=== PATIENT | male | born 1945 | race Caucasian/White ===

== ENCOUNTER 2019-08-08 10:16 | Outpatient (RCR) | payer MEDICARE, SELFPAY ==
[2019-05-10 15:16] LABS: INR 2.1; Prothrombin Time 23.3 Seconds (11.1-14.7)
[2019-06-08 10:53] LABS: INR 2.1; Prothrombin Time 23.3 Seconds (11.1-14.7)
[2019-07-05 15:57] LABS: INR 1.6
[2019-07-24 10:04] LABS: INR 1.9; Prothrombin Time 21.2 Seconds (11.1-14.7)
== END 2019-08-08 23:59 | disposition home or self-care (01) ==
LOC: ANHLAB 10:16
PROVIDERS: PCP Internal Medicine; Visit Provider Internal Medicine Cardiovascular Disease
DX: Z51.81 Encounter for therapeutic drug level monitoring (principal); Z79.01 Long term (current) use of anticoagulants; I48.91 Unspecified atrial fibrillation
CPT/HCPCS: 36415; 85610

== ENCOUNTER 2019-09-13 09:37 | Outpatient (RCR) | payer MEDICARE, SELFPAY ==
[2019-08-15 09:39] LABS: INR 2.6; Prothrombin Time 27.6 Seconds (11.1-14.7)
[2019-09-13 10:37] LABS: INR 2.1; Prothrombin Time 23.2 Seconds (11.1-14.7)
== END 2019-11-13 23:59 | disposition home or self-care (01) ==
LOC: ANHLAB 09:37
PROVIDERS: PCP Internal Medicine; Visit Provider Internal Medicine Cardiovascular Disease
DX: Z51.81 Encounter for therapeutic drug level monitoring (principal); I48.91 Unspecified atrial fibrillation; Z79.01 Long term (current) use of anticoagulants
CPT/HCPCS: 36415; 85610

== ENCOUNTER 2020-02-08 09:33 | Outpatient (RCR) | payer MEDICARE, SELFPAY ==
[2019-11-27 11:52] LABS: INR 2.5; Prothrombin Time 26.1 Seconds (11.1-14.7)
[2019-12-26 14:25] LABS: INR 2.8
[2020-02-08 10:13] LABS: INR 3.6; Prothrombin Time 35.1 Seconds (11.1-14.7)
== END 2020-02-25 23:59 | disposition home or self-care (01) ==
LOC: ANHLAB 09:33
PROVIDERS: PCP Internal Medicine; Visit Provider Internal Medicine Cardiovascular Disease
DX: I48.91 Unspecified atrial fibrillation (principal); Z79.01 Long term (current) use of anticoagulants
CPT/HCPCS: 36415; 85610

== ENCOUNTER 2020-05-14 09:23 | Outpatient (RCR) | payer MEDICARE, SELFPAY ==
[2020-03-03 09:13] LABS: INR 3.2; Prothrombin Time 32.2 Seconds (11.1-14.7)
[2020-04-15 12:20] LABS: Prothrombin Time 30.9 Seconds (11.1-14.7)
[2020-05-14 10:57] LABS: INR 2.9; Prothrombin Time 31.2 Seconds (11.1-14.7)
== END 2020-06-01 23:59 | disposition home or self-care (01) ==
LOC: ANHLAB 09:23
PROVIDERS: PCP Internal Medicine; Visit Provider Internal Medicine Cardiovascular Disease
DX: Z51.81 Encounter for therapeutic drug level monitoring (principal); I48.91 Unspecified atrial fibrillation; Z79.01 Long term (current) use of anticoagulants
CPT/HCPCS: 36415; 85610

== ENCOUNTER 2020-08-21 13:37 | Outpatient (RCR) | payer MEDICARE, SELFPAY ==
[2020-06-05 15:33] LABS: INR 2.8; Prothrombin Time 29.8 Seconds (11.1-14.7)
[2020-07-10 10:52] LABS: INR 2.9; Prothrombin Time 31.1 Seconds (11.1-14.7)
[2020-08-21 14:49] LABS: INR 2.3; Prothrombin Time 25.7 Seconds (11.1-14.7)
== END 2020-09-03 23:59 | disposition home or self-care (01) ==
LOC: ANHLAB 13:37
PROVIDERS: PCP Internal Medicine; Visit Provider Internal Medicine Cardiovascular Disease
DX: Z51.81 Encounter for therapeutic drug level monitoring (principal); I48.91 Unspecified atrial fibrillation; Z79.01 Long term (current) use of anticoagulants
CPT/HCPCS: 36415; 85610

== ENCOUNTER 2020-11-18 10:51 | Outpatient (RCR) | payer MEDICARE, SELFPAY ==
[2020-09-17 12:00] LABS: INR 3.1; Prothrombin Time 32.6 Seconds (11.1-14.7)
[2020-10-16 10:20] LABS: INR 2.7
[2020-11-18 11:24] LABS: INR 2.8; Prothrombin Time 30.3 Seconds (11.1-14.7)
== END 2020-12-16 23:59 | disposition home or self-care (01) ==
LOC: ANHLAB 10:51
PROVIDERS: PCP Internal Medicine; Visit Provider Internal Medicine Cardiovascular Disease
DX: Z51.81 Encounter for therapeutic drug level monitoring (principal); I48.0 Paroxysmal atrial fibrillation; Z79.01 Long term (current) use of anticoagulants
CPT/HCPCS: 36415; 85610

== ENCOUNTER 2021-02-26 09:13 | Outpatient (RCR) | payer MEDICARE, SELFPAY ==
[2020-12-24 12:14] LABS: INR 3.1; Prothrombin Time 32.3 Seconds (11.1-14.7)
[2021-01-23 10:31] LABS: INR 3.1
[2021-02-26 09:54] LABS: Prothrombin Time 22.5 Seconds (11.1-14.7)
== END 2021-03-24 23:59 | disposition home or self-care (01) ==
LOC: ANHLAB 09:13
PROVIDERS: Visit Provider Internal Medicine Cardiovascular Disease
DX: Z51.81 Encounter for therapeutic drug level monitoring (principal); I48.0 Paroxysmal atrial fibrillation; Z79.01 Long term (current) use of anticoagulants
CPT/HCPCS: 36415; 85610

== ENCOUNTER 2021-05-05 12:27 | Outpatient (RCR) | payer MEDICARE, SELFPAY ==
[2021-04-02 10:52] LABS: Prothrombin Time 21.8 Seconds (11.1-14.7)
[2021-05-05 13:05] LABS: INR 2.9; Prothrombin Time 29.2 Seconds (11.1-14.7)
== END 2021-07-01 23:59 | disposition home or self-care (01) ==
LOC: ANHLAB 12:27
PROVIDERS: Visit Provider Internal Medicine Cardiovascular Disease
DX: Z51.81 Encounter for therapeutic drug level monitoring (principal); I48.0 Paroxysmal atrial fibrillation; Z79.01 Long term (current) use of anticoagulants
CPT/HCPCS: 36415; 85610

== ENCOUNTER 2021-09-10 10:56 | Outpatient (RCR) | payer MEDICARE, SELFPAY ==
[2021-07-07 10:27] LABS: INR 2.8; Prothrombin Time 28.6 Seconds (11.1-14.7)
[2021-09-10 11:20] LABS: INR 2.6; Prothrombin Time 26.7 Seconds (11.1-14.7)
== END 2021-10-05 23:59 | disposition home or self-care (01) ==
LOC: ANHLAB 10:56
PROVIDERS: Visit Provider Internal Medicine Cardiovascular Disease
DX: Z51.81 Encounter for therapeutic drug level monitoring (principal); I48.0 Paroxysmal atrial fibrillation; Z79.01 Long term (current) use of anticoagulants
CPT/HCPCS: 36415; 85610

== ENCOUNTER 2021-12-02 10:34 | Outpatient (RCR) | payer MEDICARE, SELFPAY ==
[2021-10-07 14:13] LABS: INR 2.5; Prothrombin Time 26.1 Seconds (11.1-14.7)
[2021-12-02 10:57] LABS: INR 2.3; Prothrombin Time 24.6 Seconds (11.1-14.7)
== END 2022-01-05 23:59 | disposition home or self-care (01) ==
LOC: ANHLAB 10:34
PROVIDERS: Visit Provider Internal Medicine Cardiovascular Disease
DX: Z51.81 Encounter for therapeutic drug level monitoring (principal); I48.91 Unspecified atrial fibrillation; Z79.01 Long term (current) use of anticoagulants
CPT/HCPCS: 36415; 85610

== ENCOUNTER 2022-05-24 10:51 | Outpatient (RCR) | payer MEDICARE, SELFPAY ==
[2022-03-03 11:55] LABS: INR 2.1; Prothrombin Time 22.9 Seconds (11.1-14.7)
[2022-03-31 11:54] LABS: INR 3.1; Prothrombin Time 30.8 Seconds (11.1-14.7)
[2022-05-06 12:34] LABS: INR 3.8; Prothrombin Time 36.2 Seconds (11.1-14.7)
[2022-05-24 12:04] LABS: INR 2.7
== END 2022-06-01 23:59 | disposition home or self-care (01) ==
LOC: ANHLAB 10:51
PROVIDERS: Visit Provider Internal Medicine Cardiovascular Disease
DX: Z51.81 Encounter for therapeutic drug level monitoring (principal); I48.91 Unspecified atrial fibrillation; Z79.01 Long term (current) use of anticoagulants
CPT/HCPCS: 36415; 85610

== ENCOUNTER 2022-09-29 10:40 | Outpatient (RCR) | payer MEDICARE, SELFPAY ==
[2022-07-08 11:50] LABS: INR 2.6; Prothrombin Time 27.2 Seconds (11.1-14.7)
[2022-08-06 12:19] LABS: Prothrombin Time 21.8 Seconds (11.1-14.7)
[2022-09-07 11:52] LABS: INR 2.7; Prothrombin Time 27.9 Seconds (11.1-14.7)
[2022-09-29 11:11] LABS: INR 3.1; Prothrombin Time 31.1 Seconds (11.1-14.7)
== END 2022-10-06 23:59 | disposition home or self-care (01) ==
LOC: ANHLAB 10:40
PROVIDERS: Visit Provider Internal Medicine Cardiovascular Disease
DX: Z51.81 Encounter for therapeutic drug level monitoring (principal); I48.91 Unspecified atrial fibrillation; Z79.01 Long term (current) use of anticoagulants
CPT/HCPCS: 36415; 85610

== ENCOUNTER 2022-10-26 10:33 | Outpatient (RCR) | payer MEDICARE, SELFPAY ==
[2022-10-26 11:06] LABS: INR 2.9; Prothrombin Time 29.1 Seconds (11.1-14.7)
== END 2023-01-19 08:54 | disposition home or self-care (01) ==
LOC: ANHLAB 10:33
PROVIDERS: PCP Hospitalist; Visit Provider Internal Medicine Cardiovascular Disease
DX: Z51.81 Encounter for therapeutic drug level monitoring (principal); I48.91 Unspecified atrial fibrillation; Z79.01 Long term (current) use of anticoagulants
CPT/HCPCS: 36415; 85610

== ENCOUNTER 2023-02-18 08:56 | Outpatient (RCR) | payer MEDICARE, SELFPAY ==
[2022-11-24 11:07] LABS: INR 2.5; Prothrombin Time 28.9 Seconds (11.1-14.7)
[2022-12-22 12:24] LABS: INR 1.9; Prothrombin Time 22.8 Seconds (11.1-14.7)
[2023-01-19 09:23] LABS: INR 1.9; Prothrombin Time 22.9 Seconds (11.1-14.7)
[2023-02-18 12:07] LABS: INR 2.6; Prothrombin Time 29.9 Seconds (11.1-14.7)
== END 2023-02-22 23:59 | disposition home or self-care (01) ==
LOC: ANHLAB 08:56
PROVIDERS: PCP Hospitalist; Referring Provider Hospitalist; Visit Provider Internal Medicine Cardiovascular Disease
DX: Z51.81 Encounter for therapeutic drug level monitoring (principal); I48.0 Paroxysmal atrial fibrillation; Z79.01 Long term (current) use of anticoagulants
CPT/HCPCS: 36415; 85610

== ENCOUNTER 2023-05-23 10:25 | Outpatient (RCR) | payer MEDICARE, SELFPAY ==
[2023-03-18 10:24] LABS: INR 2.1; Prothrombin Time 25.1 Seconds (11.1-14.7)
[2023-04-15 10:56] LABS: INR 2.1; Prothrombin Time 24.5 Seconds (11.1-14.7)
[2023-05-23 11:13] LABS: INR 2.6; Prothrombin Time 29.8 Seconds (11.1-14.7)
== END 2023-06-16 23:59 | disposition home or self-care (01) ==
LOC: ANHLAB 10:25
PROVIDERS: PCP Hospitalist; Visit Provider Internal Medicine Cardiovascular Disease
DX: Z51.81 Encounter for therapeutic drug level monitoring (principal); I48.0 Paroxysmal atrial fibrillation; Z79.01 Long term (current) use of anticoagulants
CPT/HCPCS: 36415; 85610

== ENCOUNTER 2023-08-09 14:39 | Outpatient (CLI) | payer MEDICARE, SELFPAY ==
[2023-08-09 15:12] LABS: Magnesium 1.2 mg/dL (1.6-2.3)
== END 2023-08-09 14:40 | disposition home or self-care (01) ==
LOC: ANHLAB 14:42
PROVIDERS: PCP Hospitalist; Visit Provider Internal Medicine Cardiovascular Disease
DX: I25.118 Atherosclerotic heart disease of native coronary artery with other forms of angina pectoris (principal); E11.59 Type 2 diabetes mellitus with other circulatory complications; I42.8 Other cardiomyopathies; I15.2 Hypertension secondary to endocrine disorders
CPT/HCPCS: 36415; 83735; 85610

== ENCOUNTER 2023-09-09 10:48 | Outpatient (RCR) | payer MEDICARE, SELFPAY ==
[2023-06-21 10:45] LABS: INR 2.9; Prothrombin Time 32.2 Seconds (11.1-14.7)
[2023-08-09 15:20] LABS: INR 2.1; Prothrombin Time 25.5 Seconds (11.1-14.7)
[2023-09-09 11:23] LABS: INR 2.8; Prothrombin Time 31.5 Seconds (11.1-14.7)
== END 2023-09-19 23:59 | disposition home or self-care (01) ==
LOC: ANHLAB 10:48
PROVIDERS: PCP Hospitalist; Visit Provider Internal Medicine Cardiovascular Disease
DX: Z51.81 Encounter for therapeutic drug level monitoring (principal); I48.0 Paroxysmal atrial fibrillation; Z79.01 Long term (current) use of anticoagulants
CPT/HCPCS: 36415; 85610

== ENCOUNTER 2023-11-10 10:05 | Outpatient (RCR) | payer MEDICARE, SELFPAY ==
[2023-10-12 12:14] LABS: INR 2.5; Prothrombin Time 28.8 Seconds (11.1-14.7)
[2023-11-10 11:26] LABS: INR 2.4; Prothrombin Time 27.8 Seconds (11.1-14.7)
== END 2024-01-10 23:59 | disposition home or self-care (01) ==
LOC: ANHLAB 10:05
PROVIDERS: PCP Hospitalist; Visit Provider Internal Medicine Cardiovascular Disease
DX: Z51.81 Encounter for therapeutic drug level monitoring (principal); I48.0 Paroxysmal atrial fibrillation; Z79.01 Long term (current) use of anticoagulants
CPT/HCPCS: 36415; 85610

== ENCOUNTER 2024-02-22 10:27 | Outpatient (RCR) | payer MEDICARE, SELFPAY ==
[2023-12-13 11:11] LABS: INR 2.3; Prothrombin Time 25.7 Seconds (11.1-14.7)
[2024-01-09 10:03] LABS: INR 2.3; Prothrombin Time 25.2 Seconds (11.1-14.7)
[2024-02-14 15:15] LABS: INR 1.6; Prothrombin Time 20.1 Seconds (11.1-14.7)
[2024-02-22 11:07] LABS: INR 2.1; Prothrombin Time 23.9 Seconds (11.1-14.7)
== END 2024-03-12 23:59 | disposition home or self-care (01) ==
LOC: ANHLAB 10:27
PROVIDERS: PCP Hospitalist; Visit Provider Internal Medicine Cardiovascular Disease
DX: Z51.81 Encounter for therapeutic drug level monitoring (principal); I48.0 Paroxysmal atrial fibrillation; Z79.01 Long term (current) use of anticoagulants
CPT/HCPCS: 36415; 85610

== ENCOUNTER 2024-06-05 11:37 | Outpatient (RCR) | payer MEDICARE, SELFPAY ==
[2024-03-29 11:31] LABS: Prothrombin Time 32.1 Seconds (11.1-14.7)
[2024-05-01 10:36] LABS: INR 2.2
[2024-06-05 12:07] LABS: INR 2.1; Prothrombin Time 23.9 Seconds (11.1-14.7)
== END 2024-06-27 23:59 | disposition home or self-care (01) ==
LOC: ANHLAB 11:37
PROVIDERS: PCP Hospitalist; Visit Provider Internal Medicine Cardiovascular Disease
DX: Z79.01 Long term (current) use of anticoagulants (principal); I48.0 Paroxysmal atrial fibrillation
CPT/HCPCS: 36415; 85610

== ENCOUNTER 2024-09-28 10:21 | Outpatient (RCR) | payer MEDICARE, SELFPAY ==
[2024-07-05 13:00] LABS: INR 2.4; Prothrombin Time 26.8 Seconds (11.1-14.7)
[2024-08-03 11:32] LABS: INR 2.2; Prothrombin Time 24.8 Seconds (11.1-14.7)
[2024-08-31 10:00] LABS: INR 2.7; Prothrombin Time 29.3 Seconds (11.1-14.7)
== END 2024-10-03 23:59 | disposition home or self-care (01) ==
LOC: ANHLAB 10:21
PROVIDERS: PCP Hospitalist; Visit Provider Internal Medicine Cardiovascular Disease
DX: I48.0 Paroxysmal atrial fibrillation (principal); Z79.01 Long term (current) use of anticoagulants
CPT/HCPCS: 36415; 85610

== ENCOUNTER 2025-01-23 11:20 | Outpatient (RCR) | payer MEDICARE, SELFPAY ==
[2024-10-31 14:16] LABS: INR 3.0; Prothrombin Time 31.8 Seconds (11.1-14.7)
[2024-11-29 12:12] LABS: INR 2.9; Prothrombin Time 30.4 Seconds (11.1-14.7)
[2024-12-22 10:40] LABS: INR 3.8; Prothrombin Time 36.1 Seconds (11.1-14.7)
[2024-12-31 12:46] LABS: INR 3.6; Prothrombin Time 34.8 Seconds (11.1-14.7)
[2025-01-14 12:39] LABS: INR 4.3; Prothrombin Time 39.7 Seconds (11.1-14.7)
[2025-01-23 12:14] LABS: INR 3.0; Prothrombin Time 30.0 Seconds (11.1-14.7)
== END 2025-01-29 23:59 | disposition home or self-care (01) ==
LOC: ANHLAB 11:20
PROVIDERS: PCP Hospitalist; Visit Provider Internal Medicine Cardiovascular Disease
DX: Z51.81 Encounter for therapeutic drug level monitoring (principal); I48.0 Paroxysmal atrial fibrillation; Z79.01 Long term (current) use of anticoagulants
CPT/HCPCS: 36415; 85610

== ENCOUNTER 2025-03-08 13:24 | Emergency (ER) | payer MEDICARE, SELFPAY ==
[2025-03-08] VITALS (7 sets, daily range): BP systolic 95–162; BP diastolic 57–91; PULSE 83–102; RESP 18–22; TEMP 37.7; O2SAT 94–100
--- NOTE | ~2025-03-08 | CT_ITS ---
EXAMINATION: CT abdomen pelvis w con DATE: 03/08/2025 18:08 INDICATION: Transaminitis TECHNIQUE: Computed tomography (CT) of the abdomen and pelvis was performed with 100 cc Omnipaque 350 intravenous contrast. The dose-length product was 653.21 mGy-cm. Automated exposure control and iterative reconstruction technique were employed. COMPARISON: CT dated 09/14/2015 FINDINGS: There is bilateral lower lobe atelectasis. Heart size normal. Status post cholecystectomy with expected prominence of the bile ducts. The spleen contains a small subcentimeter cysts. There is a small 1 cm left renal cyst. There is atrophy of the pancreas with fatty replacement. No hydronephrosis. There is atherosclerosis of the aorta without evidence for aneurysm. No lymphadenopathy. Nonobstructive bowel pattern. No evidence for diverticulitis or appendicitis.No free air or free fluid. Enlarged prostate gland. Severe lumbar spondylosis. There is grade 2 spondylolisthesis at L5-S1 secondary to spondylolysis. IMPRESSION: 1. No acute abdominal abnormality. Reviewed, dictated and finalized at location O.
--- NOTE | ~2025-03-08 | XR_ITS ---
XR chest 2V 03/08/2025 14:58 Indication: Weakness. Procedure: 2 view chest Comparison: 09/14/2015 Findings: Status post median sternotomy for CABG. Chronic left basilar infiltrates, most consistent with atelectasis or scarring. No significant effusion no acute focal pneumonia, edema or pneumothorax. Impression: 1: No acute cardiopulmonary disease. 2: Chronic left basilar infiltrates, consistent with atelectasis or scarring. Reviewed, dictated and finalized at location O. Impression: 1: No acute cardiopulmonary disease. 2: Chronic left basilar infiltrates, consistent with atelectasis or scarring.
--- OUTSIDE RECORDS SUMMARY | 2025-03-08 13:38 | XMS_ITS | Encounter Summary ---
Author Organization [facility] Address [address] [place] [address] Care Team Providers Care Drum Barker Operator Name Role Phone Lino Sarah MD Primary Care Provider Un available Encounter Details Date Type Department Care Team (Late st Contact Info) Description 11/20/2007 Outpatient Historical [facility] Internal Medicine [place] Julián [address] [place] [phone] Lino Carrillo ms, MD Social History Tobacco Use Types Packs/Day Years Used Date Smoking Tobacco: Never Assessed Sex and Gender Information Value Date Recorded Sex Assigned at Not on file 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
--- OUTSIDE RECORDS SUMMARY | 2025-03-08 13:39 | XMS_ITS | Encounter Summary ---
Author Organization [facility] Address [address] [place] [address] Care Team Providers Care Property And Supply Officer Name Role Phone Lino Sarah MD Primary Care Provider Un available Encounter Details Date Type Department Care Team (Late st Contact Info) Description 10/27/2004 Outpatient Historical 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 Gender Identity Not on file Sexual Orientation Not on file documented as of this encounter Last Filed Vital Signs Vital Sign Reading Time Taken Comments Blood Pressure 132/86 10/27/2004 10:15 AM CDT Pulse 72 10/27/2004 10:15 AM CDT Temperature 36.2 C (97.2 F) 10/27/2004 10:15 AM CDT Respiratory Rate 16 10/27/2004 10:15 AM CDT Oxygen Saturation - - Inhaled Oxygen Concentration - - Weight 111.1 kg (245 lb) 10/27/2004 10:15 AM CDT Height 182.9 cm (6') 10/27/2004 10:15 AM CDT Body Mass Index 33.23 10/27/2004 10:15 AM CDT documented in this encounter Plan of Treatment Not on file documented as of this encounter Visit Diagnoses Not on filedocumented in this encounter Care Teams Property And Supply Officer Relationship Specialty Start Date End Date Lino Sarah MD NO ADDRESS ON FILE PCP - General 11/29/07 documented as of this encounter
--- OUTSIDE RECORDS SUMMARY | 2025-03-08 13:39 | XMS_ITS | Encounter Summary ---
Author Organization [employer] Address [address] Attn: Epic Prelude ADT [place] [address] Care Team Providers Care Fisheries Technician Name Role Phone Lino Sarah MD Primary Care Provider Un available Encounter Details Date Type Department Care Team (Late st Contact Info) Description 10/21/1998 Outpatient Historical Elvira Treviño MD [address] [place] [address] Social History Tobacco Use Types Packs/Day Years Used Date Smoking Tobacco: Never Assessed Sex and Gender Information Value Date Recorded Sex Assigned at Not on file 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
--- OUTSIDE RECORDS SUMMARY | 2025-03-08 13:39 | XMS_ITS | Encounter Summary ---
Author Organization [employer] Address 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 Gender Identity Not on file Sexual Orientation Not on file documented as of this encounter Plan of Treatment Not on file documented as of this encounter Procedures Procedure Name Priority Date/Time Associated Diagnosis Comments PT AND APTT Routine 03/01/2007 12:25 PM CDT CBC WITH DIFFERENTIAL Routine 03/01/2007 12:25 PM CDT CBC WITH DIFFERENTIAL Routine 03/01/2007 12:25 PM CDT BASIC METABOLIC PANEL Routine 03/01/2007 12:25 PM CDT documented in this encounter Results * CBC WITH DIFFERENTIAL (03/01/2007 12:25 PM CDT) NEUTROPHILS 61 45 - 70 % INTERFAC E SYSTEM LYMPHOCYTES 30 16 - 45 % INTERFAC E SYSTEM MONOCYTES 6 3 - 13 % INTERFACE SYSTEM EOSINOPHILS 2 0 - 7 % INTERFAC E SYSTEM BASOPHILS 1 0 - 2 % INTERFACE SYSTEM NEUTROPHIL ABSOLUTE 4.59 1.90 - 7.00 K/uL INTERFACE SYSTEM LYMPHOCYTE ABSOLUTE 2.28 0.70 - 4.50 K/uL INTERFACE SYSTEM MONOCYTE ABSOLUTE 0.46 0.10 - 1.30 K/uL INTERFACE SYSTEM EOSINOPHIL ABSOLUTE 0.17 0.00 - 0.70 K/uL INTERFACE SYSTEM BASOPHILS ABSOLUTE 0.05 0.00 - 0.20 K/uL INTERFACE SYSTEM 03/01/2007 12:[address] [facility] Nataliia Burnham MD HEMATOLOGY ORDERABLES E dited Performing Organization Address City/[facility] de Phone Number INTERFACE SYSTEM Refer to clinic/hospital department * (ABNORMAL) CBC WITH DIFFERENTIAL (03/01/2007 12:25 PM CDT) WBC 7.6 4.0 - 9.8 K/uL INTERFACE SYSTEM RBC 4.69 4.50 - 5.40 M/uL INTERFACE SYSTEM HEMOGLOBIN 15.0 13.6 - 16.5 g/dL INTERFACE SYSTEM HEMATOCRIT 41.2 40.0 - 48.0 % INTERFACE SYSTEM MCV 87.8 82.0 - 99.0 fL INTERFACE SYSTEM MCH 32.0 27.2 - 32.6 pg INTERFACE SYSTEM MCHC 36.4(H) 31.5 - 35.5 % INTERFACE SYSTEM RDW 12.2 11.5 - 14.5 % INTERFACE SYSTEM RDW-STDEV 39.3 37.1 - 48.7 fL INTERFACE SYSTEM PLATELETS 171 140 - 350 K/uL INTERFACE SYSTEM MPV 10.9 9.3 - 12.4 fL INTERFACE SYSTEM 03/01/2007 12:2 5 PM CDT Nataliia Burnham MD HEMATOLOGY ORDERABLES E dited Performing Organization Address [facility] de Phone Number INTERFACE SYSTEM Refer to clinic/hospital department * (ABNORMAL) BASIC METABOLIC PANEL (03/01/2007 12:25 PM CDT) GLUCOSE 280(H) 65 - 99 mg/dL INTERFACE SYSTEM CREATININE 1.09 0.67 - 1.17 mg/dL INTERFACE SYSTEM CALCIUM 10.7(H) 8.4 - 10.2 mg/dL INTERFACE SYSTEM BUN 27(H) 6 - 20 mg/dL INTERFACE SYSTEM SODIUM 133(L) 135 - 145 mmol/L INTERFACE SYSTEM POTASSIUM 4.9 3.5 - 4.9 mmol/L INTERFACE SYSTEM CHLORIDE 101 96 - 108 mmol/L INTERFACE SYSTEM CO2 26 22 - 30 mmol/L INTERFACE SYSTEM GFR, >60 >=60 mL/min/1. 7 sq meter INTERFACE SYSTEM GFR >60 >=60 mL/min/1. 7 sq meter INTERFACE SYSTEM Comment: Estimated GFR rate interpretative information for both Americans and non- Americans is available on the [facility] Intranet at: [email or web address] Select: Lab Policies and Procedures Select: Reference Ranges - GFR 03/01/2007 12:2 5 PM CDT Nataliia Burnham MD CHEMISTRY ORDERABLES Ed ited INTERFACE SYSTEM Refer to clinic/hospital department * PT AND APTT (03/01/2007 12:25 PM CDT) PTT 28.6 24.4 - 36.4 Seconds INTERFACE SYSTEM Comment: PTT Therapeutic Range: Heparin Level PTT (seconds) <0.10 units/mL <53 0.10 - 0.30 units/mL 53 - 67 0.30 - 0.70 units/mL* 67 - 95* 0.70 - 1.00 units/mL 95 - 116 *corresponds to therapeutic range for unfractionated heparin PROTIME 13.5 12.7 - 15.1 Seconds INTERFACE SYSTEM INR 1.0 0.9 - 1.1 INTERFACE SYSTEM Comment: INR Therapeutic Range: Adult: 2.0 - 3.0 for pulmonary embolism or prophylaxis against venous thrombosis or systemic embolization. 2.0 - 3.0 for patients with tissue heart valves. 2.5 - 3.5 for patients with mechanical heart valves or post MT. Pediatric (12 years and under): 1.5 - 3.0 Although the target range in children is not well established , INR values of 1.5 - 3.0 are recommended for most patients. Higher values have been used in children with prosthetic cardiac valves and hereditary clotting disorders. (<3 days) therapeutic ranges have not been established. 03/01/2007 12:2 5 PM CDT us Nataliia Burnham MD HEMATOLOGY ORDERABLES E dited INTERFACE SYSTEM Refer to clinic/hospital department documented in this encounter Visit Diagnoses Diagnosis Nonspecific abnormal unspecified cardiovascular function study- Primary documented in this encounter Care Teams Director Social Relationship Specialty Start Date End Date Lino Sarah MD NO ADDRESS ON FILE PCP - General 11/29/07 documented as of this encounter
--- OUTSIDE RECORDS SUMMARY | 2025-03-08 13:39 | XMS_ITS | Encounter Summary ---
Author Organization [facility] Address [address] [place] [address] Care Team Providers Care New Car Inspector Name Role Phone Lino Sarah MD Primary Care Provider Un available Encounter Details Date Type Department Care Team (Late st Contact Info) Description 2006 Outpatient Historical [facility] Internal Medicine [place] Julián [address] [address] [place] [address] Bobby Choe MD [address] [place] [address] Social History Tobacco Use Types Packs/Day Years Used Date Smoking Tobacco: Never Assessed Sex and Gender Information Value Date Recorded Sex Assigned at Not on file 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 Gender Identity Not on file Sexual Orientation Not on file documented as of this encounter Last Filed Vital Signs Vital Sign Reading Time Taken Comments Blood Pressure 116/76 2006 1:15 PM CDT Pulse 60 2006 1:15 PM CDT Temperature 36.2 C (97.2 F) 2006 1:15 PM CDT Respiratory Rate 20 2006 1:15 PM CDT Oxygen Saturation - - Inhaled Oxygen Concentration - - Weight 108 kg (238 lb) 2006 1:15 PM CDT Height 176.5 cm (5' 9.5) 2006 1:15 PM CDT Body Mass Index 34.64 2006 1:15 PM CDT documented in this encounter Plan of Treatment Not on file documented as of this encounter Visit Diagnoses Not on filedocumented in this encounter Care Teams New Car Inspector Relationship Specialty Start Date End Date Lino Sarah MD NO ADDRESS ON FILE PCP - General 11/29/07 documented as of this encounter
--- OUTSIDE RECORDS SUMMARY | 2025-03-08 13:39 | XMS_ITS | Encounter Summary ---
Author Organization [facility] Address [address] 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 PCP: ebony. WHO CALLED: Pharmacy called. PHARMACY NUMBER: [phone] SECTION 1: REQUESTED ACTION marnie 02/01/06 at 01:46 pm: MEDICATION REQUEST: Patient requests a refill. MEDICATIONS: PLAVIX ORAL TABLET 75 MG, 1 Every Day, 30 Dispensed, 3 Fills, 30 Duration/Days Supply, status: CONTINUED, 09/01/2005. GLIPIZIDE XL ORAL TABLET 24 HR 10 MG, 1 Every Day, 30 Dispensed, 3 Fills, 30 Duration/Days Supply, status: CONTINUED, 09/01/2005. NORVASC ORAL TABLET 10 MG, 1 Every Day, 30 Dispensed, 3 Fills, 30 Duration/Days Supply, status: CONTINUED, 09/01/2005. ISOSORBIDE MONONITRATE ORAL TABLET 24 HR 30 MG, 1 Every Day, 30 Dispensed, 3 Fills, 30 Duration/Days Supply, status: CONTINUED, 09/01/2005. VYTORIN ORAL TABLET 10-40 MG, 1 Every Day, 30 Dispensed, 3 Fills, 30 Duration/Days Supply, status: CONTINUED, 09/01/2005. LISINOPRIL ORAL TABLET 20 MG, 1 Every Day, 30 Dispensed, 3 Fills, 30 Duration/Days Supply, status: CONTINUED, 09/01/2005. TOPROL XL ORAL TABLET 24 HR 50 MG, 1 Every Day, 30 Dispensed, 3 Fills, 30 Duration/Days Supply, status: CONTINUED, 09/01/2005. last fills 12-30-05 FINAL ACTION: william 02/01/06 at 03:11 pm Called pharmacy at 02/01/06 at 03:11 pm. refilled x's 2 Electronically Signed by: Princess Long on Wednesday, February 01, 2006 documented in this encounter Plan of Treatment Not on file documented as of this encounter Visit Diagnoses Not on filedocumented in this encounter Care Teams Electron Gun Assembler Relationship Specialty Start Date End Date Lino Sarah MD NO ADDRESS ON FILE PCP - General 11/29/07 documented as of this encounter
--- OUTSIDE RECORDS SUMMARY | 2025-03-08 13:39 | XMS_ITS | Encounter Summary ---
Author Organization [facility] Address [address] [place] [address] Care Team Providers Care Milk Wagon Driver Name Role Phone Lino Sarah MD Primary Care Provider Un available Encounter Details Date Type Department Care Team (Late st Contact Info) Description 12/31/1999 Outpatient Historical [facility] Internal Medicine Dara Gallego [address] [address] [place] [phone] [place] [address] [place] [address] Social History Tobacco Use Types Packs/Day Years Used Date Smoking Tobacco: Never Assessed Sex and Gender Information Value Date Recorded Sex Assigned at Not on file 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
--- OUTSIDE RECORDS SUMMARY | 2025-03-08 13:39 | XMS_ITS | Encounter Summary ---
Author Organization [employer] Address 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 Gender Identity Not on file Sexual Orientation Not on file documented as of this encounter Plan of Treatment Not on file documented as of this encounter Procedures Procedure Name Priority Date/Time Associated Diagnosis Comments CBC WITH DIFFERENTIAL Routine 10/27/2004 11:00 AM CDT CBC WITH DIFFERENTIAL Routine 10/27/2004 11:00 AM CDT PSA Routine 10/27/2004 11:00 AM CDT LIPASE Routine 10/27/2004 11:00 AM CDT HEMOGLOBIN A1C Routine 10/27/2004 11:00 AM CDT AMYLASE Routine 10/27/2004 11:00 AM CDT COMPREHENSIVE METABOLIC PANEL Routine 10/27/2004 11:00 AM CDT documented in this encounter Results * CBC WITH DIFFERENTIAL (10/27/2004 11:00 AM CDT) NEUTROPHILS 57 45 - 70 % INTERFAC E SYSTEM LYMPHOCYTES 32 16 - 45 % INTERFAC E SYSTEM MONOCYTES 7 3 - 13 % INTERFACE SYSTEM EOSINOPHILS 3 0 - 7 % INTERFAC E SYSTEM BASOPHILS 1 0 - 2 % INTERFACE SYSTEM NEUTROPHIL ABSOLUTE 3.10 1.90 - 7.00 K/uL INTERFACE SYSTEM LYMPHOCYTE ABSOLUTE 1.76 0.70 - 4.50 K/uL INTERFACE SYSTEM MONOCYTE ABSOLUTE 0.38 0.10 - 1.30 K/uL INTERFACE SYSTEM EOSINOPHIL ABSOLUTE 0.17 0.00 - 0.70 K/uL INTERFACE SYSTEM BASOPHILS ABSOLUTE 0.04 0.00 - 0.20 K/uL INTERFACE SYSTEM 10/27/2004 11:0 0 AM CDT us Kaz Darnell MD HEMATOLOGY ORDERABLES Final Res ult Performing Organization Address [facility] de Phone Number INTERFACE SYSTEM Refer to clinic/hospital department * (ABNORMAL) CBC WITH DIFFERENTIAL (10/27/2004 11:00 AM CDT) WBC 5.5 4.0 - 9.8 K/uL INTERFACE SYSTEM RBC 5.10 4.50 - 5.40 M/uL INTERFACE SYSTEM HEMOGLOBIN 16.2 13.6 - 16.5 g/dL INTERFACE SYSTEM HEMATOCRIT 48.1(H) 40.0 - 48.0 % INTERFACE SYSTEM MCV 94.3 82.0 - 99.0 fL INTERFACE SYSTEM MCH 31.8 27.2 - 32.6 pg INTERFACE SYSTEM MCHC 33.7 31.5 - 35.5 % INTERFACE SYSTEM RDW 12.9 11.5 - 14.5 % INTERFACE SYSTEM RDW-STDEV 44.6 37.1 - 48.7 fL INTERFACE SYSTEM PLATELETS 206 140 - 350 K/uL INTERFACE SYSTEM MPV 10.8 9.3 - 12.4 fL INTERFACE SYSTEM 10/27/2004 11:0 0 AM CDT us Kaz Darnell MD HEMATOLOGY ORDERABLES Final Res ult Performing Organization Address [facility] de Phone Number INTERFACE SYSTEM Refer to clinic/hospital department * PSA (10/27/2004 11:00 AM CDT) PSA 0.5 0.0 - 4.0 ng/mL INTERFACE SYSTEM Comment:Performed on [employer] E170 System 10/27/2004 11:0 0 AM CDT us Kaz Darnell MD CHEMISTRY ORDERABLES Final Resu lt Performing Organization Address [facility] Phone Number INTERFACE SYSTEM Refer to clinic/hospital department * LIPASE (10/27/2004 11:00 AM CDT) LIPASE 23 13 - 60 U/L INTERFAC E SYSTEM 10/27/2004 11:0 0 AM CDT us Kaz Darnell MD CHEMISTRY ORDERABLES Final Resu lt Performing Organization Address [facility] Phone Number INTERFACE SYSTEM Refer to clinic/hospital department * (ABNORMAL) HEMOGLOBIN A1C (10/27/2004 11:00 AM CDT) HEMOGLOBIN A1C 7.9(H) 3.9 - 6.1 % of Hgb INTERFACE SYSTEM Comment: Note: Analyzer upgraded from [employer] Variant to Variant II. No change in methodology. GLUCOSE, MEAN BLOOD 177 mg/dL INTERFACE SYSTEM 10/27/2004 11:0 0 AM CDT us Kaz Darnell MD CHEMISTRY ORDERABLES Final Resu lt Performing Organization Address [facility] Phone Number INTERFACE SYSTEM Refer to clinic/hospital department * AMYLASE (10/27/2004 11:00 AM CDT) AMYLASE 51 28 - 100 U/L INTERFACE SYSTEM 10/27/2004 11:0 0 AM CDT Result Alexis Darnell MD CHEMISTRY ORDERABLES Final Resu lt Performing Organization Address City/[facility] Phone Number INTERFACE SYSTEM Refer to clinic/hospital department * (ABNORMAL) COMPREHENSIVE METABOLIC PANEL (10/27/2004 11:00 AM CDT) GLUCOSE 296(H) 65 - 109 mg/dL INTERFACE SYSTEM CREATININE 0.9 0.5 - 1.3 mg/dL INTERFACE SYSTEM CALCIUM 10.8(H) 8.6 - 10.2 mg/dL INTERFACE SYSTEM AST 48(H) 12 - 38 U/L INTERFACE SYSTEM ALKALINE PHOSPHATASE 171(H) 40 - 129 U/L INTERFACE SYSTEM BUN 20 6 - 20 mg/dL INTERFACE SYSTEM BILIRUBIN TOTAL 1.2(H) 0.2 - 1.0 mg/dL INTERFACE SYSTEM ALBUMIN 4.6 3.4 - 4.8 g/dL INTERFACE SYSTEM TOTAL PROTEIN 7.7 6.3 - 8.6 g/dL INTERFACE SYSTEM ALT 176(H) 0 - 41 U/L INTERFACE SYSTEM SODIUM 137 135 - 145 mmol/L INTERFACE SYSTEM POTASSIUM 4.9 3.5 - 4.9 mmol/L INTERFACE SYSTEM CHLORIDE 103 96 - 108 mmol/L INTERFACE SYSTEM CO2 22 22 - 30 mmol/L INTERFACE SYSTEM 10/27/2004 11:0 0 AM CDT us Kaz Darnell MD CHEMISTRY ORDERABLES Final Resu lt INTERFACE SYSTEM Refer to clinic/hospital department documented in this encounter Visit Diagnoses Diagnosis Abdominal pain, epigastric- Primary documented in this encounter Care Teams Dermatologist And Dermatopathologist Relationship Specialty Start Date End Date Lino Sarah MD NO ADDRESS ON FILE PCP - General 11/29/07 documented as of this encounter
--- OUTSIDE RECORDS SUMMARY | 2025-03-08 13:39 | XMS_ITS | Encounter Summary ---
Author Organization [employer] Address 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
--- OUTSIDE RECORDS SUMMARY | 2025-03-08 13:39 | XMS_ITS | Encounter Summary ---
Author Organization [employer] Address 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
--- OUTSIDE RECORDS SUMMARY | 2025-03-08 13:39 | XMS_ITS | Encounter Summary ---
Author Organization [employer] Address [address] 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 MEDICATIONS: Medication list current. CHIEF COMPLAINT establish physician. Pt's fbs is 323 HISTORY: HISTORY: 250.02-DM TYPE II UNCONTROLLED The diabetes remains stable. The patient has gained weight. Patient not compliant with diet instructions. The patient is not exercising. The patient has had a change invision, has polyuria, denies polydipsia, has polyphagia. The patient is not checking blood sugars out of office, does not have a glucometer. The patient is tolerating the medication. No recent laboratory work done. He has not follow up in about a year 272.4-HYPERLIPIDEMIA The patient has gained weight. The patient is not compliant with the low saturated fat diet. The patient does not exercise. Currently the patient is off all medication. 401.1-HYPERTENSION ESSENTIAL BENIGN The patient has gained weight. The patient is not compliant with diet. 414.00-CORONARY ARTERY DISEASE The patient's chest pain pattern has been stable. The patient deniesdyspnea on exertion, denies orthopnea, denies palpitations, denies pedal edema. No complications noted from the medication presently being used. No recent laboratory work done. 600.00-BPH W/O OBSTRUCTION No urinary symptoms HISTORY OF PRESENT ILLNESS: CURRENT PROBLEM LIST: 250.02 DM TYPE II UNCONTROLLED 272.4 HYPERLIPIDEMIA 401.1 HYPERTENSION ESSENTIAL BENIGN 414.00 CORONARY ARTERY DISEASE 600.00 BPH W/O OBSTRUCTION 715.91 OSTEOARTHRITIS/DJD SHOULDER 780.79 FATIGUE 789.06 ABD PAIN EPIGASTRIC CURRENT MEDICATION LIST: NITROGLYCERIN SUBLINGUAL TABLET SUBLINGUAL 0.4 MG, PRN LISINOPRIL ORAL TABLET 20 MG, 1 Every Day NORVASC ORAL TABLET 10 MG, 1 Every Day AVANDIA ORAL TABLET 2 MG, 1/2 Every Day GLIPIZIDE XL ORAL TABLET 24 HR 10 MG, 1 Every Day VYTORIN ORAL TABLET 10-40 MG, 1 Every Day TOPROL XL ORAL TABLET 24 HR 50 MG, 1 Every Day ISOSORBIDE MONONITRATE ORAL TABLET 24 HR 30 MG, 1 Every Day PLAVIX ORAL TABLET 75 MG, 1 Every Day ROS: GENERAL: Normal activity and energy level, no change in appetite. No major weight gain or loss. No malaise, chills, fever, diaphoresis. ALLERGIC/IMMUNOLOGIC: No hay fever or history of environmental allergies. No chronic problems with immunity. EYES: HAS BLURRED VISION. ENT: No hearing loss, epistaxis, hoarseness or dysphagia. No sinus congestion. ENDOCRINE: No heat or cold intolerance, no excessive thirst. CARDIAC: No chest pain, palpitations, orthopnea, dyspnea on exertion, or paroxysmal nocturnal dyspnea. RESPIRATORY: No dyspnea, cough, hemoptysis or wheezing. : No dysuria or hematuria. GI: No abdominal pain, nausea, vomiting, diarrhea, constipation, melena, or hematochezia. NEUROLOGIC: No weakness, dizziness, loss of consciousness, transient ischemic symptoms, or seizures. PSYCHIATRIC: No increased nervousness, mood changes or depression. Coping well. SOCIAL HISTORY: MARITAL HISTORY: , living with spouse. TOBACCO USE: Has no significant smoking history. ALCOHOL: Does not give any significant history of alcohol usage. PHYSICAL EXAMINATION: CONSTITUTIONAL: GENERAL APPEARANCE: Healthy appearing patient in no distress. EYES: PUPILS: Pupils equal and normally reactive to light and accommodation. EARS, NOSE, MOUTH AND THROAT: EARS: Tympanic membranes shiny without retraction. Canals unremarkable. Hearing grossly normal. ORAL: Inspection of gums, lips, palate, and teeth normal. No scars, lesions, or masses. Oral mucosaunremarkable with non-inflamed posterior pharynx. NECK/THYROID: Trachea midline. No thyroid enlargement, tenderness, or mass. No supraclavicular or cervical adenopathy. RESPIRATORY: Clear to auscultation and percussion. Normal respiratory effort. CARDIOVASCULAR: CARDIAC: Regular rhythm. No murmurs, rubs, or gallops. EDEMA/VARICOSITIES OF EXTREMITIES: No edema or varicosities. GASTROINTESTINAL: ABDOMEN: Soft, non-tender, without masses. Bowel sounds active. MUSCULOSKELETAL EXAM: EXTREMITIES: DIABETIC II FOOT EXAM: The patient`s monofilament exam was WNL, foot exam revealed no significant callousing, post tibial and dorsalis pedis pulses are within normal limits. NEUROLOGIC: CRANIAL NERVES: veterans' coordinator II-XII grossly intact. PSYCHIATRIC: Judgment appropriate. Oriented. Normal memory. Mood and affect appropriate. ASSESSMENT/PLAN: 250.02-DM TYPE II UNCONTROLLED ASSESSMENT: The diabetes is poorly controlled. Will not change medication, continue to monitor for complications. Will check laboratory. Will await lab to make adjustments in medications. There are many issues going on. Mark is non- compliant with his diet. He does not admit it but his does. He has not been checking his blood sugars. He has just kind of let his diabetes care go. I have spoken with him about the importance of good diabetic control especially with his other medical conditions. He understands. I have given him a glucometer and he will check his BS at least 2 times a day. We will await blood work to see what changes need to be made. LAB ORDERS: Order number: [id number] Test Ordered: COMPREHENSIVE METABOLIC PANEL 60179 Order number: [id number] Test Ordered: HEMOGLOBIN A1c 496 Order number: [id number] Test Ordered: LIPID PANEL 7600 Order number: [id number] Test Ordered: MICROALBUMIN/CREATININE RATIO, RANDOM URINE 6517 Order number: [id number] Test Ordered: PSA 5363 Order number: [id number] Test Ordered: TSH 899 272.4-HYPERLIPIDEMIA ASSESSMENT: Will not change medication, continue to monitor for complications. A low cholesterol diet was encouraged, not attempting to follow a low cholesterol diet. Weight loss was encouraged. Regular exercise was encouraged. Will check laboratory. 401.1-HYPERTENSION ESSENTIAL BENIGN ASSESSMENT: The blood pressure remains satisfactory. Will not change medication, continue to monitor for complications. Weight loss was discussed and encouraged. Regular exercise was encouraged. 414.00-CORONARY ARTERY DISEASE ASSESSMENT: The patient's chest pain pattern remains stable. Will not change medication, continue to monitor for complications. 600.00-BPH W/O OBSTRUCTION ASSESSMENT: no symptoms. Will check PSA SPECIALTY REFERRAL: DERMATOLOGY Dr. Bethel Joy ph: [phone] fax: [phone]. RETURN VISIT : Patient instructed to return in a few months. Electronically Signed by: Lino Henderson MD on Thursday, September 01, 2005 Electronically Signed by: Bobby Choe MD on Tuesday, September 13, 2005 * [employer] Transcriptions - 04/11/2008 4:48 PM CDT TIME:01:52 pm PATIENT`S HOME PHONE: PATIENT`S WORK PHONE: PATIENT`S INSURANCE: [facility] WHO TOOK THE CALL: Ciera Kim J GENERAL INFORMATION PATIENT STATUS: Established Patient. PCP: ebony. ALTERNATIVE PHONE NUMBER: [phone] WHO CALLED: Patient`s spouse called. SECTION 1: REQUESTED ACTION marnie 09/01/05 at 01:53 pm: SPECIALTY REFERRAL: DERMATOLOGY Dr. Bethel Joy ph: [phone] fax: [phone]. [address] Appoint on September 08 Medicare complete dx: Skin screening FINAL ACTION: elen 09/01/05 at 02:09 pm ADDITIONAL COMMENTS: referral done and faxed to dr joy's office Electronically Signed by: Lynsey Barber on Thursday, September 01, 2005 documented in this encounter Plan of Treatment Not on file documented as of this encounter Visit Diagnoses Not on filedocumented in this encounter Care Teams Ancillary Services Manager Therapy Relationship Specialty Start Date End Date Lino Sarah MD NO ADDRESS ON FILE PCP - General 11/29/07 documented as of this encounter
--- OUTSIDE RECORDS SUMMARY | 2025-03-08 13:39 | XMS_ITS | Encounter Summary ---
Author Organization [facility] Address [address] [place] [address] Care Team Providers Care Bandage Winding Machine Operator Name Role Phone Lino Sarah MD Primary Care Provider Un available Encounter Details Date Type Department Care Team (Late st Contact Info) Description 02/06/2007 Outpatient Historical [facility] Internal Medicine [place] [address] 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
--- OUTSIDE RECORDS SUMMARY | 2025-03-08 13:39 | XMS_ITS | Encounter Summary ---
Author Organization [facility] Address [address] [place] [address] Care Team Providers Care Paper Rewinder Name Role Phone Lino Sarah MD Primary Care Provider Un available Encounter Details Date Type Department Care Team (Late st Contact Info) Description 07/02/2004 Outpatient Historical [facility] Internal Medicine [facility] [address] [place] [phone] [place] [address] [address] Social History Tobacco Use Types Packs/Day Years Used Date Smoking Tobacco: Never Assessed Sex and Gender Information Value Date Recorded Sex Assigned at Not on file 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
--- OUTSIDE RECORDS SUMMARY | 2025-03-08 13:39 | XMS_ITS | Encounter Summary ---
Author Organization [employer] Address [address] [place] [address] Care Team Providers Care Fiberglass Dowel Drawing Operator Name Role Phone Lino Sarah MD Primary Care Provider Un available Encounter Details Date Type Department Care Team (Late st Contact Info) Description 02/01/2007 Orders Only [facility] 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
--- OUTSIDE RECORDS SUMMARY | 2025-03-08 13:39 | XMS_ITS | Encounter Summary ---
Author Organization [facility] Address 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
--- OUTSIDE RECORDS SUMMARY | 2025-03-08 13:39 | XMS_ITS | Encounter Summary ---
Author Organization [facility] Address 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
--- OUTSIDE RECORDS SUMMARY | 2025-03-08 13:39 | XMS_ITS | Encounter Summary ---
Author Organization [facility] Address [address] [place] [address] Care Team Providers Care Pool Coordinator Name Role Phone Lino Sarah MD Primary Care Provider Un available Encounter Details Date Type Department Care Team (Latest Contact Info) Description 03/30/1999 Outpatient Historical [facility] Elvira Betancur MD [address] [place] [address] Dr WATSON [address] [place] [phone] Pure hypercholesterolemia (Primary Dx) Social History Tobacco Use Types Packs/Day Years Used Date Smoking Tobacco: Never Assessed Sex and Gender Information Value Date Recorded Sex Assigned at Not on file 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
--- OUTSIDE RECORDS SUMMARY | 2025-03-08 13:39 | XMS_ITS | Encounter Summary ---
Author Organization [employer] Address 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
--- OUTSIDE RECORDS SUMMARY | 2025-03-08 13:39 | XMS_ITS | Encounter Summary ---
Author Organization [facility] Address [address] [place] [address] Care Team Providers Care Clinical Staff Educator Name Role Phone Lino Sarah MD Primary Care Provider Un available Encounter Details Date Type Department Care Team (Late st Contact Info) Description 05/09/2007 Outpatient Historical [facility] Internal Medicine [place] [address] [facility] [address] [place] [phone] Lino Carrillo ms, MD Social History Tobacco Use Types Packs/Day Years Used Date Smoking Tobacco: Never Assessed Sex and Gender Information Value Date Recorded Sex Assigned at Not on file 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
--- OUTSIDE RECORDS SUMMARY | 2025-03-08 13:39 | XMS_ITS | Encounter Summary ---
Author Organization [facility] Address [address] [place] [address] Care Team Providers Care Service Transformer Repair Supervisor Name Role Phone Lino Sarah MD Primary Care Provider Un available Encounter Details Date Type Department Care Team (Late st Contact Info) Description 10/08/2005 Outpatient Historical [facility] Internal Medicine [place] [address] 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 Gender Identity Not on file Sexual Orientation Not on file documented as of this encounter Last Filed Vital Signs Vital Sign Reading Time Taken Comments Blood Pressure 136/82 10/08/2005 3:45 PM CDT Pulse 72 10/08/2005 3:45 PM CDT Temperature 36.4 C (97.6 F) 10/08/2005 3:45 PM CDT Respiratory Rate 18 10/08/2005 3:45 PM CDT Oxygen Saturation - - Inhaled Oxygen Concentration - - Weight 110.2 kg (243 lb) 10/08/2005 3:45 PM CDT Height 175.9 cm (5' 9.25) 10/08/2005 3:45 PM CD T Body Mass Index 35.63 10/08/2005 3:45 PM CDT documented in this encounter Plan of Treatment Not on file documented as of this encounter Visit Diagnoses Not on filedocumented in this encounter Care Teams Service Transformer Repair Supervisor Relationship Specialty Start Date End Date Lino Sarah MD NO ADDRESS ON FILE PCP - General 11/29/07 documented as of this encounter
--- OUTSIDE RECORDS SUMMARY | 2025-03-08 13:39 | XMS_ITS | Encounter Summary ---
Author Organization [facility] Address [address] [place] [address] Care Team Providers Care Manager Company Name Role Phone Lino Sarah MD Primary Care Provider Un available Encounter Details Date Type Department Care Team (Late st Contact Info) Description 11/25/2003 Outpatient Historical [facility] Internal Medicine [place] [address] [facility] [address] [place] [phone] Bobby Choe MD [address] [place] [address] Social History Tobacco Use Types Packs/Day Years Used Date Smoking Tobacco: Never Assessed Sex and Gender Information Value Date Recorded Sex Assigned at Not on file 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
--- OUTSIDE RECORDS SUMMARY | 2025-03-08 13:39 | XMS_ITS | Encounter Summary ---
Author Organization [employer] Address [address] [place] [address] Care Team Providers Care Visual Design Lead Name Role Phone Lino Sarah MD Primary Care Provider Un available Encounter Details Date Type Department Care Team (Late st Contact Info) Description 05/09/2007 Orders Only [facility] Di[facility] 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
--- OUTSIDE RECORDS SUMMARY | 2025-03-08 13:39 | XMS_ITS | Encounter Summary ---
Author Organization [employer] Address 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 Gender Identity Not on file Sexual Orientation Not on file documented as of this encounter Plan of Treatment Not on file documented as of this encounter Procedures Procedure Name Priority Date/Time Associated Diagnosis Comments POC GLUCOSE Routine 08/11/2006 7:33 AM DRAFTER COMMERCIAL documented in this encounter Results * (ABNORMAL) POC GLUCOSE (08/11/2006 7:33 AM DRAFTER COMMERCIAL) GLUCOSE POC 137(H) 65 - 99 mg/dL INTERFACE SYSTEM 08/11/2006 7:33 AM DRAFTER COMMERCIAL us Major Sarah MD POINT OF CARE TESTING Edited INTERFACE SYSTEM Refer to clinic/hospital department documented in this encounter Visit Diagnoses Diagnosis Diverticulosis of colon (without mention of hemorrhage)- Primary documented in this encounter Care Teams Reimbursement Analyst Relationship Specialty Start Date End Date Lino Sarah MD NO ADDRESS ON FILE PCP - General 5/28/08 documented as of this encounter
--- OUTSIDE RECORDS SUMMARY | 2025-03-08 13:39 | XMS_ITS | Encounter Summary ---
Author Organization [facility] Address [address] [place] [address] Care Team Providers Care Art Class Model Name Role Phone Lino Sarah MD Primary Care Provider Un available Encounter Details Date Type Department Care Team (Latest Contact Info) Description 11/20/2007 Outpatient Historical [facility] Internal Medicine [place] [address] 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 Gender Identity Not on file Sexual Orientation Not on file documented as of this encounter Plan of Treatment Not on file documented as of this encounter Procedures Procedure Name Priority Date/Time Associated Diagnosis Comments PSA MEDICARE SCREEN Routine 11/20/2007 1 0:37 AM CDT TSH Routine 11/20/2007 10:37 AM CDT HEMOGLOBIN A1C Routine 11/20/2007 10:37 AM CDT LIPID PANEL Routine 11/20/2007 10:37 AM CDT COMPREHENSIVE METABOLIC PANEL Routine 11/20/2007 10:37 AM CDT documented in this encounter Results * (ABNORMAL) LIPID PANEL (11/20/2007 10:37 AM CDT) HDL 53 40 - 59 mg/dL [facility] CHOLESTEROL 149 100 - 199 mg/dL [facility] CHOL/HDL RATIO 2.8 2.0 - 5.0 [facility] TRIGLYCERIDE 188(H) 10 - 149 mg/dL [facility] LDL CALCULATED 58 <=99 mg/dL [facility] LIPID PANEL COMMENT See Below [facility] Comment: The adult ATP and pediatric NCEP classifications for lipids are available on the [facility] Intranet at: [email or web address] school for boysKromatid/unity/sjmmclab.nsf Select: Lab Policies and Procedures,Current Select: Lipid Panel Interpretation Blood specimen (specimen) 11/20/2007 10:37 AM CDT 11/20/2007 12:28 PM CDT [place] [email or web address] CHEMISTRY ORDERABLES Edited Performing Organization Address City/[facility]/ZIP Co de Phone Number [facility] CLIA# [id number] [address] [place] [place] [address] * (ABNORMAL) HEMOGLOBIN A1C (11/20/2007 10:37 AM CDT) HEMOGLOBIN A1C 7.6(H) 4.1 - 6.1 % of Hgb [facility] GLUCOSE, MEAN BLOOD 193 mg/dL [facility] Blood specimen (specimen) 11/20/2007 10:37 AM CDT 11/20/2007 12:28 PM CDT [place] Saengsamran CHEMISTRY ORDERABLES Final Result [facility] CLIA# [id number] [address] [place] [address] * TSH (11/20/2007 10:37 AM CDT) TSH 2.07 0.27 - 4.20 uU/mL [facility] Blood specimen (specimen) 11/20/2007 10:37 AM CDT 11/20/2007 12:28 PM CDT [employer] Softwarefernanda AloompachiragTrenDemonrakesh CHEMISTRY ORDERABLES Edited [facility] CLIA# [id number] [address] [place] [address] * PSA MEDICARE SCREEN (11/20/2007 10:37 AM CDT) PSA, SCREEN 0.5 0.0 - 4.0 ng/mL [facility] Comment:Performed on [employer] System Blood specimen (specimen) 11/20/2007 10:37 AM CDT 11/20/2007 12:28 PM CDT [employer] Softwarefernanda DavisTrenDemonrakesh CHEMISTRY ORDERABLES COM Ed ited Performing Organization Address City/[facility]/ZIP Co de Phone Number [facility] CLIA# [id number] [address] [place] [address] * (ABNORMAL) COMPREHENSIVE METABOLIC PANEL (11/20/2007 10:37 AM CDT) CO2 22 22 - 30 mmol/L [facility] TOTAL PROTEIN 6.9 6.3 - 8.6 g/dL [facility] POTASSIUM 4.9 3.5 - 4.9 mmol/L [facility] GLUCOSE 150(H) 65 - 99 mg/dL [facility] AST 21 12 - 38 U/L [facility] BUN 17 6 - 20 mg/dL [facility] CALCIUM 10.6(H) 8.4 - 10.2 mg/dL [facility] CHLORIDE 106 96 - 108 mmol/L [facility] ALBUMIN 4.5 3.4 - 4.8 g/dL [facility] CREATININE 0.86 0.67 - 1.17 mg/dL [facility] SODIUM 139 135 - 145 mmol/L [facility] ALT 18 0 - 41 U/L [facility] ALKALINE PHOSPHATASE 69 40 - 129 U/L [facility] BILIRUBIN TOTAL 0.8 0.2 - 1.0 mg/dL [facility] GFR, >60 >=60 mL/min/1. 7 sq meter [facility] GFR >60 >=60 mL/min/1. 7 sq meter [facility] Comment: Modification of Diet in Renal Disease (MDRD) study formula. Estimated GFR rate interpretative information for both Americans and non- Americans is available on the [facility] Intranet at: [email or web address] school for boysKromatid/hoozin/sjmmclab.nsf Select: Lab Policies and Procedures Select: Reference Ranges - GFR Blood specimen (specimen) 11/20/2007 10:37 AM CDT 11/20/2007 12:28 PM CDT Lino Diaz CHEMISTRY ORDERABLES Edited [facility] CLIA# [id number] [address] [place] [address] documented in this encounter Visit Diagnoses Diagnosis Type II or unspecified type diabetes mellitus without mention of complication, uncontrolled documented in this encounter Care Teams Art Class Model Relationship Specialty Start Date End Date Lino Sarah MD NO ADDRESS ON FILE PCP - General 11/29/07 documented as of this encounter
--- OUTSIDE RECORDS SUMMARY | 2025-03-08 13:39 | XMS_ITS | Encounter Summary ---
Author Organization [facility] Address [address] [place] [address] Care Team Providers Care Locker Plant Attendant Name Role Phone Lino Sarah MD Primary Care Provider Un available Encounter Details Date Type Department Care Team (Late st Contact Info) Description 04/08/1998 Outpatient Historical [facility] Internal Medicine [place] [address] [facility] [address] [place] [phone] [place] [address] [place] [address] Social History Tobacco Use Types Packs/Day Years Used Date Smoking Tobacco: Never Assessed Sex and Gender Information Value Date Recorded Sex Assigned at Not on file 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
--- OUTSIDE RECORDS SUMMARY | 2025-03-08 13:39 | XMS_ITS | Encounter Summary ---
Author Organization [facility] Address [address] [place] [address] Care Team Providers Care Manager Legal Name Role Phone Lino Sarah MD Primary Care Provider Un available Encounter Details Date Type Department Care Team (Late st Contact Info) Description 07/26/2005 Orders Only [facility] 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
--- OUTSIDE RECORDS SUMMARY | 2025-03-08 13:39 | XMS_ITS | Encounter Summary ---
Author Organization [facility] Address [address] [place] [address] Care Team Providers Care Stained Glass Glazier Helper Name Role Phone Lino Sarah MD Primary Care Provider Un available Encounter Details Date Type Department Care Team (Late st Contact Info) Description 07/28/2001 Outpatient Historical [facility] Major Sarah MD [address] [place] [address] [place] [address] BENIGN NEOPLASM LG BOWEL (Primary Dx) Social History Tobacco Use Types Packs/Day Years Used Date Smoking Tobacco: Never Assessed Sex and Gender Information Value Date Recorded Sex Assigned at Not on file Legal Sex Male 3:27 AM CASE LINER Gender Identity Not on file Sexual Orientation Not on file documented as of this encounter Plan of Treatment Not on file documented as of this encounter Visit Diagnoses Diagnosis Benign neoplasm of colon- Primary documented in this encounter Care Teams Stained Glass Glazier Helper Relationship Specialty Start Date End Date Lino Sarah MD NO ADDRESS ON FILE PCP - General 11/29/07 documented as of this encounter
--- OUTSIDE RECORDS SUMMARY | 2025-03-08 13:39 | XMS_ITS | Encounter Summary ---
Author Organization [facility] Address [address] 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 The patient has gained weight. Patient is somewhat compliant with diet. The patient`s exercise is the same. The patient is not checking blood sugars out of office. The patient denies polyuria, polyphagia, polydipsia, change in vision, foot ulcerations, or hypoglycemic episodes. The patient is tolerating the medication. He did stop the Avandia on his own. 272.4-HYPERLIPIDEMIA The patient has gained weight. The patient is somewhat compliant with the low saturated fat diet. The patient`s exercise is the same. The patient is tolerating the medications. Labs will be obtained for this patient. 401.1-HYPERTENSION ESSENTIAL BENIGN The patient has gained weight. The patient is compliant with diet. The patient`s exercise has increased. The patient denies chest pain, shortness of breath, dyspnea on exertion, pedal edema, or headache. The patient is tolerating the medication. 414.00-CORONARY ARTERY DISEASE Patient states not having any chest pain. The patient denies dyspneaon exertion, orthopnea, pedal edema, palpitations, and paroxysmal nocturnal dyspnea. Currently the patient is off all medication. The patient is being seen by a ethics officer. 786.2-COUGH The patient's chronic cough has not changed. The patient denies chest pain, denies chills, denies fever, denies other pulmonary symptoms, denies significant sputum production. He says this has actually gone on for years and he just hasn't mentioned it to anyone. sometimes there will besome drainage but most of the time, the cough is dry. He denies shortness of breath. HISTORY OF PRESENT ILLNESS: LESION: Date of onset is uncertain. It is located on the left scalp. The lesion is papular, raised.No other symptoms noted. He says that he cut his hair real short and that is when his first noticed it. CURRENT MEDICATION LIST: NITROGLYCERIN SUBLINGUAL TABLET SUBLINGUAL 0.4 MG, PRN NIACIN ORAL TABLET 100 MG, 1 b.i.d. w/ meals CLOPIDOGREL BISULFATE ORAL TABLET 75 MG, 1 Every Day PLAVIX ORAL TABLET 75 MG, 1 Every Day VYTORIN ORAL TABLET 10-40 MG, 1 Every Day ISOSORBIDE MONONITRATE ORAL TABLET 24 HR 30 MG, 1 Every Day LISINOPRIL ORAL TABLET 20 MG, 1 Every Day NORVASC ORAL TABLET 10 MG, 1 Every Day TOPROL XL ORAL TABLET 24 HR 50 MG, 1 Every Day GLIPIZIDE XL ORAL TABLET 24 HR 10 MG, 1 Every Day CURRENT ALLERGY LIST: NKDA ROS: GENERAL: Normal activity and energy level, no change in appetite. No major weight gain or loss. No malaise, chills, fever, diaphoresis. ALLERGIC/IMMUNOLOGIC: HAS ALLERGIC RHINITIS. EYES: No vision changes or diplopia. ENT: See HISTORY OF PRESENT ILLNESS. ENDOCRINE: No heat or cold intolerance, no excessive thirst. CARDIAC: No chest pain, palpitations, orthopnea, dyspnea on exertion, or paroxysmal nocturnal dyspnea. RESPIRATORY: HAS A COUGH. SKIN/BREAST/CHEST: See HISTORY OF PRESENT ILLNESS. HEMATOLOGIC/LYMPHATIC: No anemia, easy bruising, bleeding or swollen nodes. : No dysuria or hematuria. GI: No abdominal pain, nausea, vomiting, diarrhea, constipation, melena, or hematochezia. NEUROLOGIC: No weakness, dizziness, loss of consciousness, transient ischemic symptoms, or seizures. MUSCULOSKELETAL: No muscle or joint pain, weakness, swelling or inflammation. No restriction of motion, no atrophy or backache. PSYCHIATRIC: No increased nervousness, mood changes or depression. Coping well. PAST MEDICAL HISTORY: MEDICAL: diabetes mellitus, hypertension, hyperlipidemia, Coronary artery disease, BPH, DJD shoulder, Fatigue SURGICAL: Coronary artery bypass graft. FAMILY HISTORY: FATHER: The father is . Illnesses: Heart disease. MOTHER: The mother is . No major illnesses are known. SOCIAL HISTORY: MARITAL HISTORY: , living with spouse. TOBACCO USE: Has no significant smoking history. ALCOHOL: Does not give any significant history of alcohol usage. PHYSICAL EXAMINATION: CONSTITUTIONAL: GENERAL APPEARANCE: Healthy appearing patient in no distress. EARS, NOSE, MOUTH AND THROAT: EXTERNAL/EARS AND NOSE: Overall appearance normal with no scars, lesions or masses. EARS: Tympanic membranes shiny without retraction. Canals unremarkable. Hearing grossly normal. NOSE (AND SINUS): No abnormality of the nose or sinuses is noted. ORAL: Inspection of gums, lips, palate, and [...] without masses. Bowel sounds active. MUSCULOSKELETAL EXAM: GAIT/STATION: Normal gait. EXTREMITIES: DIABETIC II FOOT EXAM: The patient`s diabetic foot exam is within normal limits. Negative for callous, ulcers, tinea pedis, onychomycosis, arterial insufficiency or neuropathy. ASSESSMENT/PLAN: 250.00-DM II CONTROLLED ASSESSMENT: Will not change medication, continue to monitor for complications. Will check laboratory to assess disease effect, for possible medication adjustment, to assess medication effect. LAB ORDERS: Order number: [id number] Test Ordered: COMPREHENSIVE METABOLIC PANEL & GFR 1112 Order number: [id number] Test Ordered: HEMOGLOBIN A1C 1814 Order number: [id number] Test Ordered: LIPID PANEL 1078 Order number: [id number] Test Ordered: TSH 1720 272.4-HYPERLIPIDEMIA ASSESSMENT: Will not change medication, continue to monitor for complications. A low cholesterol diet was encouraged. Weight loss was encouraged. Regular exercise was encouraged. The patient's thyroid status is being followed. 401.1-HYPERTENSION ESSENTIAL BENIGN ASSESSMENT: The blood pressure remains satisfactory. Will not change medication, continue to monitor for complications. The patient was encouraged to follow a low salt diet. Regular exercise was encouraged. 414.00-CORONARY ARTERY DISEASE ASSESSMENT: The patient's chest pain pattern remains stable. Will not change medication, continue to monitor for complications. 786.2-COUGH ASSESSMENT: The patient's chronic cough has not changed. Will change medication. I think this couldbe related to lisinopril. I will have him discontinue this and I have given him samples of benicar 20 mg daily to try. He will check his blood pressures at home and call with elevated or low readings. I will get a CXR also to further evaluate for any pulmonary disease. MEDICATIONS: LISINOPRIL ORAL TABLET 20 MG, 1 Every Day, 30 Dispensed, 3 Fills, 30 Duration/Days Supply, status: DISCONTINUED HISTORY, 02/06/2007. BENICAR ORAL TABLET 20 MG, 1 Every Day, 30 Dispensed, status: NEW PRESCRIPTION, 02/06/2007. LAB ORDERS: Order number: [id number] Test Ordered: XRAY CHEST (2 VIEWS) 709.9-SKIN LESION UNSPECIFIED ASSESSMENT: This appears to be a benign mole. He has seen Dr. Bishop in the past, he will schedule afollow up appointment with Dr. Bishop for further evaluation. HEALTH MAINTENANCE: DIABETIC FOOT EXAM: 02/2007 RETURN VISIT : Patient instructed to return in 3 months. Electronically Signed by: Lino Sarah MD on Tuesday, February 06, 2007 documented in this encounter Plan of Treatment Not on file documented as of this encounter Visit Diagnoses Not on filedocumented in this encounter Care Teams System Manager Relationship Specialty Start Date End Date Lino Sarah MD NO ADDRESS ON FILE PCP - General 11/29/07 documented as of this encounter
--- OUTSIDE RECORDS SUMMARY | 2025-03-08 13:39 | XMS_ITS | Encounter Summary ---
Author Organization [facility] Address [address] [place] [address] Care Team Providers Care Interior Wall Assembler Name Role Phone Lino Sarah MD Primary Care Provider Un available Encounter Details Date Type Department Care Team (Late st Contact Info) Description 08/17/2001 Outpatient Historical [facility] Internal Medicine [place] [address] [facility] [address] [place] [address] [place] [address] [address] Social History Tobacco Use Types Packs/Day Years Used Date Smoking Tobacco: Never Assessed Sex and Gender Information Value Date Recorded Sex Assigned at Not on file 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
--- OUTSIDE RECORDS SUMMARY | 2025-03-08 13:39 | XMS_ITS | Encounter Summary ---
Author Organization [facility] Address [address] [place] [address] Care Team Providers Care Insurance Case Manager Name Role Phone Lino Sarah MD Primary Care Provider Un available Encounter Details Date Type Department Care Team (Late st Contact Info) Description 07/20/2001 Outpatient Historical [facility] Internal Medicine [place] [address] [facility] [address] [place] [address] [place] [address] [place] [address] Social History Tobacco Use Types Packs/Day Years Used Date Smoking Tobacco: Never Assessed Sex and Gender Information Value Date Recorded Sex Assigned at Not on file 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
--- OUTSIDE RECORDS SUMMARY | 2025-03-08 13:39 | XMS_ITS | Encounter Summary ---
Author Organization [facility] Address [address] [facility] [address] [facility] Attn: Epic Prelude ADT [place] [address] Care Team Providers Care Academic Adviser Name Role Phone Lino Sarah MD Primary Care Provider Un available Encounter Details Date Type Department Care Team (Late st Contact Info) Description 11/04/1998 Outpatient Historical Elvira Treviño MD [address] [place] [address] Social History Tobacco Use Types Packs/Day Years Used Date Smoking Tobacco: Never Assessed Sex and Gender Information Value Date Recorded Sex Assigned at Not on file 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
--- OUTSIDE RECORDS SUMMARY | 2025-03-08 13:39 | XMS_ITS | Encounter Summary ---
Author Organization [employer] Address [address] [place] [address] Care Team Providers Care Post Anesthesia Room Nurse Name Role Phone Lino Sarah MD Primary Care Provider Un available Encounter Details Date Type Department Care Team (Late st Contact Info) Description 12/14/2006 Orders Only [facility] Di[facility] 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
--- OUTSIDE RECORDS SUMMARY | 2025-03-08 13:39 | XMS_ITS | Encounter Summary ---
Author Organization [facility] Address 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
--- OUTSIDE RECORDS SUMMARY | 2025-03-08 13:39 | XMS_ITS | Clinical Summary ---
Author Organization [employer] Address [address] [place] [address] Care Team Providers Care Meter Reader Chief Name Role Phone Lino Sarah MD Primary Care Provider Un available Medications TOPROL XL 50 MG 24 HR TAB 1 Every Day 30.00 3 7 Active PLAVIX 75 MG TAB 1 Every Day 30.00 3 7 Active aspirin, buffered (BUFFERIN) 325 mg Oral Tab 1 Every Day 100.00 0 7 Active BENICAR 20 mg Oral Tab 1 Every Day 30.00 3 7 Active VYTORIN 10/80 10-80 mg Oral Tab 1 Every Day 30.00 3 7 Active metformin (GLUCOPHAGE) 1,000 mg Oral Tab 1 Two Times A Day 60.00 4 8 Active amlodipine (NORVASC) 10 mg Oral Tab Take 1 Tab by mouth daily. 30.00 6 8 Active glipiZIDE SR 24 hour (GLUCOTROL XL) 10 mg Oral TO24 Take 1 Tab by mouth daily. 30.00 6 8 Active isosorbide mononitrate (IMDUR) 30 mg Oral Tb24 Take 1 Tab by mouth daily wireless architect. 30 6 8 Active blood sugar diagnostic (PRECISION XTRA TEST) Strp 1 Strip by See Admin Instructions route 2 times daily. 100 12 8 Active niacin (NIACOR) 100 mg Oral Tab Take 2 Tabs by mouth 2 times daily with meals. 120 Tab 3 8 Active Active Problems Problem Noted Date Diagnosed Date Special screening for malignant neoplasm of pros tyson 11/20/2007 Other and unspecified angina pectoris 10/10/2007 Allergic rhinitis due to other allergen 06/15/20 07 Need for prophylactic vaccin ation against Streptococcus pneumoniae (pneumococcus) 05/12/2007 Cough 02/06/2007 Unspecified disorder of skin and subcutaneous ti ssue 02/06/2007 Type II or unspecified type diabetes mellitus without mention of complication, not stated as uncontrolled 2006 Impacted cerumen 12/08/2005 Abdominal pain, epigastric 10/27/2004 Hypertrophy of prostate with out urinary obstruction and other lower urinary tract symptoms (LUTS) 07/30/2004 Coronary atherosclerosis of unspecified type of vessel, k[place] or graft 07/30/2004 Other and unspecified hyperlipidemia 07/30/2004 Essential hypertension, benign 07/30/2004 Osteoarthrosis, unspecified whether generalized or localized, shoulder region 07/30/2004 Other malaise and fatigue 07/02/2004 Type II or unspecified type diabetes mellitus without mention of complication, uncontrolled 07/02/2004 Immunizations Immunization Administration Dates Next Due Influenza Vaccine Split 3+ Yrs IM 07/20/2001 Social History Tobacco Use Types Packs/Day Years Used Date Smoking Tobacco: Never Assessed Sex and Gender Information Value Date Recorded Sex Assigned at Not on file Legal Sex Male 3:27 AM DIRECTOR PART Gender Identity Not on file Sexual Orientation Not on file Last Filed Vital Signs Vital Sign Reading Time Taken Comments Blood Pressure 120/84 06/15/2007 9:45 AM DIRECTOR PART Pulse 72 06/15/2007 9:45 AM DIRECTOR PART Temperature 36.4 C (97.5 F) 06/15/2007 9:45 AM DIRECTOR PART Respiratory Rate 18 06/15/2007 9:45 AM DIRECTOR PART Oxygen Saturation - - Inhaled Oxygen Concentration - - Weight 112.9 kg (249 lb) 06/15/2007 9:45 AM DIRECTOR PART Height 177.8 cm (5' 10) 06/15/2007 9:45 AM DIRECTOR PART Body Mass Index 35.73 06/15/2007 9:45 AM DIRECTOR PART Plan of Treatment Health Maintenance Due Date Last Done Comments DTAP/TDAP/TD VACCINES (1 - Tdap) 1962 PNEUMOCOCCAL VACCINE 50+ YEARS (1 of 1 - PCV) 04/18/19 93 ZOSTER VACCINE (1 of 2) 1993 RSV VACCINE (60+ or ) (1 - 1-dose 75+ series) 2018 INFLUENZA VACCINE (#1) 2025 07/20/2001 Care Teams Meter Reader Chief Relationship Specialty Start Date End Date Lino Sarah MD NO ADDRESS ON FILE PCP - General 11/29/07
--- OUTSIDE RECORDS SUMMARY | 2025-03-08 13:39 | XMS_ITS | Encounter Summary ---
Author Organization [facility] Address [address] [place] [address] Care Team Providers Care Gear Hobber Set Up Operator Name Role Phone Lino Sarah MD Primary Care Provider Un available Encounter Details Date Type Department Care Team (Late st Contact Info) Description 06/15/2007 Outpatient Historical [facility] Internal Medicine [place] [address] [address] [facility] [address] [place] [phone] Lino Carrillo ms, MD Social History Tobacco Use Types Packs/Day Years Used Date Smoking Tobacco: Never Assessed Sex and Gender Information Value Date Recorded Sex Assigned at Not on file Legal Sex Male 3:27 AM EDUCATION TRAINER Gender Identity Not on file Sexual Orientation Not on file documented as of this encounter Plan of Treatment Not on file documented as of this encounter Visit Diagnoses Not on filedocumented in this encounter Care Teams Gear Hobber Set Up Operator Relationship Specialty Start Date End Date Lino Sarah MD NO ADDRESS ON FILE PCP - General 11/29/07 documented as of this encounter
--- OUTSIDE RECORDS SUMMARY | 2025-03-08 13:39 | XMS_ITS | Encounter Summary ---
Author Organization [employer] Address [address] [place] [address] Care Team Providers Care Photo Manager Name Role Phone Lino Sarah MD Primary Care Provider Un available Encounter Details Date Type Department Care Team (Latest Contact Info) Description 07/10/2004 Outpatient Historical [facility] [address] Kaz Darnell MD [address] [place] [phone] HYPERCALCEMIA (Primary Dx) Social History Tobacco Use Types Packs/Day Years Used Date Smoking Tobacco: Never Assessed Sex and Gender Information Value Date Recorded Sex Assigned at Not on file Legal Sex Male 3:27 AM SINTERING PRESS OPERATOR Gender Identity Not on file Sexual Orientation Not on file documented as of this encounter Plan of Treatment Not on file documented as of this encounter Procedures Procedure Name Priority Date/Time Associated Diagnosis Comments PHOSPHORUS Routine 07/10/2004 12:13 PM SINTERING PRESS OPERATOR PTH INTACT Routine 07/10/2004 12:13 PM SINTERING PRESS OPERATOR CALCIUM IONIZED Routine 07/10/2004 12:13 PM SINTERING PRESS OPERATOR documented in this encounter Results * (ABNORMAL) CALCIUM IONIZED (07/10/2004 12:13 PM SINTERING PRESS OPERATOR) CALCIUM IONIZED 5.44(H) 4.76 - 5.16 mg/dL INTERFACE SYSTEM 07/10/2004 12:1 3 PM SINTERING PRESS OPERATOR us Kaz Darnell MD CHEMISTRY ORDERABLES Final Resu lt INTERFACE SYSTEM Refer to clinic/hospital department * (ABNORMAL) PTH INTACT (07/10/2004 12:13 PM SINTERING PRESS OPERATOR) CALCIUM 10.6(H) 8.6 - 10.2 mg/dL INTERFACE SYSTEM PTH INTACT 114(H) 15 - 65 pg/mL INTERFACE SYSTEM 07/10/2004 12:1 3 PM SINTERING PRESS OPERATOR Kaz Darnell MD CHEMISTRY ORDERABLES Final Resu Performing Organization Address [facility] Phone Number INTERFACE SYSTEM Refer to clinic/hospital department * PHOSPHORUS (07/10/2004 12:13 PM SINTERING PRESS OPERATOR) PHOSPHORUS 2.5 2.5 - 4.5 mg/dL INTERFACE SYSTEM 07/10/2004 12:1 3 PM SINTERING PRESS OPERATOR us Kaz Darnell MD CHEMISTRY ORDERABLES Final Resu Performing Organization Address [facility] Phone Number INTERFACE SYSTEM Refer to clinic/hospital department documented in this encounter Visit Diagnoses Diagnosis Hypercalcemia- Primary documented in this encounter Care Teams Photo Manager Relationship Specialty Start Date End Date Lino Sarah MD NO ADDRESS ON FILE PCP - General 11/29/07 documented as of this encounter
--- OUTSIDE RECORDS SUMMARY | 2025-03-08 13:39 | XMS_ITS | Encounter Summary ---
Author Organization [employer] Address [address] [place] [address] Care Team Providers Care Financial Agent Name Role Phone Lino Sarah MD Primary Care Provider Un available Encounter Details Date Type Department Care Team (Late st Contact Info) Description 09/01/2005 Outpatient Historical [facility] Lino Salgado DIABETES MELLITUS TYPE II UNCONTR UNCOMPL (Primary Dx) Social History Tobacco Use Types Packs/Day Years Used Date Smoking Tobacco: Never Assessed Sex and Gender Information Value Date Recorded Sex Assigned at Not on file Legal Sex Male 3:27 AM MANUFACTURING STOREPERSON Gender Identity Not on file Sexual Orientation Not on file documented as of this encounter Plan of Treatment Not on file documented as of this encounter Procedures Procedure Name Priority Date/Time Associated Diagnosis Comments PSA MEDICARE SCREEN Routine 09/01/2005 1 0:11 AM MANUFACTURING STOREPERSON TSH Routine 09/01/2005 10:11 AM MANUFACTURING STOREPERSON HEMOGLOBIN A1C Routine 09/01/2005 10:11 AM MANUFACTURING STOREPERSON LIPID PANEL Routine 09/01/2005 10:11 AM MANUFACTURING STOREPERSON COMPREHENSIVE METABOLIC PANEL Routine 09/01/2005 10:11 AM MANUFACTURING STOREPERSON documented in this encounter Results * TSH (09/01/2005 10:11 AM MANUFACTURING STOREPERSON) TSH 2.10 0.27 - 4.20 uU/mL INTERFACE SYSTEM 09/01/2005 10:1 1 AM MANUFACTURING STOREPERSON us Lino Sarah MD CHEMISTRY ORDERABLES Kimberly l Result INTERFACE SYSTEM Refer to clinic/hospital department * (ABNORMAL) LIPID PANEL (09/01/2005 10:11 AM MANUFACTURING STOREPERSON) LIPID PANEL COMMENT See below INTERFACE SYSTEM Comment: Adult ATP III Classifications: Cholesterol (mg/dL) Triglyceride (mg/dL) Desirable <200 Normal <150 Borderline 200 - 239 Borderline High 150 - 199 High >=240 High 200 - 499 Very High >=500 HDL Cholesterol (mg/dL) LDL (mg/dL) Low (increased risk) <40 Optimal <100 High (reduced risk) >=60 Near or above optimal 100 - 129 Borderline 130 - 159 High 160 - 189 Very High >=190 LDL calculation is not accurate if Triglycerides are greater than 400 mg /dL Pediatric NCEP Classifications: Cholesterol(<20 years),(mg/dL) Triglyceride Desirable <170 Pediatric classification Borderline 170 - 199 not defined. High >=200 HDL (<5 years) LDL (mg/dL) No Reference Range Established Desirable <110 Borderline 110 - 129 High >=130 CHOLESTEROL 216(H) 100 - 199 mg/dL INTERFACE SYSTEM TRIGLYCERIDE 274(H) 10 - 149 mg/dL INTERFACE SYSTEM HDL 51 40 - 59 mg/dL INTERFACE SYSTEM LDL CALCULATED 110(H) <=99 mg/dL INTERFACE SYSTEM CHOL/HDL RATIO 4.2 2.0 - 5.0 INTER FACE SYSTEM Comment:See interpretive tammy a section for risk classifications. 09/01/2005 10:1 1 AM MANUFACTURING STOREPERSON us Lino Sarah MD CHEMISTRY ORDERABLES Kimberly l Result INTERFACE SYSTEM Refer to clinic/hospital department * PSA MEDICARE SCREEN (09/01/2005 10:11 AM MANUFACTURING STOREPERSON) PSA, SCREEN 0.4 0.0 - 4.0 ng/mL INTERFACE SYSTEM Comment:Performed on [employer] System 09/01/2005 10:1 1 AM MANUFACTURING STOREPERSON us Lino Sarah MD CHEMISTRY ORDERABLES COM Final Result Performing Organization Address [facility] Phone Number INTERFACE SYSTEM Refer to clinic/hospital department * (ABNORMAL) HEMOGLOBIN A1C (09/01/2005 10:11 AM MANUFACTURING STOREPERSON) HEMOGLOBIN A1C 10.1(H) 3.9 - 6.1 % of Hgb INTERFACE SYSTEM GLUCOSE, MEAN BLOOD 250 mg/dL INTERFACE SYSTEM 09/01/2005 10:1 1 AM MANUFACTURING STOREPERSON us Lino Sarah MD CHEMISTRY ORDERABLES Kimberly l Result Performing Organization Address [facility] Phone Number INTERFACE SYSTEM Refer to clinic/hospital department * (ABNORMAL) COMPREHENSIVE METABOLIC PANEL (09/01/2005 10:11 AM MANUFACTURING STOREPERSON) GLUCOSE 256(H) 65 - 109 mg/dL INTERFACE SYSTEM CREATININE 1.0 0.5 - 1.3 mg/dL INTERFACE SYSTEM AST 29 12 - 38 U/L INTERFACE SYSTEM ALKALINE PHOSPHATASE 77 40 - 129 U/L INTERFACE SYSTEM BILIRUBIN TOTAL 0.6 0.2 - 1.0 mg/dL INTERFACE SYSTEM ALBUMIN 4.4 3.4 - 4.8 g/dL INTERFACE SYSTEM TOTAL PROTEIN 7.1 6.3 - 8.6 g/dL INTERFACE SYSTEM ALT 26 0 - 41 U/L INTERFACE SYSTEM BUN 23(H) 6 - 20 mg/dL INTERFACE SYSTEM SODIUM 136 135 - 145 mmol/L INTERFACE SYSTEM POTASSIUM 4.9 3.5 - 4.9 mmol/L INTERFACE SYSTEM CHLORIDE 103 96 - 108 mmol/L INTERFACE SYSTEM CO2 24 22 - 30 mmol/L INTERFACE SYSTEM CALCIUM 10.6(H) 8.6 - 10.2 mg/dL INTERFACE SYSTEM Comment:Verified by repeat a nalysis. 09/01/2005 10:1 1 AM MANUFACTURING STOREPERSON us Lino Sarah MD CHEMISTRY ORDERABLES Kimberly l Result Performing Organization Address [facility] Phone Number INTERFACE SYSTEM Refer to clinic/hospital department documented in this encounter Visit Diagnoses Diagnosis Type II or unspecified type diabetes mellitus without mention of complication, uncontrolled- Primary documented in this encounter Care Teams Financial Agent Relationship Specialty Start Date End Date Lino Sarah MD NO ADDRESS ON FILE PCP - General 11/29/07 documented as of this encounter
--- OUTSIDE RECORDS SUMMARY | 2025-03-08 13:39 | XMS_ITS | Encounter Summary ---
Author Organization [facility] Address [address] [place] [address] Care Team Providers Care Nurse Examiner Name Role Phone Lino Sarah MD Primary Care Provider Un available Encounter Details Date Type Department Care Team (Late st Contact Info) Description 07/18/2003 Outpatient Historical [facility] Internal Medicine [place]o [address] [address] [place] [phone] [place] [address] [place] [address] Social History Tobacco Use Types Packs/Day Years Used Date Smoking Tobacco: Never Assessed Sex and Gender Information Value Date Recorded Sex Assigned at Not on file Legal Sex Male 3:27 AM MANAGER LAW Gender Identity Not on file Sexual Orientation Not on file documented as of this encounter Plan of Treatment Not on file documented as of this encounter Visit Diagnoses Not on filedocumented in this encounter Care Teams Nurse Examiner Relationship Specialty Start Date End Date Lino Sarah MD NO ADDRESS ON FILE PCP - General 11/29/07 documented as of this encounter
--- OUTSIDE RECORDS SUMMARY | 2025-03-08 13:39 | XMS_ITS | Encounter Summary ---
Author Organization [facility] Address [address] [place] [address] Care Team Providers Care Insurance Claims Processor Name Role Phone Lino Sarah MD Primary Care Provider Un available Encounter Details Date Type Department Care Team (Late st Contact Info) Description 08/27/1998 Outpatient Historical [facility] Internal Medicine [place] [address] [address] [address] [place] [phone] [place] [address] [place] [address] Social History Tobacco Use Types Packs/Day Years Used Date Smoking Tobacco: Never Assessed Sex and Gender Information Value Date Recorded Sex Assigned at Not on file Legal Sex Male 3:27 AM WINK CUTTER OPERATOR Gender Identity Not on file Sexual Orientation Not on file documented as of this encounter Plan of Treatment Not on file documented as of this encounter Visit Diagnoses Not on filedocumented in this encounter Care Teams Insurance Claims Processor Relationship Specialty Start Date End Date Lino Sarah MD NO ADDRESS ON FILE PCP - General 11/29/07 documented as of this encounter
--- OUTSIDE RECORDS SUMMARY | 2025-03-08 13:39 | XMS_ITS | Encounter Summary ---
Author Organization [facility] Address [address] [place] [address] Care Team Providers Care Primary Care Sales Representative Name Role Phone Lino Sarah MD Primary Care Provider Un available Encounter Details Date Type Department Care Team (Late st Contact Info) Description 10/28/1998 Outpatient Historical [facility] Internal Medicine [place] [address] [address] [place] [phone] [place] [address] [place] [address] Social History Tobacco Use Types Packs/Day Years Used Date Smoking Tobacco: Never Assessed Sex and Gender Information Value Date Recorded Sex Assigned at Not on file Legal Sex Male 3:27 AM ROCK WOOL INSULATOR Gender Identity Not on file Sexual Orientation Not on file documented as of this encounter Plan of Treatment Not on file documented as of this encounter Visit Diagnoses Not on filedocumented in this encounter Care Teams Primary Care Sales Representative Relationship Specialty Start Date End Date Lino Sarah MD NO ADDRESS ON FILE PCP - General 11/29/07 documented as of this encounter
--- OUTSIDE RECORDS SUMMARY | 2025-03-08 13:39 | XMS_ITS | Encounter Summary ---
Author Organization [facility] Address [address] [facility] [place] [address] Care Team Providers Care Upset Welding Machine Operator Name Role Phone Lino Sarah MD Primary Care Provider Un available Encounter Details Date Type Department Care Team (Late st Contact Info) Description 02/06/2007 Outpatient Historical [facility] Internal Medicine [place] [address] [address] [place] [phone] MargothsaLino aviles Cough (Primary Dx) Social History Tobacco Use Types Packs/Day Years Used Date Smoking Tobacco: Never Assessed Sex and Gender Information Value Date Recorded Sex Assigned at Not on file Legal Sex Male 3:27 AM SAP BASIS ADMINISTRATOR Gender Identity Not on file Sexual Orientation Not on file documented as of this encounter Last Filed Vital Signs Vital Sign Reading Time Taken Comments Blood Pressure - - Pulse - - Temperature 35.6 C (96 F) 02/06/2007 9:30 AM CDT Respiratory Rate - - Oxygen Saturation - - Inhaled Oxygen Concentration - - Weight - - Height - - Body Mass Index - - documented in this encounter Plan of Treatment Not on file documented as of this encounter Procedures Procedure Name Priority Date/Time Associated Diagnosis Comments TSH Routine 02/06/2007 9:55 AM CDT HEMOGLOBIN A1C Routine 02/06/2007 9:55 AM CDT LIPID PANEL Routine 02/06/2007 9:55 AM CDT COMPREHENSIVE METABOLIC PANEL Routine 02/06/2007 9:55 AM CDT documented in this encounter Results * (ABNORMAL) HEMOGLOBIN A1C (02/06/2007 9:55 AM CDT) HEMOGLOBIN A1C 8.5(H) 4.1 - 6.1 % of Hgb INTERFACE SYSTEM GLUCOSE, MEAN BLOOD 225 mg/dL INTERFACE SYSTEM 02/06/2007 9:55 AM CDT [employer] Systemsfernanda DavisRT Brokerage Servicesrakesh CHEMISTRY ORDERABLES Edited Performing Organization Address City/State/[facility] Co de Phone Number INTERFACE SYSTEM Refer to clinic/hospital department * TSH (02/06/2007 9:55 AM CDT) TSH 2.22 0.27 - 4.20 uU/mL INTERFACE SYSTEM 02/06/2007 9:55 AM CDT [facility] Lirangsarakesh CHEMISTRY ORDERABLES Edited Performing Organization Address [facility] Co de Phone Number INTERFACE SYSTEM Refer to clinic/hospital department * (ABNORMAL) COMPREHENSIVE METABOLIC PANEL (02/06/2007 9:55 AM CDT) GLUCOSE 213(H) 65 - 99 mg/dL INTERFACE SYSTEM CREATININE 0.93 0.67 - 1.17 mg/dL INTERFACE SYSTEM ALKALINE PHOSPHATASE 74 40 - 129 U/L INTERFACE SYSTEM AST 24 12 - 38 U/L INTERFACE SYSTEM ALT 18 0 - 41 U/L INTERFACE SYSTEM TOTAL PROTEIN 6.9 6.3 - 8.6 g/dL INTERFACE SYSTEM ALBUMIN 4.4 3.4 - 4.8 g/dL INTERFACE SYSTEM BILIRUBIN TOTAL 0.6 0.2 - 1.0 mg/dL INTERFACE SYSTEM BUN 21(H) 6 - 20 mg/dL INTERFACE SYSTEM SODIUM 137 135 - 145 mmol/L INTERFACE SYSTEM POTASSIUM 4.8 3.5 - 4.9 mmol/L INTERFACE SYSTEM CHLORIDE 104 96 - 108 mmol/L INTERFACE SYSTEM CO2 23 22 - 30 mmol/L INTERFACE SYSTEM GFR, >60 >=60 mL/min/1. 7 sq meter INTERFACE SYSTEM GFR >60 >=60 mL/min/1. 7 sq meter INTERFACE SYSTEM Comment: Estimated GFR rate interpretative information for both Americans and non- Americans is available on the [facility] Intranet at: [email or web address] Select: Lab Policies and Procedures Select: Reference Ranges - GFR CALCIUM 10.6(H) 8.4 - 10.2 mg/dL INTERFACE SYSTEM Comment:Verified by repeat a nalysis. 02/06/2007 9:55 AM CDT Kalliebrindafernanda Diaz CHEMISTRY ORDERABLES Edited Performing Organization Address [facility] Phone Number INTERFACE SYSTEM Refer to clinic/hospital department * (ABNORMAL) LIPID PANEL (02/06/2007 9:55 AM CDT) CHOLESTEROL 223(H) 100 - 199 mg/dL INTERFACE SYSTEM TRIGLYCERIDE 261(H) 10 - 149 mg/dL INTERFACE SYSTEM HDL 46 40 - 59 mg/dL INTERFACE SYSTEM LDL CALCULATED 125(H) <=99 mg/dL INTERFACE SYSTEM CHOL/HDL RATIO 4.8 2.0 - 5.0 INTER FACE SYSTEM LIPID PANEL COMMENT See Below INTERFACE SYSTEM Comment: The adult ATP and pediatric NCEP classifications for lipids are available on the [facility] Intranet at: [email or web address] Select: Lab Policies and Procedures Select: Reference Ranges - Lipids 02/06/2007 9:55 AM CDT us Lino Diaz CHEMISTRY ORDERABLES Edited Performing Organization Address City/[facility] de Phone Number INTERFACE SYSTEM Refer to clinic/hospital department documented in this encounter Visit Diagnoses Diagnosis Cough- Primary documented in this encounter Care Teams Upset Welding Machine Operator Relationship Specialty Start Date End Date Lino Sarah MD NO ADDRESS ON FILE PCP - General 11/29/07 documented as of this encounter
--- OUTSIDE RECORDS SUMMARY | 2025-03-08 13:39 | XMS_ITS | Encounter Summary ---
Author Organization [email or web address] Address [address] [place] [address] Care Team Providers Care Hospice Registered Nurse Name Role Phone Lino Sarah MD Primary Care Provider Un available Encounter Details Date Type Department Care Team (Late st Contact Info) Description 07/02/2004 Outpatient Historical [facility], [address] Kaz Darnell MD [address] [place] [phone] DIABETES MELLITUS TYPE II-UNCOMPL ([facility]) (Primary Dx) Social History Tobacco Use Types Packs/Day Years Used Date Smoking Tobacco: Never Assessed Sex and Gender Information Value Date Recorded Sex Assigned at Not on file Legal Sex Male 3:27 AM ELEVATOR SERVICEMAN Gender Identity Not on file Sexual Orientation Not on file documented as of this encounter Plan of Treatment Not on file documented as of this encounter Visit Diagnoses Diagnosis Type II or unspecified type diabetes mellitus without mention of complication, not stated as uncontrolled- Primary documented in this encounter Care Teams Hospice Registered Nurse Relationship Specialty Start Date End Date Lino Sarah MD NO ADDRESS ON FILE PCP - General 11/29/07 documented as of this encounter
--- OUTSIDE RECORDS SUMMARY | 2025-03-08 13:39 | XMS_ITS | Encounter Summary ---
Author Organization [facility] Address [address] [place] [address] Care Team Providers Care High School Coach Name Role Phone Lino Sarah MD Primary Care Provider Un available Encounter Details Date Type Department Care Team (Late st Contact Info) Description 01/13/2004 Outpatient Historical [facility] Internal Medicine [facility] [address] [address] [facility] [address] [place] [phone] [place] [address] [phone] Social History Tobacco Use Types Packs/Day Years Used Date Smoking Tobacco: Never Assessed Sex and Gender Information Value Date Recorded Sex Assigned at Not on file Legal Sex Male 3:27 AM LAYOUT TECHNICIAN Gender Identity Not on file Sexual Orientation Not on file documented as of this encounter Plan of Treatment Not on file documented as of this encounter Visit Diagnoses Not on filedocumented in this encounter Care Teams High School Coach Relationship Specialty Start Date End Date Lino Sarah MD NO ADDRESS ON FILE PCP - General 11/29/07 documented as of this encounter
--- OUTSIDE RECORDS SUMMARY | 2025-03-08 13:39 | XMS_ITS | Encounter Summary ---
Author Organization [facility] Address [address] [place] [address] Care Team Providers Care Basket Hand Weaver Name Role Phone Lino Sarah MD Primary Care Provider Un available Encounter Details Date Type Department Care Team (Late st Contact Info) Description 07/11/2007 Orders Only [facility] [address] [place] [address] Bobby Choe MD [address] [place] [address] Social History Tobacco Use Types Packs/Day Years Used Date Smoking Tobacco: Never Assessed Sex and Gender Information Value Date Recorded Sex Assigned at Not on file Legal Sex Male 3:27 AM CLINICIAN ONCOLOGY Gender Identity Not on file Sexual Orientation Not on file documented as of this encounter Plan of Treatment Not on file documented as of this encounter Visit Diagnoses Not on filedocumented in this encounter Care Teams Basket Hand Weaver Relationship Specialty Start Date End Date iLno Sarah MD NO ADDRESS ON FILE PCP - General 11/29/07 documented as of this encounter
--- OUTSIDE RECORDS SUMMARY | 2025-03-08 13:39 | XMS_ITS | Encounter Summary ---
Author Organization [email or web address] Address [address] [place] [address] Care Team Providers Care Tile Inspector Name Role Phone Lino Sarah MD Primary Care Provider Un available Encounter Details Date Type Department Care Team (Late st Contact Info) Description 10/13/2006 Orders Only [facility] [address] [place] [address] Bobby Choe MD [address] [place] [address] Social History Tobacco Use Types Packs/Day Years Used Date Smoking Tobacco: Never Assessed Sex and Gender Information Value Date Recorded Sex Assigned at Not on file Legal Sex Male 3:27 AM RUBBER AND PLASTICS WORKER Gender Identity Not on file Sexual Orientation Not on file documented as of this encounter Plan of Treatment Not on file documented as of this encounter Visit Diagnoses Not on filedocumented in this encounter Care Teams Tile Inspector Relationship Specialty Start Date End Date Lino Sarah MD NO ADDRESS ON FILE PCP - General 11/29/07 documented as of this encounter
--- OUTSIDE RECORDS SUMMARY | 2025-03-08 13:39 | XMS_ITS | Encounter Summary ---
Author Organization [employer] Address 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
--- OUTSIDE RECORDS SUMMARY | 2025-03-08 13:39 | XMS_ITS | Encounter Summary ---
Author Organization [facility] Address [address] [place] [address] Care Team Providers Care Teletype Or Varitype Keyboard Operator Name Role Phone Lino Sarah MD Primary Care Provider Un available Encounter Details Date Type Department Care Team (Late st Contact Info) Description 03/24/2007 Orders Only [facility] 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
--- OUTSIDE RECORDS SUMMARY | 2025-03-08 13:39 | XMS_ITS | Encounter Summary ---
Author Organization [employer] Address 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
--- OUTSIDE RECORDS SUMMARY | 2025-03-08 13:39 | XMS_ITS | Encounter Summary ---
Author Organization [facility] Address [address] [place] [address] Care Team Providers Care Physician Asst Name Role Phone Lino Sarah MD Primary Care Provider Un available Encounter Details Date Type Department Care Team (Late st Contact Info) Description 09/01/2005 Outpatient Historical [facility] Internal Medicine Dara Gallego [address] [facility] [address] [place] [phone] Bobby Choe MD [address] [place] [address] Social History Tobacco Use Types Packs/Day Years Used Date Smoking Tobacco: Never Assessed Sex and Gender Information Value Date Recorded Sex Assigned at Not on file Legal Sex Male 3:27 AM PASTRY SUPERVISOR Gender Identity Not on file Sexual Orientation Not on file documented as of this encounter Last Filed Vital Signs Vital Sign Reading Time Taken Comments Blood Pressure 100/80 09/01/2005 9:00 AM PASTRY SUPERVISOR Pulse 76 09/01/2005 9:00 AM PASTRY SUPERVISOR Temperature 35.6 C (96.1 F) 09/01/2005 9:00 AM PASTRY SUPERVISOR Respiratory Rate 18 09/01/2005 9:00 AM PASTRY SUPERVISOR Oxygen Saturation - - Inhaled Oxygen Concentration - - Weight 113.9 kg (251 lb) 09/01/2005 9:00 AM PASTRY SUPERVISOR Height 177.8 cm (5' 10) 09/01/2005 9:00 AM PASTRY SUPERVISOR Body Mass Index 36.01 09/01/2005 9:00 AM PASTRY SUPERVISOR documented in this encounter Plan of Treatment Not on file documented as of this encounter Visit Diagnoses Not on filedocumented in this encounter Care Teams Physician Asst Relationship Specialty Start Date End Date Lino Sarah MD NO ADDRESS ON FILE PCP - General 11/29/07 documented as of this encounter
--- OUTSIDE RECORDS SUMMARY | 2025-03-08 13:39 | XMS_ITS | Encounter Summary ---
Author Organization [facility] Address [address] [place] [address] Care Team Providers Care Corporate Quality Manager Name Role Phone Lino Sarah MD Primary Care Provider Un available Encounter Details Date Type Department Care Team (Late st Contact Info) Description 07/20/2001 Outpatient Historical [facility] Internal Medicine [place] [address] [facility] [address] [place] [phone] [place] [address] [place] [address] Social History Tobacco Use Types Packs/Day Years Used Date Smoking Tobacco: Never Assessed Sex and Gender Information Value Date Recorded Sex Assigned at Not on file 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
--- OUTSIDE RECORDS SUMMARY | 2025-03-08 13:39 | XMS_ITS | Encounter Summary ---
Author Organization [facility] Address [address] [place] [address] Care Team Providers Care Compound Worker Name Role Phone Lino Sarah MD Primary Care Provider Un available Encounter Details Date Type Department Care Team (Late st Contact Info) Description 12/08/2005 Outpatient Historical [facility] Internal Medicine [place] [address] [facility] [address] [place] [phone] Bobby Choe MD [address] [place] [address] Social History Tobacco Use Types Packs/Day Years Used Date Smoking Tobacco: Never Assessed Sex and Gender Information Value Date Recorded Sex Assigned at Not on file 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
--- OUTSIDE RECORDS SUMMARY | 2025-03-08 13:39 | XMS_ITS | Encounter Summary ---
Author Organization [facility] Address [address] [place] [address] Care Team Providers Care Contract Runner Name Role Phone Lino Sarah MD Primary Care Provider Un available Encounter Details Date Type Department Care Team (Latest Contact Info) Description 05/09/2007 Outpatient Historical [facility] Internal Medicine [place] [address] [facility] [address] [place] [address] Lino Diaz DM w/o Complication Type II, Uncontrolled (Primary Dx) Social History Tobacco Use Types Packs/Day Years Used Date Smoking Tobacco: Never Assessed Sex and Gender Information Value Date Recorded Sex Assigned at Not on file Legal Sex Male 3:27 AM WEB CONTENT SPECIALIST Gender Identity Not on file Sexual Orientation Not on file documented as of this encounter Last Filed Vital Signs Vital Sign Reading Time Taken Comments Blood Pressure - - Pulse - - Temperature 35.1 C (95.2 F) 05/09/2007 9:30 AM WEB CONTENT SPECIALIST Respiratory Rate - - Oxygen Saturation - - Inhaled Oxygen Concentration - - Weight - - Height - - Body Mass Index - - documented in this encounter Plan of Treatment Not on file documented as of this encounter Procedures Procedure Name Priority Date/Time Associated Diagnosis Comments MICROALBUMIN/CREATININ E RATIO, RANDOM UR Routine 05/09/2007 10:20 AM WEB CONTENT SPECIALIST TSH Routine 05/09/2007 10:20 AM WEB CONTENT SPECIALIST HEMOGLOBIN A1C Routine 05/09/2007 10:20 AM WEB CONTENT SPECIALIST LIPID PANEL Routine 05/09/2007 10:20 AM WEB CONTENT SPECIALIST COMPREHENSIVE METABOLIC PANEL Routine 05/09/2007 10:20 AM WEB CONTENT SPECIALIST documented in this encounter Results * MICROALBUMIN/CREATININE RATIO, RANDOM UR (05/09/2007 10:20 AM WEB CONTENT SPECIALIST) MICROALBUMIN/C REAT RATIO, UR 11 0 - 29 mg/g creatinine INTERFACE SYSTEM 05/09/2007 10:2 0 AM WEB CONTENT SPECIALIST Reimagefernanda DavisSkyRankrakesh URINE ORDERABLES Edited Performing Organization Address [facility] Phone Number INTERFACE SYSTEM Refer to clinic/hospital department * (ABNORMAL) HEMOGLOBIN A1C (05/09/2007 10:20 AM WEB CONTENT SPECIALIST) HEMOGLOBIN A1C 7.5(H) 4.1 - 6.1 % of Hgb INTERFACE SYSTEM GLUCOSE, MEAN BLOOD 190 mg/dL INTERFACE SYSTEM 05/09/2007 10:2 0 AM WEB CONTENT SPECIALIST Analyte Logicdaniela Diaz CHEMISTRY ORDERABLES Edited Performing Organization Address City/[facility] Phone Number INTERFACE SYSTEM Refer to clinic/hospital department * TSH (05/09/2007 10:20 AM WEB CONTENT SPECIALIST) TSH 2.02 0.27 - 4.20 uU/mL INTERFACE SYSTEM 05/09/2007 10:2 0 AM WEB CONTENT SPECIALIST Analyte Logicdaniela DavisSkyRankrakesh CHEMISTRY ORDERABLES Edited Performing Organization Address [facility] Phone Number INTERFACE SYSTEM Refer to clinic/hospital department * (ABNORMAL) COMPREHENSIVE METABOLIC PANEL (05/09/2007 10:20 AM WEB CONTENT SPECIALIST) GLUCOSE 159(H) 65 - 99 mg/dL INTERFACE SYSTEM CREATININE 0.90 0.67 - 1.17 mg/dL INTERFACE SYSTEM CALCIUM 10.3(H) 8.4 - 10.2 mg/dL INTERFACE SYSTEM ALKALINE PHOSPHATASE 79 40 - 129 U/L INTERFACE SYSTEM AST 21 12 - 38 U/L INTERFACE SYSTEM ALT 18 0 - 41 U/L INTERFACE SYSTEM TOTAL PROTEIN 7.1 6.3 - 8.6 g/dL INTERFACE SYSTEM ALBUMIN 4.5 3.4 - 4.8 g/dL INTERFACE SYSTEM BILIRUBIN TOTAL 0.5 0.2 - 1.0 mg/dL INTERFACE SYSTEM BUN 22(H) 6 - 20 mg/dL INTERFACE SYSTEM SODIUM 135 135 - 145 mmol/L INTERFACE SYSTEM POTASSIUM [...] and non- Americans is available on the [facility] Intranet at: [email or web address] Select: Lab Policies and Procedures Select: Reference Ranges - GFR 05/09/2007 10:2 0 AM WEB CONTENT SPECIALIST [employer] CHEMISTRY ORDERABLES Edited Performing Organization Address [facility] de Phone Number INTERFACE SYSTEM Refer to clinic/hospital department * (ABNORMAL) LIPID PANEL (05/09/2007 10:20 AM WEB CONTENT SPECIALIST) CHOLESTEROL 200(H) 100 - 199 mg/dL INTERFACE SYSTEM TRIGLYCERIDE 299(H) 10 - 149 mg/dL INTERFACE SYSTEM HDL 46 40 - 59 mg/dL INTERFACE SYSTEM CHOL/HDL RATIO 4.3 2.0 - 5.0 INTER FACE SYSTEM LDL CALCULATED 94 <=99 mg/dL INTERFACE SYSTEM LIPID PANEL COMMENT See Below INTERFACE SYSTEM Comment: The adult ATP and pediatric NCEP classifications for lipids are available on the [facility] Intranet at: [email or web address] Select: Lab Policies and Procedures,Current Select: Lipid Panel Interpretation 05/09/2007 10:2 0 AM WEB CONTENT SPECIALIST [place] SaengsaSkyRankan CHEMISTRY ORDERABLES Edited Performing Organization Address City/[facility]/ZIP Co de Phone Number INTERFACE SYSTEM Refer to clinic/hospital department documented in this encounter Visit Diagnoses Diagnosis Type II or unspecified type diabetes mellitus without mention of complication, uncontrolled- Primary documented in this encounter Care Teams Contract Runner Relationship Specialty Start Date End Date Lino Sarah MD NO ADDRESS ON FILE PCP - General 11/29/07 documented as of this encounter
--- OUTSIDE RECORDS SUMMARY | 2025-03-08 13:39 | XMS_ITS | Clinical Summary ---
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 Active azelastine (ASTELIN) 137 mcg (0.1 %) nasal spray Administer 1 spray into each nostril 2 (two) times a day as needed for rhinitis or allergies (congestion and drainage) Use in each nostril as directed 30 mL 06/30/20 21 Active Additional Information Patient not taking.Reported on 02/07/2025 cholecalciferol (Vitamin D3) 2000 unit tablet Active benzonatate (TESSALON) 100 mg capsuleIndicati ons:Cough Take 1 capsule (100 mg total) by mouth 3 (three) times a day as needed for cough 42 capsule 3 04/30/20 24 Active Additional Information Patient not taking.Reported on 02/07/2025 metFORMIN (GLUCOPHAGE) 1,000 mg tabletIndicatio ns:Type 2 diabetes mellitus with stage 3a chronic kidney disease, without long-term current use of insulin (HCC) Take 1 tablet (1,000 mg total) by mouth daily with breakfast 90 tablet 3 04/30/20 24 025 Active multivitamin tabletIndicatio ns:Vitamin Deficiency Prevention Take 1 tablet by mouth Active lisinopriL (PRINIVIL,ZESTR IL) 10 mg tabletIndicatio ns: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 TAKE 1 TABLET(10 MG) BY MOUTH DAILY 90 tablet 1 10/09/19 25 Active vitamin B complex capsule Take 1 capsule by mouth daily 500mg Active isosorbide mononitrate ER (IMDUR) 30 mg 24 hr tablet TAKE 1 TABLET(30 MG) BY MOUTH EVERY NIGHT AT BEDTIME 90 tablet 2 11/07/19 25 Active aspirin 81 mg chewable tabletIndicatio ns: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 CHEW AND SWALLOW 1 TABLET(81 MG) BY MOUTH DAILY 90 tablet 3 11/07/19 25 Active omeprazole (PriLOSEC) 20 mg capsule Take 1 capsule (20 mg total) by mouth daily 100 capsule 01/18/20 25 Active warfarin (COUMADIN) 3 mg tablet TAKE 2.5 TABLETS BY MOUTH ON FRIDAYS, 2 TABLETS DAILY ON SATURDAYS TO THURSDAYS 180 tablet 02/05/20 25 Active carvediloL (COREG) 6.25 mg tabletIndicatio ns:Paroxysmal atrial fibrillation (HCC) Take 0.5 tablets (3.125 mg total) by mouth 2 (two) times a day with meals 180 tablet 2 02/08/20 25 Active atorvastatin (LIPITOR) 80 mg tablet TAKE 1 TABLET(80 MG) BY MOUTH DAILY 90 tablet 3 02/26/20 25 Active atorvastatin (LIPITOR) 80 mg tablet TAKE 1 TABLET(80 MG) BY MOUTH DAILY 90 tablet 3 02/29/20 24 025 Discontinued carvediloL (COREG) 6.25 mg tablet TAKE 1 TABLET(6.25 MG) BY MOUTH TWICE DAILY WITH MEALS 180 tablet 2 01/11/20 25 025 Discontinued Active Problems Problem Noted Date Diagnosed Date Spondylolisthesis at L5-S1 level 01/23/2025 Assessment & Plan (02/07/2025 10:43 AM CDT): Went over results with him He undsertands plans and agrees with it Right lumbar radiculopathy 01/23/2025 Assessment & Plan (02/07/2025 10:44 AM CDT): 2/2 to age/related changes of his spine Does not want to take any medications for this Preventative health care 04/30/2024 Assessment & Plan (04/30/2024 12:33 PM CDT): Reviewed previous labs and diagnostic test results. Chronic medical problems evaluated and management plans discussed with the patient. Prescription medications, supplements, vitamins and immunizations reviewed. Wear seatbelts. Use sunscreen. Discussed healthy diet and disease prevention and controlling portions including alcohol Discussed importance of scheduling recommended screening tests. Discussed importance of regular physical examinations for health maintenance. Discussed importance of a living will, advanced directives and establishing or updating healthcare power of admitted attorneys document and providing our office with a copy. Type 2 diabetes mellitus wit h stage 3a chronic kidney disease, without long-term current use of insulin 08/02/2023 Assessment & Plan (02/07/2025 10:44 AM CDT): Will continue metfromin and diet control Renally dose medications Assessment & Plan (11/01/2024 10:21 AM CDT): Will continue metfromin and diet control Renally dose medications Assessment & Plan (08/02/2024 10:07 AM WALLPAPER HANGER): Will continue metfromin and diet control Renally dose medications Assessment & Plan (04/30/2024 12:33 PM CDT): Will continue diet control Renally dose medications Assessment & Plan (08/02/2023 6:16 AM WALLPAPER HANGER): Will continue diet control Renally dose medications Sensorineural hearing loss (SNHL) of both ears 1 Encounter for Medicare annual wellness exam 01/02 Assessment & Plan (01/27/2023 3:07 PM CDT): Reviewed previous labs and diagnostic test results. Chronic medical problems evaluated and management plans discussed with the patient. Prescription medications, supplements, vitamins and immunizations reviewed. Wear seatbelts. Use sunscreen. Discussed healthy diet and disease prevention and controlling portions including alcohol Discussed importance of scheduling recommended screening tests. Discussed importance of regular physical examinations for health maintenance. Discussed importance of a living will, advanced directives and establishing or updating healthcare power of admitted attorneys document and providing our office with a copy. Overweight with body mass in dex (BMI) of 26 to 26.9 in adult 10/21/2022 Assessment & Plan (01/27/2023 3:07 PM CDT): Monitor weight Stage 3a chronic kidney disease 10/21/2022 Assessment & Plan (08/02/2024 10:06 AM WALLPAPER HANGER): Renally dose medicaitons Stable, monitor Assessment & Plan (04/30/2024 12:33 PM CDT): Renally dose medicaitons Assessment & Plan (08/02/2023 6:16 AM WALLPAPER HANGER): Renally dose medicaitons Assessment & Plan (01/27/2023 3:08 PM CDT): Chronic stable Well controlled Continue current prescribed medications at current dose Assessment & Plan (10/21/2022 2:37 PM CDT): Blood pressure is soft Reports loose stool frequently Change his mag Reduce lisinpril Stop HCTZ Recheck in 3 months Bilateral impacted cerumen 01/19/2022 Assessment & Plan (01/19/2022 2:07 PM CDT): Chronic. Referral to ENT placed. Screening for colon cancer 10/02/2021 Assessment & Plan (10/02/2021 1:54 PM CDT): Patient and his desire to continue with colon cancer screening. Cologuard ordered today. Combined forms of age-related cataract of both e yes 06/03/2021 Vitamin D deficiency 01/19/2021 Assessment & Plan (08/13/2022 8:42 AM WALLPAPER HANGER): Chronic. Labs today. Assessment & Plan (01/19/2022 2:06 PM CDT): Chronic. Labs today. Patient tentatively to continue vitamin-D 2000 international units daily. Assessment & Plan (10/02/2021 1:52 PM CDT): Chronic. Labs today. Initiate supplementation according to results. Assessment & Plan (01/19/2021 5:47 PM CDT): Currently on vitamin-D supplementation. Will recheck levels today. Hyperlipidemia associated with type 2 diabetes christa saha 05/02/2017 Assessment & Plan (08/02/2024 10:06 AM WALLPAPER HANGER): Chronic stable Well controlled Continue current prescribed medications lipitor at current dose Assessment & Plan (08/02/2023 6:16 AM WALLPAPER HANGER): Chronic stable Well controlled Continue current prescribed medications at current dose Assessment & Plan (01/27/2023 3:07 PM CDT): Chronic stable Well controlled Continue current prescribed medications at current dose Assessment & Plan (10/21/2022 2:36 PM CDT): Chronic stable Well controlled Continue current prescribed medications at current dose Assessment & Plan (01/19/2022 2:08 PM CDT): Chronic, stable. Continue statin therapy. Assessment & Plan (01/19/2021 5:47 PM CDT): Chronic, stable. Recheck labs today and continue high-intensity dosed atorvastatin per Cardiology. Chronic anticoagulation 05/02/2017 LBBB (left bundle branch block) 05/02/2017 Hypertension associated with diabetes 05/02/2017 Assessment & Plan (08/02/2024 10:06 AM WALLPAPER HANGER): Chronic stable Well controlled Continue current prescribed medications imdur, coreg, lisinopril at current dose Assessment & Plan (10/31/2023 1:49 PM CDT): Well controlled Assessment & Plan (08/02/2023 6:16 AM WALLPAPER HANGER): Chronic stable Well controlled Continue current prescribed medications at current dose Assessment & Plan (01/19/2022 2:08 PM CDT): Chronic, stable, well controlled. Continue hydrochlorothiazide, isosorbide, lisinopril, carvedilol. Assessment & Plan (10/02/2021 1:55 PM CDT): Chronic, stable, effectively treated. Continue carvedilol, HCTZ, lisinopril, isosorbide mononitrate. Assessment & Plan (01/19/2021 5:47 PM CDT): Chronic, stable, effectively treated. Continue regimen of carvedilol, hydrochlorothiazide, isosorbide mononitrate, lisinopril. 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 Continue to follow with cardiology. Continue goal directed therapy including lisinopril, carvedilol, atorvastatin. Assessment & Plan (01/19/2021 5:47 PM CDT): Chronic, stable, without current anginal symptoms. Continued management per Cardiology. NICM (nonischemic cardiomyopathy) 04/23/2015 Overview (10/07/2016): Nonischemic cardiomyopathy Assessment & Plan (08/02/2024 10:05 AM WALLPAPER HANGER): S/p pacer Follow cardiology stable Assessment & Plan (04/30/2024 12:32 PM CDT): S/p pacer Follow cardiology stable Assessment & Plan (10/31/2023 1:49 PM CDT): S/p pacer Follow cardiology stable Assessment & Plan (08/13/2022 8:43 AM WALLPAPER HANGER): Chronic, stable, euvolemic. Continue carvedilol. Assessment & Plan (10/02/2021 1:57 PM CDT): Chronic, stable. Monitor. Paroxysmal atrial fibrillation 04/10/2014 Overview (10/07/2016): Atrial fibrillation Assessment & Plan (02/07/2025 10:46 AM CDT): With bradycardia today Asymptomatic Will reduce dose of medication first and he will report back his HR tomorrow Assessment & Plan (11/01/2024 10:21 AM CDT): s/p pacer Well controlled Follow cardiology On coumadin Assessment & Plan (08/02/2024 10:05 AM WALLPAPER HANGER): s/p pacer Well controlled Follow cardiology On coumadin Assessment & Plan (04/30/2024 12:32 PM CDT): s/p pacer Well controlled Follow cardiology On coumadin Assessment & Plan (10/31/2023 1:48 PM CDT): /p pacer Well controlled Follow cardiology On coumadin Assessment & Plan (01/27/2023 3:07 PM CDT): Chronic stable Well controlled Continue current prescribed medications at current dose Assessment & Plan (10/21/2022 2:36 PM CDT): Chronic stable Well controlled Continue current prescribed medications at current dose Assessment & Plan (01/19/2022 2:06 PM CDT): Chronic, stable, maintained in sinus rhythm post cardioversion. Continue warfarin for anticoagulation and carvedilol for rate control. Assessment & Plan (10/02/2021 1:51 PM CDT): Chronic, seemingly maintained in sinus rhythm following cardioversion 3 years ago. Continue warfarin, carvedilol for anticoagulation and rate control respectively. Assessment & Plan (01/19/2021 5:46 PM CDT): Chronic, seemingly maintained in sinus rhythm following cardioversion 3 years ago. He continues on anticoagulation and rate control per Cardiology. 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 Continue to monitor. Could consider parathyroidectomy in future for presumed parathyroid adenoma. Assessment & Plan (01/19/2022 2:06 PM CDT): Chronic, with previously elevated parathyroid hormone levels. Likely exacerbated in part by hypovitaminosis D. Labs today for follow-up. Assessment & Plan (10/02/2021 1:49 PM CDT): Chronic, not requiring intervention to date. Labs today for follow up. Assessment & Plan (01/19/2021 5:45 PM CDT): With previously noted hypercalcemia. Will recheck levels today and reassess. If there is concern for parathyroid disease, parathyroid adenoma is the most likely cause. Any possible management steps to be guided by level of hypercalcemia, if present. 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 Referral placed to physical therapy. Monitor. Patient reassured that this is not a serious or dangerous process. Weakness 01/19/2021 04/30/2024 Assessment & Plan (01/19/2022 2:07 PM CDT): Chronic, in part due to decreased physical activity and deconditioning. Discussed with patient that fatigue with exercise is something to take into consideration, as the goal is not for him to over exert or over tire himself. However we discussed by being inactive he is actually putting himself at risk of fall, injury. He is at least today amenable to physical therapy and referral has been placed. Assessment & Plan (01/19/2021 5:47 PM CDT): Due to deconditioning. Referral placed to physical therapy. Hemangioma of eyelid 05/14/2016 022 Diarrhea 07/24/2013 01/19/2022 Abnormal weight loss 07/24/2013 022 Type 2 diabetes mellitus wit hout complication, without long-term current use of insulin 07/02/2004 04/30/2024 Assessment & Plan (10/31/2023 1:10 PM CDT): Significant improvement However he is having loose stools Recommend he stop mag ox Assessment & Plan (08/02/2023 6:15 AM WALLPAPER HANGER): Will continue metformin and diet control Assessment & Plan (01/27/2023 3:07 PM CDT): Chronic stable Well controlled Continue current prescribed medications at current dose Assessment & Plan (10/21/2022 2:36 PM CDT): Well controlled contine current plan Assessment & Plan (08/13/2022 8:43 AM WALLPAPER HANGER): Chronic, uncontrolled. Aguilar discussion with patient and his today regarding diabetes management. Patient's asks about taking additional time for him to work on his diet before adding additional medication. I advised against this, as this has previously been offered and patient has diet has not undergone any meaningful changes. At this point my concern is that his persistently uncontrolled diabetes poses greater and greater risk to his health, including his cardiovascular disease. Labs today. Continue metformin for now. Assessment & Plan (01/19/2022 2:06 PM CDT): Chronic, uncontrolled. Continue metformin. Diabetic diet reviewed today. Assessment & Plan (10/02/2021 1:52 PM CDT): Chronic, near goal with last A1c of 7.3. Labs today. Continue metformin. Assessment & Plan (01/19/2021 5:46 PM CDT): Chronic, previously well controlled on metformin monotherapy. Will recheck labs today. If A1c is greater than 7, consider adding either a GLP-1 or an SGL T2. Encounters Date Type Department Care Team Description 03/06/2025 Anticoagulation Visit [facility] Cardiology [address] [place] [address] [place] [phone] Linda Bingham RN Paroxysmal atrial fibrillation (HCC) (Primary Dx) 02/07/2025 9:15 AM CDT Office Visit [facility] Primary Care [address] [place] [address] [place] [phone] Michele Zacarias Jr., MD Type 2 diabetes mellitus with stage 3a chronic kidney disease, without long-term current use of insulin (HCC) (Primary Dx); Paroxysmal atrial fibrillation (HCC); Spondylolisthesis at L5-S1 level; Right lumbar radiculopathy 01/30/2025 Anticoagulation Visit [facility] Cardiology [address] [place] [address] [place] [phone] Linda Bingham RN Paroxysmal atrial fibrillation (HCC) (Primary Dx) 01/24/2025 Anticoagulation Visit [place] [address] [place] [phone] Linda Bingham RN Paroxysmal atrial fibrillation (HCC) (Primary Dx) 01/23/2025 10:08 AM CDT - 01/23/2025 11:59 PM CDT Hospital Encounter [facility] [place] [address] Degeneration of intervertebral disc of lumbosacral region with discogenic back pain; Right lumbar radiculopathy Discharge Disposition: Discharge to home or self care 01/23/2025 10:00 AM CDT Office Visit [facility] [address] [place] [address] [address], [address] [place] [address] Garrison Simmons PA Spondylolisthesis at L5-S1 level (Primary Dx); Degeneration of intervertebral disc of lumbosacral region with discogenic back pain; Right lumbar radiculopathy 01/23/2025 Orders Only [facility] [place] [facility] [address] [place] [address] Scanning, Provider 01/22/2025 Telephone [facility] [address] [facility] [address] [place] [address] Delaney Cooper RN 01/14/2025 Anticoagulation Visit [address] [place] [address] Linda Bingham RN Paroxysmal atrial fibrillation (HCC) (Primary Dx) 01/11/2025 7:59 AM CDT - 01/11/2025 11:59 PM CDT Hospital Encounter [address] [address] Degeneration of intervertebral disc of lumbosacral region with discogenic back pain Discharge Disposition: Discharge to home or self care 01/11/[address] [place] [address] Philippe Cruz MD 01/01/2025 Anticoagulation Visit [address] [place] [phone] Linda Bingham RN Paroxysmal atrial fibrillation (HCC) (Primary Dx) 12/24/2024 10:00 AM CDT Procedure visit [facility] Dermatology [address] [facility] [address] [place] [address] Hawa Peralta MD Basal cell carcinoma (BCC) of forehead (Primary Dx) 12/24/2024 Anticoagulation Visit [address] [place] [phone] Mariam Obregon RN Paroxysmal atrial fibrillation (HCC) (Primary Dx) 12/22/2024 Orders Only [facility] [place] [facility] [address] [place] [address] Scanning, Provider 12/21/[address] [place] [address] Philippe Cruz MD INR order 12/21/2024 Telephone [facility] Medicine Dermatology [address] [facility] [address] [place] [phone] Corine Campos RMA from Last 3 Months Immunizations Immunization Administration Dates Next Due Influenza, Quadrivalent, Hig h Dose, Preservative Free, Intrr 03/24/2023,03/18/2022,04/09/2021,03/20 Influenza, Trivalent, High D ose, Split, Preservative Free, Intramuscular 04/07/2024,03/27/2019,04/27/2018 Influenza, Trivalent, IM (MDV) 07/20/2001 Influenza, Unspecified 04/23/2021 Pneumococcal Conjugate PCV 13 04/14/2021, 021 Pneumococcal Polysaccharide PPV23 07/27/2022 RSV Vaccine, Pref, Recombina nt, Subunit, Adjuvanted, PF, IM (Arexvy) 06/06/2023 ZOSTER Recombinant 03/18/2022,12/16/2021 Surgical History Surgery Date Site/Laterality Comments CORONARY ARTERY BYPASS GRAFT 1990 CABG CHOLECYSTECTOMY Medical History Medical History Date Comments Diabetes mellitus (HCC) Diabetes Hx Other Medical 1994 Coronary Artery Disease- CABG Hx Other Medical Diabetes Type I I Hypertension Arrhythmia HL (hearing loss) Heart disease GERD (gastroesophageal reflux disease) Arthritis Family History Medical History Relation Name Comments Cancer Brother 1 Dean Other Brother 2 Bronchitis, chr onic; Cause of : Bronchitis, chronic Heart attack Father Dharmesh ND; Cause of De ath: ND Heart disease Father Dharmesh Hypertension Father Dharmesh Other Mother PVD, amputation ; Cause of : PVD, amputation Other Other No family histo ry of Diabetes mellitus; Relation Name Status Comments Brother 1 Dean (Age 60) Brother 2 Father Hdarmesh (Age 61) Mother (Age 90) Other Social History Tobacco Use Types Packs/Day Years Used Date Smoking Tobacco: Never Smokeless Tobacco: Never Tobacco Cessation:Counseling Given: Not Answered Alcohol Use Standard Drinks/Week Comments No 0 (1 standard drink = 0.6 oz pur e alcohol) AUDIT-C Answer Date Recorded Q1: How often do you have a drink containing alcohol? Never 02/07/2025 Q2: How many drinks containi ng alcohol do you have on a typical day when you are drinking? Patient does not drink Q3: How often do you have si x or more drinks on one occasion? Never 02/07/2025 PHQ-2 Answer Date Recorded PHQ-2 Total Score (If total score is 3 or more points, staff should administer the PHQ-9) 0 02/07/2025 Sex and Gender Information Value Date Recorded Sex Assigned at Not on file Legal Sex Male 12:27 AM WALLPAPER HANGER Gender Identity Male 06/30/2021 2:21 PM WALLPAPER HANGER Sexual Orientation Not on file Obstetrics History Last Filed Vital Signs Vital Sign Reading Time Taken Comments Blood Pressure 110/60 02/07/2025 9:09 AM CDT Pulse 43 02/07/2025 9:09 AM CDT Temperature 36.4 C (97.5 F) 02/07/2025 9:09 AM CDT Respiratory Rate 18 02/07/2025 9:09 AM CDT Oxygen Saturation 97% 02/07/2025 9:09 AM CDT Inhaled Oxygen Concentration - - Weight 87.1 kg (192 lb) 02/07/2025 9:09 AM CDT Height 182.9 cm (6') 02/07/2025 9:09 AM CDT Body Mass Index 26.04 02/07/2025 9:09 AM CDT Plan of Treatment Health Maintenance Due Date Last Done Comments Hepatitis B Screening 1963 Foot Exam 01/28/2024 01/27/2023, 01/01, 01/19/2021, Additional history exists Covid-19 Vaccine (2023-2 5 season) 2025 04/07/2024, 03/29/2022, 11/09/2021, Additional history exists Influenza Vaccine (#1) 2025 , 03/24/2023, 03/18/2022, Additional history exists Fall Risk Assessment 04/30/2025 04/30/2024, 01/27/2023, 10/21/2022, Additional history exists Well Visit 65+ 04/30/2025 04/30/2024, 01/27/2023 Hemoglobin A1C 08/10/2025 02/07/2025, 05/0 07/2024, 08/02/2024, Additional history exists Albumin Creatinine Ratio, Urine 11/01/2025 11/01/2024, 10/31/2023, 01/27/2023, Additional history exists Lipid Panel 11/01/2025 11/01/2024, 10/03, 10/21/2022, Additional history exists eGFR 11/01/2025 11/01/2024, 10/03, 10/21/2022, Additional history exists Dilated Eye Exam 11/21/2025 11/21/2024, 02/2024, 11/03/2022, Additional history exists Depression Screening 02/07/2026 02/07/2025, 11/01/2024, 08/02/2024, Additional history exists Zoster Vaccine Completed 03/18/2022, 12/16/2021 Pneumococcal vaccine 65+ Completed 023, 04/14/2021, 01/19/2021 DTaP/Tdap/Td Vaccine Discontinued Procedures Procedure Name Priority Date/Time Associated Diagnosis Comments PROTIME-INR Routine 03/05/2025 POCT GLUCOSE Routine 02/07/2025 9:38 AM CDT Type 2 diabetes mellitus with stage 3a chronic kidney disease, without long-term current use of insulin (HCC) POCT HEMOGLOBIN A1C Routine 02/07/2025 9:19 AM CDT Type 2 diabetes mellitus with stage 3a chronic kidney disease, without long-term current use of insulin (HCC) PROTIME-INR Routine 02/01/2025 9:28 PM CDT XR SCOLIOSIS AP LAT Schedule Routine, Read Routine (OP Routine) 01/23/2025 10:26 AM CDT Degeneration of intervertebral disc of lumbosacral region with discogenic back pain Right lumbar radiculopathy XR LUMBAR SPINE AP LAT FLEX EX Schedule Routine, Read Routine (OP Routine) 01/23/2025 10:26 AM CDT Degeneration of intervertebral disc of lumbosacral region with discogenic back pain Right lumbar radiculopathy SCAN - LABS 01/23/2025 PROTIME-INR Routine 01/23/2025 PROTIME-INR Routine 01/14/2025 MRI LUMBAR SPINE WO CONTRAST Schedule Routine, Read Routine (OP Routine) 01/11/2025 9:03 AM CDT Degeneration of intervertebral disc of lumbosacral region with discogenic back pain PROTIME-INR Routine 01/01/2025 PROTIME-INR Routine 12/24/2024 SCAN - LABS 12/22/2024 ALBUMIN CREATININE RATIO, URINE Routine 11/01/2024 10:59 AM CDT Type 2 diabetes mellitus with stage 3a chronic kidney disease, without long-term current use of insulin (HCC) EGFR Routine 11/01/2024 10:55 AM CDT Type 2 diabetes mellitus with stage 3a chronic kidney disease, without long-term current use of insulin (HCC) LIPID PANEL Routine 11/01/2024 10:55 AM CDT Type 2 diabetes mellitus with stage 3a chronic kidney disease, without long-term current use of insulin (HCC) DIABETES EYE EXAM Routine 11/03/2022 DIABETES FOOT EXAM Routine 01/19/2021 from Last 3 Months or Most Recently Relevant to Health Maintenance Results * (ABNORMAL) Protime-INR (03/05/2025) INR 2.20(A) 0.90 - 1.10 EXTERNAL LAB Blood us Historical Provider LAB BLOOD ORDERABLES Kimberly katz Result EXTERNAL LAB * POCT glucose (02/07/2025 9:38 AM CDT) Glucose Blood, POC 263 Normal Fasting 70 - 100, Random <200 mg/dL Blood 02/07/2025 9:38 AM CDT Michele Zacarias Jr., MD POINT OF CARE TEST OR DERABLES Final Result * (ABNORMAL) POCT hemoglobin A1c (02/07/2025 9:19 AM CDT) Hemoglobin A1C, POC 8.8(A) 4.0 - 5.6 % Capillary blood 02/07/2025 9 :19 AM CDT Michele Zacarias Jr., MD POINT OF CARE TEST OR DERABLES Final Result * (ABNORMAL) Protime-INR (02/01/2025 9:28 PM CDT) Pathologist [facility] INR 3.20(A) 0.90 - 1.10 EXTERNAL LAB Blood Historical Provider LAB BLOOD ORDERABLES Edit ed Result - Final EXTERNAL LAB * XR Spine Lumbar Ap Lat Flex Ext min 4 Views (01/23/2025 10:26 AM CDT) Anatomical Region Laterality Modality L-spine N/A Computed Radiogr aphy 01/26/2025 8:28 AM CDT Narrative 01/26/2025 8:30 AM CDT EXAM DESCRIPTION: 1. XR SCOLIOSIS AP AND LATERAL; 2. XR SPINE LUMBAR AP LAT FLEX EXT MIN 4 VIEWS REASON FOR STUDY: pain Increased pain in low back and both legs, right worse than left for 1 year, no injury FINDINGS: Two views thoracolumbar spine and subsequently 4 dedicated views lumbar spine submitted with comparison 01/11/2025. Mild dextrocurvature of the upper thoracic spine, levocurvature of the inferior thoracic spine and mild rotary dextroscoliosis of the upper lumbar spine. Right inferior pelvic tilt. Left coronal and positive sagittal imbalance. Multilevel thoracic degenerative disc disease is present. Moderate L1-L2, severe L2-L4, mild L4-L5 and severe L5-S1 degenerative disc disease. Grade 2 anterolisthesis of L5 on S1 with bilateral pars defects. Flexion-extension views demonstrate no abnormal translation. Arterial atherosclerosis and right upper quadrant surgical clips are present. IMPRESSION: 1. Mild S-shaped thoracolumbar scoliosis with right inferior pelvic tilt, left coronal and positive sagittal imbalance. 2. Multilevel thoracic degenerative disc disease. 3. Moderate to severe multilevel lumbar degenerative disc disease, greatest at L2-L4 and L5-S1. 4. Grade 2 anterolisthesis of L5 on S1 with bilateral pars defects. THIS IS AN ELECTRONICALLY VERIFIED FINAL REPORT 01/26/2025 8:30 AM - Electronically signed by Michele Rangel M.D. T: Report ID: [id number] Reading Location: [id number] Procedure Note Michele Rangel MD - 01/26/2025 EXAM DESCRIPTION: 1. XR SCOLIOSIS AP AND LATERAL; 2. XR SPINE LUMBAR AP LAT FLEX EXT MIN 4 VIEWS REASON FOR STUDY: pain Increased pain in low back and both legs, right worse than left for 1year, no injury FINDINGS: Two views thoracolumbar spine and subsequently 4 dedicated views lumbar spine submitted with comparison 01/11/2025. Mild dextrocurvature of the upper thoracic spine, levocurvature of the inferior thoracic spine and mild rotary dextroscoliosis of the upperlumbar spine. Right inferior pelvic tilt. Left coronal and positive sagittal imbalance. Multilevel thoracic degenerative disc disease is present. Moderate L1-L2, severe L2-L4, mild L4-L5 and severe L5-S1 degenerativedisc disease. Grade 2 anterolisthesis of L5 on S1 with bilateral pars defects. Flexion-extension views demonstrate no abnormal translation. Arterial atherosclerosis and right upper quadrant surgical clips are present. IMPRESSION: 1. Mild S-shaped thoracolumbar scoliosis with right inferior pelvictilt, left coronal and positive sagittal imbalance. 2. Multilevel thoracic degenerative disc disease. 3. Moderate to severe multilevel lumbar degenerative disc disease,greatest at L2-L4 and L5-S1. 4. Grade 2 anterolisthesis of L5 on S1 with bilateral pars defects. THIS IS AN ELECTRONICALLY VERIFIED FINAL REPORT 01/26/2025 8:30 AM - Electronically signed by Michele Rangel M.D. T: Report ID: [id number] Reading Location: [place] [id number] [facility] IMG XR PROCEDURES Final Re sult * XR Scoliosis Ap Lat (01/23/2025 10:26 AM CDT) Anatomical Region Laterality Modality Spine N/A Computed Radiogr aphy 01/26/2025 8:28 AM CDT Narrative 01/26/2025 8:30 AM CDT EXAM DESCRIPTION: 1. XR SCOLIOSIS AP AND LATERAL; 2. XR SPINE LUMBAR AP LAT FLEX EXT MIN 4 VIEWS REASON FOR STUDY: pain Increased pain in low back and both legs, right worse than left for 1 year, no injury FINDINGS: Two views thoracolumbar spine and subsequently 4 dedicated views lumbar spine submitted with comparison 01/11/2025. Mild dextrocurvature of the upper thoracic spine, levocurvature of the inferior thoracic spine and mild rotary dextroscoliosis of the upper lumbar spine. Right inferior pelvic tilt. Left coronal and positive sagittal imbalance. Multilevel thoracic degenerative disc disease is present. Moderate L1-L2, severe L2-L4, mild L4-L5 and severe L5-S1 degenerative disc disease. Grade 2 anterolisthesis of L5 on S1 with bilateral pars defects. Flexion-extension views demonstrate no abnormal translation. Arterial atherosclerosis and right upper quadrant surgical clips are present. IMPRESSION: 1. Mild S-shaped thoracolumbar scoliosis with right inferior pelvic tilt, left coronal and positive sagittal imbalance. 2. Multilevel thoracic degenerative disc disease. 3. Moderate to severe multilevel lumbar degenerative disc disease, greatest at L2-L4 and L5-S1. 4. Grade 2 anterolisthesis of L5 on S1 with bilateral pars defects. THIS IS AN ELECTRONICALLY VERIFIED FINAL REPORT 01/26/2025 8:30 AM - Electronically signed by Michele Rangel M.D. T: Report ID: [id number] Reading Location: [id number] Procedure Note Michele Rangel MD - 01/26/2025 EXAM DESCRIPTION: 1. XR SCOLIOSIS AP AND LATERAL; 2. XR SPINE LUMBAR AP LAT FLEX EXT MIN 4 VIEWS REASON FOR STUDY: pain Increased pain in low back and both legs, right worse than left for 1year, no injury FINDINGS: Two views thoracolumbar spine and subsequently 4 dedicated views lumbar spine submitted with comparison 01/11/2025. Mild dextrocurvature of the upper thoracic spine, levocurvature of the inferior thoracic spine and mild rotary dextroscoliosis of the upperlumbar spine. Right inferior pelvic tilt. Left coronal and positive sagittal imbalance. Multilevel thoracic degenerative disc disease is present. Moderate L1-L2, severe L2-L4, mild L4-L5 and severe L5-S1 degenerativedisc disease. Grade 2 anterolisthesis of L5 on S1 with bilateral pars defects. Flexion-extension views demonstrate no abnormal translation. Arterial atherosclerosis and right upper quadrant surgical clips are present. IMPRESSION: 1. Mild S-shaped thoracolumbar scoliosis with right inferior pelvictilt, left coronal and positive sagittal imbalance. 2. Multilevel thoracic degenerative disc disease. 3. Moderate to severe multilevel lumbar degenerative disc disease,greatest at L2-L4 and L5-S1. 4. Grade 2 anterolisthesis of L5 on S1 with bilateral pars defects. THIS IS AN ELECTRONICALLY VERIFIED FINAL REPORT 01/26/2025 8:30 AM - Electronically signed by Michele Rangel M.D. T: Report ID: [id number] Reading Location: [id number] [facility] XR PROCEDURES Final Re sult * SCAN - LABS (01/23/2025) Provider Scanning Final Result * (ABNORMAL) Protime-INR (01/23/2025) INR 3.00(A) 0.90 - 1.10 EXTERNAL LAB Blood us Historical Provider MD LAB BLOOD ORDERABLES Kimberly l Result Performing Organization Address City/[facility]/ZIP Co de Phone Number EXTERNAL LAB * (ABNORMAL) Protime-INR (01/14/2025) INR 4.30(A) 0.90 - 1.10 EXTERNAL LAB Blood us Historical Provider MD LAB BLOOD ORDERABLES Edit ed Result - Final Performing Organization Address City/[facility]/ZIP Co de Phone Number EXTERNAL LAB * MRI Lumbar Spine WO Contrast (01/11/2025 9:03 AM CDT) Anatomical Region Laterality Modality Spine N/A Magnetic Resonan ce 01/11/2025 10:3 7 AM CDT Narrative 01/11/2025 10:46 AM CDT EXAM DESCRIPTION: MRI LUMBAR SPINE WO CONTRAST REASON FOR STUDY: Low back pain, symptoms persist with > 6 wks treatment, Low back pain, spondyloarthropathy suspected, xray done TECHNIQUE: Sagittal and Axial imaging includes T1, T2, STIR sequences. COMPARISON: Lumbar spine radiographs dated 11/01/2024. FINDINGS: SEGMENTATION: 5 lbw-mjz-knlgcyy lumbar type vertebral bodies. ALIGNMENT: Dextroconvex upper and levoconvex lower lumbar curvature. Grade 1 retrolisthesis of L1 on L2 through L3 on L4. Chronic bilateral L5 pars defects with 8 mm of anterolisthesis of L5 on S1. VERTEBRAE: Inferior endplate of L1 focal T1 and T2 hypointense signal with STIR hyperintensity is presumed to be a Schmorl's node with edema in a patient without history of trauma. The L1-L2 and L2-L3 opposing endplate STIR signal to the left of midline is nonspecific and presumed to be degenerative in nature signal is located along the scoliotic curvature. Additional endplate degenerative changes and marginal spur formation ranging up to severe. Diffuse facet arthropathy. DISC HEIGHT: Diffuse intervertebral disc height loss ranging up to severe. HARDWARE: None in the spine. CORD/CAUDA: Conus medullaris terminates at T12-L1. LOWER THORACIC: Incompletely imaged. Degenerative changes without high-grade spinal canal stenosis. INDIVIDUAL DISC LEVELS: L1-L2: Retrolisthesis L1 on L2 with unroofing of the disc and marginal spur formation eccentric to the left neural foramen. Thickened ligamentum flavum and facet arthropathy. Trace facet joint effusion. Flattening of the ventral thecal sac and left lateral recess effacement. Zhlg-jv-aeiiiewi left and no significant right neural foraminal narrowing. L2-L3: Retrolisthesis of L2 on L3 with unroofing of the disc and marginal spur formation eccentric to the left neural foramen. Thickened ligamentum flavum and facet arthropathy. Trace facet joint effusion. Flattening of the ventral thecal sac. Ovnwa-sbyowbi-upvf-left lateral recess effacement. Uxfg-lj-dqsspunf left and no significant right neural foraminal narrowing. L3-L4: Retrolisthesis of L3 on L4 with unroofing of the disc and marginal spur formation. Thickened ligamentum flavum facet arthropathy. Trace facet joint effusion. Flattening of the ventral thecal sac. Mild bilateral neural foraminal narrowing. L4-L5: Retrolisthesis of L4 on L5 with unroofing of the disc and marginal spur formation. Bilateral facet arthropathy. Mild diminished transverse dimension of the spinal canal. Severe right and osol-pb-mdcsovcg left neural foraminal narrowing. L5-S1: Anterolisthesis of L5 on S1 with unroofing of the disc and marginal spur formation. Bilateral facet arthropathy. No significant spinal canal stenosis. Right wdyvf-acthqnj-koab-left lateral recess effacement. Severe neural foraminal narrowing. IMPRESSION: 1. The inferior endplate of L1 focal T1 hypointense, STIR signal could be a Schmorl's node with edema. Please correlate with point tenderness is concern for a fracture with edema. 2. Lumbar disc degeneration ranging up to severe with thickened ligamentum flavum and facet arthropathy as described. No high-grade spinal canal stenosis. 3. Neural foraminal narrowing ranging up to severe at L4-L5 and L5-S1. 4. Chronic bilateral L5 pars defects anterolisthesis of L5 on S1 and other findings as above. THIS IS AN ELECTRONICALLY VERIFIED FINAL REPORT 01/11/2025 10:46 AM - Electronically signed by Ravindra Nicole D.O. AP: AP Report ID: [id number] Reading Location: [place] [id number] Procedure Note Ravindra Nicole, DO - 01/11/2025 EXAM DESCRIPTION: MRI LUMBAR SPINE WO CONTRAST REASON FOR STUDY: Low back pain, symptoms persist with > 6 wkstreatment, Low back pain, spondyloarthropathy suspected, xray done TECHNIQUE: Sagittal and Axial imaging includes T1, T2, STIR sequences. COMPARISON: Lumbar spine radiographs dated 11/01/2024. FINDINGS: SEGMENTATION: 5 ezy-vdy-rqbbuum lumbar type vertebral bodies. ALIGNMENT: Dextroconvex upper and levoconvex lower lumbar curvature.Grade 1 retrolisthesis of L1 on L2 through L3 on L4. Chronic bilateral L5 pars defects with 8 mm of anterolisthesis of L5 on S1. VERTEBRAE: Inferior endplate of L1 focal T1 and T2 hypointense signalwith STIR hyperintensity is presumed to be a Schmorl's node with edema in apatient without history of trauma. The L1-L2 and L2-L3 opposing endplate STIRsignal to the left of midline is nonspecific and presumed to be degenerative in nature signal is located along the scoliotic curvature. Additionalendplate degenerative changes and marginal spur formation ranging up to severe. Diffuse facet arthropathy. DISC HEIGHT: Diffuse intervertebral disc height loss ranging up tosevere. HARDWARE: None in the spine. CORD/CAUDA: Conus medullaris terminates at T12-L1. LOWER THORACIC: Incompletely imaged. Degenerative changes without high-grade spinal canal stenosis. INDIVIDUAL DISC LEVELS: L1-L2: Retrolisthesis L1 on L2 with unroofing of the disc and marginalspur formation eccentric to the left neural foramen. Thickened ligamentumflavum and facet arthropathy. Trace facet joint effusion. Flattening of theventral thecal sac and left lateral recess effacement. Dmvp-xx-fabnutsy left andno significant right neural foraminal narrowing. L2-L3: Retrolisthesis of L2 on L3 with unroofing of the disc and marginalspur formation eccentric to the left neural foramen. Thickened ligamentumflavum and facet arthropathy. Trace facet joint effusion. Flattening of theventral thecal sac. Hgjut-qbqicfx-svkf-left lateral recess effacement. Cfqt-zs-jhzyqfyk left and no significant right neural foraminalnarrowing. L3-L4: Retrolisthesis of L3 on L4 with unroofing of the disc and marginalspur formation. Thickened ligamentum flavum facet arthropathy. Trace facetjoint effusion. Flattening of the ventral thecal sac. Mild bilateral neural foraminal narrowing. L4-L5: Retrolisthesis of L4 on L5 with unroofing of the disc and marginalspur formation. Bilateral facet arthropathy. Mild diminished transversedimension of the spinal canal. Severe right and iynm-gy-ifvraqbe left neuralforaminal narrowing. L5-S1: Anterolisthesis of L5 on S1 with unroofing of the disc and marginal spur formation. Bilateral facet arthropathy. No significant spinal canal stenosis. Right zbrbb-mwkqdry-misd-left lateral recess effacement.Severe neural foraminal narrowing. IMPRESSION: 1. The inferior endplate of L1 focal T1 hypointense, STIR signal couldbe a Schmorl's node with edema. Please correlate with point tenderness isconcern for a fracture with edema. 2. Lumbar disc degeneration ranging up to severe with thickenedligamentum flavum and facet arthropathy as described. No high-grade spinal canal stenosis. 3. Neural foraminal narrowing ranging up to severe at L4-L5 and L5-S1. 4. Chronic bilateral L5 pars defects anterolisthesis of L5 on S1 andother findings as above. THIS IS AN ELECTRONICALLY VERIFIED FINAL REPORT 01/11/2025 10:46 AM - Electronically signed by Ravindra Nicole D.O. AP: AP Report ID: [id number] Reading Location: [id number] Michele Zacarias Jr., MD IMG MRI PROCEDURES Fi nal Result * (ABNORMAL) Protime-INR (01/01/2025) INR 3.60(A) 0.90 - 1.10 EXTERNAL LAB Blood Historical Provider LAB BLOOD ORDERABLES Edit ed Result - Final Performing Organization Address [facility]/ZIP Co de Phone Number EXTERNAL LAB * (ABNORMAL) Protime-INR (12/24/2024) Pathologist [facility] INR 3.80(A) 0.90 - 1.10 EXTERNAL LAB Blood Historical Provider LAB BLOOD ORDERABLES Kimberly l Result Performing Organization Address [facility] Co de Phone Number EXTERNAL LAB * SCAN - LABS (12/22/2024) Provider Scanning Final Result * (ABNORMAL) Albumin Creatinine Ratio, Urine (11/01/2024 10:59 AM CDT) [facility] Albumin Ur 95.8 mg/L Comment: Interpretive Data No reference range established. Current interpretive data was last revised 2018. Testing performed by: [address] [address] Creatinine Ur 88.5 mg/dL ALEXIA Comment: Interpretive Data No reference range established. Current interpretive data was last revised 2018. Testing performed by: [facility], [address] [place] [address]., [id number] Albumin Creatinine Ratio, Ur 108(H) 1 - 29 mg/g ALEXIA Comment:Testing performed by : [facility], [address] [place] [address]., [id number] Urine 11/01/2024 10:5 9 AM CDT 11/01/2024 1:10 PM CDT Michele Zacarias Jr., MD LAB URINE ORDERABLES Final Result Performing Organization Address [facility] Co de Phone Number [facility] [address] [facility] Department [place] [address] * (ABNORMAL) eGFR (11/01/2024 10:55 AM CDT) [facility] eGFR 53(L) >=60 mL/min/1. 73 m2 Comment: Interpretive Data Reference Interval Normal >/= 90 mL/min/1.73m2 Mildly decreased* 60 - 89 mL/min/1.73m2 Mildly to moderately decreased 45 - 59 mL/min/1.73m2 Moderately to severely decreased 30 - 44 mL/min/1.73m2 Severely decreased 15 - 29 mL/min/1.73m2 Kidney Failure < 15 mL/min/1.73m2 *Relative to young adult level Estimated glomerular filtration rate is determined by the 2020 CKD-EPI equation recommended by the National Kidney Foundation (A Unifying Approach to GFR Estimation: Recommendations of the NKF-ASK Task Force on Reassessing the Inclusion of Race in Diagnosing Kidney Disease, JASN 2020). The CKD-EPI equation should not be used for patients with unstable renal function and has not been validated in children and those over 70. Current interpretive data was last reviewed 2021. Testing performed by: [facility], [address] [place] [address]., [id number] Blood 11/01/2024 10:5 5 AM CDT 11/01/2024 11:52 AM CDT us Michele Zacarias Jr., MD LAB BLOOD ORDERABLES Final Result [facility] [address] [facility] Department [place] [address] * Lipid panel (11/01/2024 10:55 AM CDT) Cholesterol 111 30 - 199 mg/dL Comment: Interpretive Data Ages < or = 19 years Acceptable: <170 mg/dL Borderline high: 170-199 mg/dL High: >or= 200 mg/dL Ages > or = 20 years Desirable: <200 mg/dL Borderline high: 200-239 mg/dL High: >or= 240 mg/dL Literature References: 1. Expert Panel on Integrated Guidelines for Cardiovascular Health and Risk Reduction in Children and Adolescents. Pediatrics 2011;128:S213 2. NCEP Expert Panel. Circulation 2004;110:227 Current Interpretive Data was last revised on 2018. Testing performed by: [address] [address] Triglycerides 134 <=149 mg/dL ALEXIA CRAFT Comment: Interpretive Data Ages < or = 9 years Acceptable: <75 mg/dL Borderline high: 75-99 mg/dL High: >or= 100 mg/dL Ages 10 to 20 years Acceptable: <90 mg/dL Borderline high: 90-129 mg/dL High: >or= 130 mg/dL Ages > or = 20 years Desirable: <150 mg/dL Borderline high: 150-199 mg/dL High: 200-499 mg/dL Very high: >or= 499 mg/dL Literature References: 1. Expert Panel on Integrated Guidelines for Cardiovascular Health and Risk Reduction in Children and Adolescents. Pediatrics 2011;128:S213 2. NCEP Expert Panel. Circulation 2004;110:227 Current Interpretive Data was last revised on 2018. Testing performed by: [address] [address] HDL 47 >=40 mg/dL ALEXIA Comment: Interpretive Data Ages < or = 19 years Acceptable: >45 mg/dL Borderline low: 40-45 mg/dL Low: <40 mg/dL Ages > or = 20 years Desirable: >or= 60 mg/dL Low: <40 mg/dL Literature References: 1. Expert Panel on Integrated Guidelines for Cardiovascular Health and Risk Reduction in Children and Adolescents. Pediatrics 2011;128:S213 2. NCEP Expert Panel. Circulation 2004;110:227 Current Interpretive Data was last revised on 2018. Testing performed by: [address] [address] LDL, calculated 41 <=129 mg/dL ALEXIA Comment: Interpretive Data Ages < or = 19 years Acceptable: <110 mg/dL Borderline high: 110-129 mg/dL High: >or= 130 mg/dL Ages > or = 20 years Optimal: <100 mg/dL Near optimal: 100-129 mg/dL Borderline high: 130-159 mg/dL High: >160 mg/dL Calculated using the Garry LDL-C estimating equation. This equation was implemented on 2024. Prior to this date LDL-C was estimated using the Friedewald equation. Literature References: 1. Expert Panel on Integrated Guidelines for Cardiovascular Health and Risk Reduction in Children and Adolescents. Pediatrics 2011;128:S213 2. NCEP Expert Panel. Circulation 2004;110:227 3. Garry Joseph et al. PRECIOUS Cardiol. 2020 November 01;5(5):540-548. doi: 10.1001/[email or web address].2020.0013 Current Interpretive Data was last revised on 2024. Testing performed by: [address] [address] Non-HDL Cholesterol 64 mg/dL ALEXIA Comment: Interpretive Data Ages < or = 19 years Acceptable: <120 mg/dL Borderline high: 120-144 mg/dL High: >145 mg/dL Ages > or = 20 years When triglycerides are >200 mg/dL, Non-HDL cholesterol is a secondary target of therapy with treatment goals that are 30 mg/dL greater than the LDL cholesterol target. Literature References: 1. Expert Panel on Integrated Guidelines for Cardiovascular Health and Risk Reduction in Children and Adolescents. Pediatrics 2011;128:S213 2. NCEP Expert Panel. Circulation 2004;110:227 Current Interpretive Data was last revised on 2018. Testing performed by: [address] [address] Chol/HDL ratio 2 ALEXIA Comment:Testing performed by : [address] [address] Blood 11/01/2024 10:5 5 AM CDT 11/01/2024 11:52 AM CDT Michele Zacarias Jr., MD LAB BLOOD ORDERABLES Final Result Performing Organization Address City/State/[facility] Co de Phone Number ALEXIA [address] [facility] Department of Laboratories [place], [place] [id number] * DIABETES EYE EXAM (11/03/2022) SCRIBED DIABETIC DILATED EYE EXAM Normal Historical Provider HEALTH MAINTENANCE Edited Result - Final * DIABETES FOOT EXAM (01/19/2021) SCRIBED DIABETIC FOOT EXAM Normal Historical Provider HEALTH MAINTENANCE Final Result from Last 3 Months or Most Recently Relevant to Health Maintenance Insurance [facility] MEDICARE ADVANTAGE UHC MEDICARE ADVANTAGE [facility] MDCR HMO REF [facility] MEDICARE ADVANTAGE Care Teams Aluminum Boats Assembler Relationship Specialty Start Date End Date Michele Zacarias Jr., MD [address] [place] [address] [id number] PCP - General Internal Medicine 10/21/22 [place] [address] [address] Optometry 10/21/22 Jorgito Barahona MD [address] [address] Referring Physician Dermatology 10/21/22 Philippe Cruz MD [address] [place] [address] Consulting Physician Cardiology 10/21/22
--- OUTSIDE RECORDS SUMMARY | 2025-03-08 13:39 | XMS_ITS | Encounter Summary ---
Author Organization [facility] Address [address] [place] [address] Care Team Providers Care Intrusion Analyst Name Role Phone Lino Sarah MD Primary Care Provider Un available Encounter Details Date Type Department Care Team (Late st Contact Info) Description 11/13/2002 Outpatient Historical [facility] Internal Medicine [place] [address] [facility] [address] [place] [phone] [place] [address] [place] [address] Social History Tobacco Use Types Packs/Day Years Used Date Smoking Tobacco: Never Assessed Sex and Gender Information Value Date Recorded Sex Assigned at Not on file 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
--- OUTSIDE RECORDS SUMMARY | 2025-03-08 13:39 | XMS_ITS | Encounter Summary ---
Author Organization [employer] Address [address] [place] [address] Care Team Providers Care School Lunch Monitor Name Role Phone Lino Sarah MD Primary Care Provider Un available Encounter Details Date Type Department Care Team (Late st Contact Info) Description 06/10/2006 Orders Only [facility] 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
--- OUTSIDE RECORDS SUMMARY | 2025-03-08 13:39 | XMS_ITS | Encounter Summary ---
Author Organization [facility] Address [address] [place] [address] Care Team Providers Care Qc Analyst Name Role Phone Lino Sarah MD Primary Care Provider Un available Encounter Details Date Type Department Care Team (Late st Contact Info) Description 06/23/2007 Orders Only [facility] 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
--- OUTSIDE RECORDS SUMMARY | 2025-03-08 13:39 | XMS_ITS | Encounter Summary ---
Author Organization [facility] Address 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
--- OUTSIDE RECORDS SUMMARY | 2025-03-08 13:39 | XMS_ITS | Encounter Summary ---
Author Organization [facility] Address 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
--- OUTSIDE RECORDS SUMMARY | 2025-03-08 13:40 | XMS_ITS | Encounter Summary ---
Author Organization [facility] Address [address] [place] [address] Care Team Providers Care Airplane Flight Attendant Supervisor Name Role Phone Lino Sarah MD Primary Care Provider Un available Encounter Details Date Type Department Care Team (Late st Contact Info) Description 06/15/2007 Outpatient Historical [facility] Internal Medicine [place] [address] [address] [facility] [address] [place] [address] Lino Carrillo ms, MD Social History Tobacco Use Types Packs/Day Years Used Date Smoking Tobacco: Never Assessed Sex and Gender Information Value Date Recorded Sex Assigned at Not on file Legal Sex Male 3:27 AM CUSTOMER COUNTER REPRESENTATIVE Gender Identity Not on file Sexual Orientation Not on file documented as of this encounter Last Filed Vital Signs Vital Sign Reading Time Taken Comments Blood Pressure 120/84 06/15/2007 9:45 AM CUSTOMER COUNTER REPRESENTATIVE Pulse 72 06/15/2007 9:45 AM CUSTOMER COUNTER REPRESENTATIVE Temperature 36.4 C (97.5 F) 06/15/2007 9:45 AM CUSTOMER COUNTER REPRESENTATIVE Respiratory Rate 18 06/15/2007 9:45 AM CUSTOMER COUNTER REPRESENTATIVE Oxygen Saturation - - Inhaled Oxygen Concentration - - Weight 112.9 kg (249 lb) 06/15/2007 9:45 AM CUSTOMER COUNTER REPRESENTATIVE Height 177.8 cm (5' 10) 06/15/2007 9:45 AM CUSTOMER COUNTER REPRESENTATIVE Body Mass Index 35.73 06/15/2007 9:45 AM CUSTOMER COUNTER REPRESENTATIVE documented in this encounter Plan of Treatment Not on file documented as of this encounter Visit Diagnoses Not on filedocumented in this encounter Care Teams Airplane Flight Attendant Supervisor Relationship Specialty Start Date End Date Lino Sarah MD NO ADDRESS ON FILE PCP - General 11/29/07 documented as of this encounter
--- OUTSIDE RECORDS SUMMARY | 2025-03-08 13:40 | XMS_ITS | Encounter Summary ---
Author Organization [facility] Healthcare Address [address] [place] [address] Care Team Providers Care Clinical Medical Assistant Name Role Phone Deann Sanchez MD, Michele Garcia Primary Care Provide r Arvind Anthony OD Unavailable Jorgito Barahona MD Unavailable Philippe Cruz MD Unavailable Encounter Details Date Type Department Care Team (Late st Contact Info) Description 10/31/2024 Orders Only [facility] Health Information Management [address] [place] [address] Scanning, Provider Social History Tobacco Use Types Packs/Day Years Used Date Smoking Tobacco: Never Smokeless Tobacco: Never Alcohol Use Standard Drinks/Week Comments No 0 (1 standard drink = 0.6 oz pur e alcohol) AUDIT-C Answer Date Recorded Q1: How often do you have a drink containing alcohol? Never 11/01/2024 Q2: How many drinks containi ng alcohol do you have on a typical day when you are drinking? Patient does not drink Q3: How often do you have si x or more drinks on one occasion? Never 11/01/2024 PHQ-2 Answer Date Recorded PHQ-2 Total Score (If total score is 3 or more points, staff should administer the PHQ-9) 0 11/01/2024 Sex and Gender Information Value Date Recorded Sex Assigned at Not on file Legal Sex Male 12:27 AM CIRCUIT MANAGER Gender Identity Male 06/30/2021 2:21 PM CIRCUIT MANAGER Sexual Orientation Not on file documented as of this encounter Functional Status * AUDIT-C Score Answer Date of Assessment Author 0 11/01/2024 9:09 AM Chacha Call MA * Question Answer Date of Assessment Author Q1: How often do you have a drink containing alcohol? Never 11/01/2024 9:09 AM Chacha Mcclelland MA Q2: How many drinks containing alcohol do you have on a typical day when you are drinking? Patient does not drink 11/01/2024 9:09 AM Chacha Mcclelland MA Q3: How often do you have six or more drinks on one occasion? Never 11/01/2024 9:09 AM Chacha Mcclelland MA documented as of this encounter Plan of Treatment Not on file documented as of this encounter Procedures Procedure Name Priority Date/Time Associated Diagnosis Comments SCAN - LABS 10/31/2024 documented in this encounter Results * SCAN - LABS (10/31/2024) us Provider Scanning Final Result documented in this encounter Visit Diagnoses Not on filedocumented in this encounter Care Teams Clinical Medical Assistant Relationship Specialty Start Date End Date Michele Zacarias Jr., MD [address] [place] [address] PCP - General Internal Medicine 10/21/22 Arvind Anthony OD [address] [address] Optometry 10/21/22 Jorgito Barahona MD [address] [address] Referring Physician Dermatology 10/21/22 Philippe Cruz MD [address] [place] [address] Consulting Physician Cardiology 10/21/22 documented as of this encounter
--- OUTSIDE RECORDS SUMMARY | 2025-03-08 13:40 | XMS_ITS | Encounter Summary ---
Author Organization [facility] Healthcare Address [address] [place] [address] Care Team Providers Care Inorganic Chemistry Professor Name Role Phone Deann Sanchez MD, Michele Garcia Primary Care Provide r Arvind Anthony OD Unavailable [phone] Jorgito Barahona MD Unavailable Philippe Cruz MD Unavailable Encounter Details Date Type Department Care Team (Late st Contact Info) Description 08/03/2024 Orders Only [facility] Health Information Management [address] [place] [address] Scanning, Provider Social History Tobacco Use Types Packs/Day Years Used Date Smoking Tobacco: Never Smokeless Tobacco: Never Alcohol Use Standard Drinks/Week Comments No 0 (1 standard drink = 0.6 oz pur e alcohol) AUDIT-C Answer Date Recorded Frequency of Alcohol Consumption Not on file 10/31/2023 Q2: How many drinks containi ng alcohol do you have on a typical day when you are drinking? Patient does not drink Frequency of Binge Drinking Not on file 10/03 PHQ-2 Answer Date Recorded PHQ-2 Total Score (If total score is 3 or more points, staff should administer the PHQ-9) 0 08/02/2024 Sex and Gender Information Value Date Recorded Sex Assigned at Not on file Legal Sex Male 12:27 AM ROOM SERVICE CLERK Gender Identity Male 06/30/2021 2:21 PM ROOM SERVICE CLERK Sexual Orientation Not on file documented as of this encounter Plan of Treatment Not on file documented as of this encounter Procedures Procedure Name Priority Date/Time Associated Diagnosis Comments SCAN - LABS 08/03/2024 documented in this encounter Results * SCAN - LABS (08/03/2024) us Provider Scanning Final Result documented in this encounter Visit Diagnoses Not on filedocumented in this encounter Care Teams Inorganic Chemistry Professor Relationship Specialty Start Date End Date Michele Zacarias Jr., MD [address] [place] [address] PCP - General Internal Medicine 10/21/22 Arvind Anthony OD [address] [id number] Optometry 10/21/22 Jorgito Barahona MD [address] [id number] Referring Physician Dermatology 10/21/22 Philippe Cruz MD [address], [address] [place], [place] [id number] Consulting Physician Cardiology 10/21/22 documented as of this encounter
--- OUTSIDE RECORDS SUMMARY | 2025-03-08 13:40 | XMS_ITS | Encounter Summary ---
Author Organization [facility] Healthcare Address [address] [place] [address] Care Team Providers Care Logistics Officer Name Role Phone Deann Sanchez MD, Michele Garcia Primary Care Provide r Arvind Anthony OD Unavailable Jorgito Barahona MD Unavailable Philippe Cruz MD Unavailable Encounter Details Date Type Department Care Team (Late st Contact Info) Description 06/05/2024 Orders Only [facility] Health Information Management [address] [place] [address] Scanning, Provider Social History Tobacco Use [...] points, staff should administer the PHQ-9) 0 04/30/2024 Sex and Gender Information Value Date Recorded Sex Assigned at Not on file Legal Sex Male 12:27 AM TRAY LINE SUPERVISOR Gender Identity Male 06/30/2021 2:21 PM TRAY LINE SUPERVISOR Sexual Orientation Not on file documented as of this encounter Plan of Treatment Not on file documented as of this encounter Procedures Procedure Name Priority Date/Time Associated Diagnosis Comments SCAN - LABS 06/05/2024 documented in this encounter Results * SCAN - LABS (06/05/2024) us Provider Scanning Final Result documented in this encounter Visit Diagnoses Not on filedocumented in this encounter Care Teams Logistics Officer Relationship Specialty Start Date End Date Michele Zacarias Jr., MD [address] [place] [address] PCP - General Internal Medicine 10/21/22 Arvind Anthony OD [address] [id number] Optometry 10/21/22 Jorgito Barahona MD [address] [phone] Referring Physician Dermatology 10/21/22 Philippe Cruz MD [address], [address] [place] [address] Consulting Physician Cardiology 10/21/22 documented as of this encounter
--- OUTSIDE RECORDS SUMMARY | 2025-03-08 13:40 | XMS_ITS | Encounter Summary ---
Author Organization [facility] Healthcare Address [address] [place] [address] Care Team Providers Care Director Of Sports Performance Name Role Phone Deann Sanchez MD, Michele Garcia Primary Care Provide r Arvind Anthony OD Unavailable [phone] Jorgito Barahona MD Unavailable Philippe Cruz MD Unavailable Encounter Details Date Type Department Care Team (Late st Contact Info) Description 05/01/2024 Orders Only [facility] Health Information Management [address] [place] [address] Scanning, Provider Social History Tobacco Use [...] on file Legal Sex Male 12:27 AM CHAINMAN Gender Identity Male 06/30/2021 2:21 PM CHAINMAN Sexual Orientation Not on file documented as of this encounter Plan of Treatment Not on file documented as of this encounter Procedures Procedure Name Priority Date/Time Associated Diagnosis Comments SCAN - LABS 05/01/2024 documented in this encounter Results * SCAN - LABS (05/01/2024) us Provider Scanning Final Result documented in this encounter Visit Diagnoses Not on filedocumented in this encounter Care Teams Director Of Sports Performance Relationship Specialty Start Date End Date Michele Zacarias Jr., MD [address] [place] [address] PCP - General Internal Medicine 10/21/22 Arvind Anthony OD [address] [phone] Optometry 10/21/22 Jorgito Barahona MD [address] [phone] Referring Physician Dermatology 10/21/22 Philippe Cruz MD [address], [address] [place] [address] Consulting Physician Cardiology 10/21/22 documented as of this encounter
--- OUTSIDE RECORDS SUMMARY | 2025-03-08 13:40 | XMS_ITS | Encounter Summary ---
Author Organization [facility] Address 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
--- OUTSIDE RECORDS SUMMARY | 2025-03-08 13:40 | XMS_ITS | Encounter Summary ---
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 Gender Identity Male 06/30/2021 2:21 PM FARM MANAGEMENT TEACHER Sexual Orientation Not on file documented as of this encounter Plan of Treatment Not on file documented as of this encounter Procedures Procedure Name Priority Date/Time Associated Diagnosis Comments SCAN - LABS 07/05/2024 documented in this encounter Results * SCAN - LABS (07/05/2024) us Provider Scanning Final Result documented in this encounter Visit Diagnoses Not on filedocumented in this encounter Care Teams Etl Lead Relationship Specialty Start Date End Date Michele Zacarias Jr., MD [address] [place] [address] PCP - General Internal Medicine 10/21/22 Arvind Anthony OD [address] [phone] Optometry 10/21/22 Jorgito Barahona MD [address] [phone] Referring Physician Dermatology 10/21/22 Philippe Cruz MD [address], [address] [place] [address] Consulting Physician Cardiology 10/21/22 documented as of this encounter
--- OUTSIDE RECORDS SUMMARY | 2025-03-08 13:40 | XMS_ITS | Encounter Summary ---
Author Organization [facility] Healthcare Address [address] [place] [address] Care Team Providers Care Disability Examiner Name Role Phone Deann Sanchez MD, Michele Garcia Primary Care Provide r Arvind Anthony OD Unavailable [phone] Jorgito Barahona MD Unavailable Philippe Cruz MD Unavailable Encounter Details Date Type Department Care Team (Late st Contact Info) Description 03/29/2024 Orders Only [facility] Information Management [address] [place] [address] Scanning, Provider Social History Tobacco Use Types Packs/Day Years Used Date Smoking Tobacco: Never Cigarettes Smokeless Tobacco: Never Alcohol Use Standard Drinks/Week [...] points, staff should administer the PHQ-9) 0 10/31/2023 Sex and Gender Information Value Date Recorded Sex Assigned at Not on file Legal Sex Male 12:27 AM COMMUNICATIONS ASSOCIATE Gender Identity Male 06/30/2021 2:21 PM COMMUNICATIONS ASSOCIATE Sexual Orientation Not on file documented as of this encounter Plan of Treatment Not on file documented as of this encounter Procedures Procedure Name Priority Date/Time Associated Diagnosis Comments SCAN - LABS 03/29/2024 documented in this encounter Results * SCAN - LABS (03/29/2024) us Provider Scanning Final Result documented in this encounter Visit Diagnoses Not on filedocumented in this encounter Care Teams Disability Examiner Relationship Specialty Start Date End Date Michele Zacarias Jr., MD [address] [place] [address] PCP - General Internal Medicine 10/21/22 Arvind Anthony OD [address] [phone] Optometry 10/21/22 Jorgito Barahona MD [address] [phone] Referring Physician Dermatology 10/21/22 Philippe Cruz MD [address], [address] [place], [place] [phone] Consulting Physician Cardiology 10/21/22 documented as of this encounter
--- OUTSIDE RECORDS SUMMARY | 2025-03-08 13:40 | XMS_ITS | Encounter Summary ---
Author Organization [facility] Healthcare Address [address] [place] [address] Care Team Providers Care Drilling Contractor Name Role Phone Deann Sanchez MD, Michele Garcia Primary Care Provide r Arvind Anthony OD Unavailable [phone] Jorgito Barahona MD Unavailable Philippe Cruz MD Unavailable Encounter Details Date Type Department Care Team (Late st Contact Info) Description 12/22/2024 Orders Only [facility] Information Management [address] [place] [address] Scanning, Provider Social History Tobacco Use [...] on file Legal Sex Male 12:27 AM DISTRICT ATTORNEY Gender Identity Male 06/30/2021 2:21 PM DISTRICT ATTORNEY Sexual Orientation Not on file documented as of this encounter Plan of Treatment Not on file documented as of this encounter Procedures Procedure Name Priority Date/Time Associated Diagnosis Comments SCAN - LABS 12/22/2024 documented in this encounter Results * SCAN - LABS (12/22/2024) Provider Scanning Final Result documented in this encounter Visit Diagnoses Not on filedocumented in this encounter Care Teams Drilling Contractor Relationship Specialty Start Date End Date Michele Zacarias Jr., MD [address] [place] [address] PCP - General Internal Medicine 10/21/22 Arvind Anthony OD [address] [phone] Optometry 10/21/22 Jorgito Barahona MD [address] [phone] Referring Physician Dermatology 10/21/22 Philippe Cruz MD [address], [address] [place] [address] Consulting Physician Cardiology 10/21/22 documented as of this encounter
--- OUTSIDE RECORDS SUMMARY | 2025-03-08 13:40 | XMS_ITS | Encounter Summary ---
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 Gender Identity Male 06/30/2021 2:21 PM SURVEYOR HELPER Sexual Orientation Not on file documented as of this encounter Plan of Treatment Not on file documented as of this encounter Procedures Procedure Name Priority Date/Time Associated Diagnosis Comments SCAN - LABS 11/29/2024 documented in this encounter Results * SCAN - LABS (11/29/2024) Provider Scanning Final Result documented in this encounter Visit Diagnoses Not on filedocumented in this encounter Care Teams Employment Legal Assistant Relationship Specialty Start Date End Date Michele Zacarias Jr., MD [address] [place] [id number] PCP - General Internal Medicine 10/21/22 Arvind Anthony OD [address] [id number] Optometry 10/21/22 Jorgito Barahona MD [address] [id number] Referring Physician Dermatology 10/21/22 Philippe Cruz MD [address] [address], [place] [place] [address] Consulting Physician Cardiology 10/21/22 documented as of this encounter
--- OUTSIDE RECORDS SUMMARY | 2025-03-08 13:40 | XMS_ITS | Encounter Summary ---
Author Organization [facility] Healthcare Address [address] [place] [address] Care Team Providers Care Stitch Bonding Machine Tender Name Role Phone Deann Sanchez MD, Michele Garcia Primary Care Provide r Arvind Anthony OD Unavailable Jorgito Barahona MD Unavailable Philippe Cruz MD Unavailable Encounter Details Date Type Department Care Team (Late st Contact Info) Description 09/28/2024 Orders Only [facility] [place] Health Information Management [address] [place] [address] Scanning, Provider Social History Tobacco Use [...] on file Legal Sex Male 12:27 AM CLEANING STAFF SUPERVISOR Gender Identity Male 06/30/2021 2:21 PM CLEANING STAFF SUPERVISOR Sexual Orientation Not on file documented as of this encounter Plan of Treatment Not on file documented as of this encounter Procedures Procedure Name Priority Date/Time Associated Diagnosis Comments SCAN - LABS 09/28/2024 documented in this encounter Results * SCAN - LABS (09/28/2024) us Provider Scanning Final Result documented in this encounter Visit Diagnoses Not on filedocumented in this encounter Care Teams Stitch Bonding Machine Tender Relationship Specialty Start Date End Date Michele Zacarias Jr., MD [address] [place] [id number] PCP - General Internal Medicine 10/21/22 Arvind Anthony OD [address] [id number] Optometry 10/21/22 Jorgito Barahona MD [address] [phone] Referring Physician Dermatology 10/21/22 Philippe Cruz MD [address] [place] [address], [place] [place] [address] Consulting Physician Cardiology 10/21/22 documented as of this encounter
--- OUTSIDE RECORDS SUMMARY | 2025-03-08 13:40 | XMS_ITS | Encounter Summary ---
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 Gender Identity Male 06/30/2021 2:21 PM MARINE ELECTRICIAN Sexual Orientation Not on file documented as of this encounter Plan of Treatment Not on file documented as of this encounter Procedures Procedure Name Priority Date/Time Associated Diagnosis Comments SCAN - LABS 08/31/2024 documented in this encounter Results * SCAN - LABS (08/31/2024) us Provider Scanning Final Result documented in this encounter Visit Diagnoses Not on filedocumented in this encounter Care Teams Sewing Supervisor Relationship Specialty Start Date End Date Michele Zacarias Jr., MD [address] [place] [id number] PCP - General Internal Medicine 10/21/22 Arvind Anthony OD [address] [id number] Optometry 10/21/22 Jorgito Barahona MD [address] [id number] Referring Physician Dermatology 10/21/22 Philippe Cruz MD [address] [place] [address], [address] [place] [address] Consulting Physician Cardiology 10/21/22 documented as of this encounter
--- NOTE | 2025-03-08 14:31 | ECG_ITS ---
Test Date: 2025-03-08 14:40:30 Measurements Intervals Metcalf Rate: 98 P: 20 LA: 155 QRS: -12 QRSD: 146 T: 152 QT: 348 QTc: 445 Interpretive Statements SINUS RHYTHM WITH FREQUENT SUPRAVENTRICULAR PREMATURE COMPLEXES LEFT BUNDLE BRANCH BLOCK [120+ ms QRS DURATION, 80+ ms Q/S IN V1/V2, 85+ ms R IN I/aVL/V5/V6] No previous ECG available for comparison Electronically Signed On 03-09-2025 10:41:09 CDT by Sang Salazar M.D.
[2025-03-08 14:45] LABS: Hematocrit 42.2 % (42.0-52.0); Hemoglobin 14.1 g/dL (14.0-18.0); Immature Granulocyte Percent A 0.4 % (0-0.5); Immature Platelet Fraction Pct 3.1 % (0.9-11.2); Lymphocytes Absolute Auto 0.22 K/mm3 (0.9-3.2); Mean Corpuscular HGB Conc 33.4 g/dl (32-36); Mean Corpuscular Hemoglobin 33.1 pg (26-34); Mean Corpuscular Volume 99.1 fl (80-100); Nucleated Red Blood Cells Absolute Auto 0.000 K/mm3 (0.0-0.012); Nucleated Red Blood Cells Perc 0.0 % (0.0-0.2); Platelet Count Result 137 k/mm3 (150-375); Red Blood Count 4.26 M/mm3 (4.6-6.20); White Blood Count 5.6 K/mm3 (4.5-10.0)
[2025-03-08 14:55] LABS: Alanine Aminotransferase 502 U/L (6-50); Albumin Level 4.5 g/dL (3.5-5.1); Alkaline Phosphatase 258 U/L (38-126); Anion Gap 9 mmol/L (4-12); Bilirubin,Total 2.8 mg/dL (0.2-1.3); Blood Urea Nitrogen 27 mg/dL (9-20); Calcium 11.5 mg/dL (8.4-10.2); Carbon Dioxide 23 mmol/L (22-30); Chloride 105 mmol/L (98-107); Estimated CRCL calculation 39 ml/min; Estimated Glomerular Filt Rate 54; Glucose 223 mg/dL (65-110); Potassium 4.7 mmol/L (3.4-5.0); Sodium 137 mmol/L (137-145); Total Protein 7.3 g/dL (6.3-8.2)
[2025-03-08 14:57] LABS: Add Urine Microscopic? YES; Glucose Urine UA Trace mg/dL (Negative); Leukocyte Esterase Ur Negative LEU/UL (Negative); Nitrate Urine Negative (Negative); Specific Grav Ur 1.019 (1.001-1.035)
[2025-03-08 14:59] LABS: Appearance Urine Clear (Clear)
[2025-03-08 15:04] LABS: Aspartate Amino Transferase 801 U/L (17-59)
--- OUTSIDE RECORDS SUMMARY | 2025-03-08 16:20 | XMS_ITS | Encounter Summary ---
Author Organization [facility] Address [address] [place] [address] Care Team Providers Care Horse Racer Name Role Phone Lino Sarah MD Primary Care Provider Un available Encounter Details Date Type Department Care Team (Late st Contact Info) Description 2006 Outpatient Historical [facility] Internal Medicine [place] [address] [address] [facility] [address] [place] [address] Bobby Choe MD [address] [place] [address] Social History Tobacco Use Types Packs/Day Years Used Date Smoking Tobacco: Never Assessed Sex and Gender Information Value Date Recorded Sex Assigned at Not on file Legal Sex Male 3:27 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
--- OUTSIDE RECORDS SUMMARY | 2025-03-08 16:20 | XMS_ITS | Encounter Summary ---
Author Organization [facility] Address [address] [place] [address] Care Team Providers Care Party Plan Sales Consultant Name Role Phone Lino Sarah MD Primary Care Provider Un available Encounter Details Date Type Department Care Team (Late st Contact Info) Description 06/10/2006 Orders Only [facility] 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
--- OUTSIDE RECORDS SUMMARY | 2025-03-08 16:20 | XMS_ITS | Clinical Summary ---
Author Organization [facility] [place] [address] Address [address] [place] [address] Care Team Providers Care Volunteer Services Specialist Name Role Phone Deann Sanchez MD, Michele Garcia Primary Care Provide r Arvind Anthony OD Unavailable Jorgito Baraohna MD Unavailable Philippe Cruz MD Unavailable Allergies [...] 10 mg tabletIndicatio ns:Coronary artery disease of [place] artery of [place] heart with stable angina pectoris TAKE 1 [...] mg chewable tabletIndicatio ns:Coronary artery disease of [place] artery of [place] heart with stable angina pectoris CHEW AND [...] and establishing or updating healthcare power of commercial litigation attorney document and providing our office with a [...] medications Assessment & Plan (08/02/2024 10:07 AM PSYCHOLOGIST PRIVATE PRACTICE): Will continue metfromin and diet control Renally dose medications Assessment & Plan (04/30/2024 12:33 PM CDT): Will continue diet control Renally dose medications Assessment & Plan (08/02/2023 6:16 AM PSYCHOLOGIST PRIVATE PRACTICE): Will continue diet control Renally dose medications [...] and establishing or updating healthcare power of commercial litigation attorney document and providing our office with a copy. Overweight with body mass in dex (BMI) of 26 to 26.9 in adult 10/21/2022 Assessment & Plan (01/27/2023 3:07 PM CDT): Monitor weight Stage 3a chronic kidney disease 10/21/2022 Assessment & Plan (08/02/2024 10:06 AM PSYCHOLOGIST PRIVATE PRACTICE): Renally dose medicaitons Stable, monitor Assessment & Plan (04/30/2024 12:33 PM CDT): Renally dose medicaitons Assessment & Plan (08/02/2023 6:16 AM PSYCHOLOGIST PRIVATE PRACTICE): Renally dose medicaitons Assessment & Plan (01/27/2023 [...] 01/19/2021 Assessment & Plan (08/13/2022 8:42 AM PSYCHOLOGIST PRIVATE PRACTICE): Chronic. Labs today. Assessment & Plan (01/19/2022 [...] 05/02/2017 Assessment & Plan (08/02/2024 10:06 AM PSYCHOLOGIST PRIVATE PRACTICE): Chronic stable Well controlled Continue current prescribed medications lipitor at current dose Assessment & Plan (08/02/2023 6:16 AM PSYCHOLOGIST PRIVATE PRACTICE): Chronic stable Well controlled Continue current prescribed [...] 05/02/2017 Assessment & Plan (08/02/2024 10:06 AM PSYCHOLOGIST PRIVATE PRACTICE): Chronic stable Well controlled Continue current prescribed medications imdur, coreg, lisinopril at current dose Assessment & Plan (10/31/2023 1:49 PM CDT): Well controlled Assessment & Plan (08/02/2023 6:16 AM PSYCHOLOGIST PRIVATE PRACTICE): Chronic stable Well controlled Continue current prescribed [...] artery disease of n ative artery of point [place] heart with stable angina pectoris 04/23/2015 Overview (10/07/2016): Coronary artery disease involving point [place] coronary artery of [place] heart without angina pectoris Assessment & Plan (08/02/2024 10:05 AM PSYCHOLOGIST PRIVATE PRACTICE): Stable, continue coumadin and aspirin Assessment & [...] cardiomyopathy Assessment & Plan (08/02/2024 10:05 AM PSYCHOLOGIST PRIVATE PRACTICE): S/p pacer Follow cardiology stable Assessment & Plan (04/30/2024 12:32 PM CDT): S/p pacer Follow cardiology stable Assessment & Plan (10/31/2023 1:49 PM CDT): S/p pacer Follow cardiology stable Assessment & Plan (08/13/2022 8:43 AM PSYCHOLOGIST PRIVATE PRACTICE): Chronic, stable, euvolemic. Continue carvedilol. Assessment & [...] coumadin Assessment & Plan (08/02/2024 10:05 AM PSYCHOLOGIST PRIVATE PRACTICE): s/p pacer Well controlled Follow cardiology On [...] NOS Assessment & Plan (08/02/2024 10:05 AM PSYCHOLOGIST PRIVATE PRACTICE): Stable Continue to monitor calcium levels Assessment & Plan (04/30/2024 12:32 PM CDT): Stable Continue to monitor calcium levels Assessment & Plan (10/31/2023 1:49 PM CDT): Stable Continue to monitor calcium levels Assessment & Plan (08/13/2022 8:39 AM PSYCHOLOGIST PRIVATE PRACTICE): Hyperparathyroidism with stable hypercalcemia. Continue to monitor. [...] ox Assessment & Plan (08/02/2023 6:15 AM PSYCHOLOGIST PRIVATE PRACTICE): Will continue metformin and diet control Assessment & Plan (01/27/2023 3:07 PM CDT): Chronic stable Well controlled Continue current prescribed medications at current dose Assessment & Plan (10/21/2022 2:36 PM CDT): Well controlled contine current plan Assessment & Plan (08/13/2022 8:43 AM PSYCHOLOGIST PRIVATE PRACTICE): Chronic, uncontrolled. Aguilar discussion with patient and [...] Department Care Team Description 03/06/2025 Anticoagulation Visit [facility] Cardiology [address] [place] [address] [place] [phone] Linda Bingham RN Paroxysmal atrial fibrillation (HCC) (Primary Dx) 02/07/2025 9:15 AM CDT Office Visit [facility] Primary Care [address] [place] [address] [place] [phone] Michele Zacarias Jr., MD Type 2 diabetes mellitus with stage 3a chronic kidney disease, without long-term current use of insulin (HCC) (Primary Dx); Paroxysmal atrial fibrillation (HCC); Spondylolisthesis at L5-S1 level; Right lumbar radiculopathy 01/30/2025 Anticoagulation Visit [facility] Cardiology [address] [place] [address] [place] [phone] Linda Bingham RN Paroxysmal atrial fibrillation (HCC) (Primary Dx) 01/24/2025 Anticoagulation Visit [place] [address] [place] [phone] Linda Bingham RN Paroxysmal atrial fibrillation (HCC) (Primary Dx) 01/23/2025 10:08 AM CDT - 01/23/2025 11:59 PM CDT Hospital Encounter [facility] [place] [address] Degeneration of intervertebral disc of lumbosacral region with discogenic back pain; Right lumbar radiculopathy Discharge Disposition: Discharge to home or self care 01/23/2025 10:00 AM CDT Office Visit [facility] [address] [place] [address] [address], [address] [place] [address] Garrison Simmons PA Spondylolisthesis at L5-S1 level (Primary Dx); Degeneration of intervertebral disc of lumbosacral region with discogenic back pain; Right lumbar radiculopathy 01/23/2025 Orders Only [facility] Information Management [address] [place] [address] Scanning, Provider 01/22/2025 Telephone [facility] [address] [facility] [address] [place] [address] Delaney Cooper RN 01/14/2025 Anticoagulation Visit [address] [place] [address] Linda Bingham RN Paroxysmal atrial fibrillation (HCC) (Primary Dx) 01/11/2025 7:59 AM CDT - 01/11/2025 11:59 PM CDT Hospital Encounter [address] [address] Degeneration of intervertebral disc of lumbosacral region with discogenic back pain Discharge Disposition: Discharge to home or self care 01/11/[address] [place] [address] Philippe Cruz MD 01/01/2025 Anticoagulation Visit [address] [place] [phone] Linda Bingham RN Paroxysmal atrial fibrillation (HCC) (Primary Dx) 12/24/2024 10:00 AM CDT Procedure visit [facility] [address] [facility] [address] [place] [address] Hawa Peralta MD Basal cell carcinoma (BCC) of forehead (Primary Dx) 12/24/2024 Anticoagulation Visit [address] [place] [address] Mariam Obregon RN Paroxysmal atrial fibrillation (HCC) (Primary Dx) 12/22/2024 Orders Only [facility] [address] [place] [address] Scanning, Provider 12/21/[address] [place] [address] Philippe Cruz MD INR order 12/21/2024 Telephone [facility] Dermatology [address] [facility] [address] [place] [address] Corine Campos [...] : Bronchitis, chronic Heart attack Father Dharmesh [place]; Cause of De ath: [place] Heart disease Father Dharmesh Hypertension Father Dharmesh Other Mother PVD, amputation ; Cause of : PVD, amputation Other Other No family histo ry of Diabetes mellitus; Relation Name Status Comments Brother 1 Dean (Age 60) Brother 2 Father Dharmesh (Age 61) Mother (Age 90) Other Social [...] on file Legal Sex Male 12:27 AM PSYCHOLOGIST PRIVATE PRACTICE Gender Identity Male 06/30/2021 2:21 PM PSYCHOLOGIST PRIVATE PRACTICE Sexual Orientation Not on file Obstetrics History [...] (ABNORMAL) Protime-INR (02/01/2025 9:28 PM CDT) Pathologist [facility] INR 3.20(A) 0.90 - 1.10 EXTERNAL LAB [...] by Michele Rangel M.D. T: Report ID: [id number] Reading Location: [id number] Procedure Note Michele Rangel MD - 01/26/2025 [...] by Michele Rangel M.D. T: Report ID: [id number] Reading Location: [place] [address] G[address] ROMERO IMG XR PROCEDURES Final Re [...] by Michele Rangel M.D. T: Report ID: [id number] Reading Location: [id number] Procedure Note Michele Rangel MD - 01/26/2025 [...] by Michele Rangel M.D. T: Report ID: [id number] Reading Location: [id number] Garrison ROMERO IMPedro XR PROCEDURES Final Re sult * SCAN - LABS (01/23/2025) Provider Scanning Final Result * (ABNORMAL) Protime-INR (01/23/2025) INR 3.00(A) 0.90 - 1.10 EXTERNAL LAB Blood us Historical Provider MD LAB BLOOD ORDERABLES Kimberly l Result Performing Organization Address City/[facility]/ZIP Co de Phone Number EXTERNAL LAB * (ABNORMAL) Protime-INR (01/14/2025) INR 4.30(A) 0.90 - 1.10 EXTERNAL LAB Blood us Historical Provider MD LAB BLOOD ORDERABLES Edit ed Result - Final Performing Organization Address City/[facility]/ZIP Co de Phone Number EXTERNAL LAB * [...] spine radiographs dated 11/01/2024. FINDINGS: SEGMENTATION: 5 uai-psr-uwbrptq lumbar type vertebral bodies. ALIGNMENT: Dextroconvex upper [...] thecal sac and left lateral recess effacement. Qnep-yi-rjqugcnp left and no significant right neural foraminal narrowing. L2-L3: Retrolisthesis of L2 on L3 with unroofing of the disc and marginal spur formation eccentric to the left neural foramen. Thickened ligamentum flavum and facet arthropathy. Trace facet joint effusion. Flattening of the ventral thecal sac. Nfzaf-ehlyctc-olru-left lateral recess effacement. Idml-ra-fmvivczp left and no significant right neural foraminal [...] of the spinal canal. Severe right and egjr-xp-pqqaookv left neural foraminal narrowing. L5-S1: Anterolisthesis of L5 on S1 with unroofing of the disc and marginal spur formation. Bilateral facet arthropathy. No significant spinal canal stenosis. Right mfbtf-pmorlkb-vvvv-left lateral recess effacement. Severe neural foraminal narrowing. [...] Ravindra Nicole D.O. AP: AP Report ID: [id number] Reading Location: [place] [address] Procedure Note Ravindra Nicole, DO - 01/11/2025 EXAM DESCRIPTION: MRI LUMBAR SPINE WO CONTRAST REASON FOR STUDY: Low back pain, symptoms persist with > 6 wkstreatment, Low back pain, spondyloarthropathy suspected, xray done TECHNIQUE: Sagittal and Axial imaging includes T1, T2, STIR sequences. COMPARISON: Lumbar spine radiographs dated 11/01/2024. FINDINGS: SEGMENTATION: 5 ehx-xul-rgunndu lumbar type vertebral bodies. ALIGNMENT: Dextroconvex upper [...] thecal sac and left lateral recess effacement. Qqsh-xa-txjhjqhx left andno significant right neural foraminal narrowing. L2-L3: Retrolisthesis of L2 on L3 with unroofing of the disc and marginalspur formation eccentric to the left neural foramen. Thickened ligamentumflavum and facet arthropathy. Trace facet joint effusion. Flattening of theventral thecal sac. Indhy-fbdtnwc-scgm-left lateral recess effacement. Bxrb-oy-sftkkxaw left and no significant right neural foraminalnarrowing. [...] of the spinal canal. Severe right and lkxl-om-sacfvsdf left neuralforaminal narrowing. L5-S1: Anterolisthesis of L5 on S1 with unroofing of the disc and marginal spur formation. Bilateral facet arthropathy. No significant spinal canal stenosis. Right wimyu-fguowlp-xgrw-left lateral recess effacement.Severe neural foraminal narrowing. IMPRESSION: [...] Ravindra Nicole D.O. AP: AP Report ID: [id number] Reading Location: [id number] Michele Zacarias Jr., MD IMG MRI PROCEDURES Fi nal Result * (ABNORMAL) Protime-INR (01/01/2025) INR 3.60(A) 0.90 - 1.10 EXTERNAL LAB Blood Historical Provider LAB BLOOD ORDERABLES Edit ed Result - Final Performing Organization Address [facility]/ZIP Co de Phone Number EXTERNAL LAB * (ABNORMAL) Protime-INR (12/24/2024) Pathologist [facility] INR 3.80(A) 0.90 - 1.10 EXTERNAL LAB Blood Historical Provider LAB BLOOD ORDERABLES Kimberly l Result Performing Organization Address [facility] Co de Phone Number EXTERNAL LAB * SCAN - LABS (12/22/2024) Provider Scanning Final Result * (ABNORMAL) Albumin Creatinine Ratio, Urine (11/01/2024 10:59 AM CDT) [facility] Albumin Ur 95.8 mg/L Comment: Interpretive Data No reference range established. Current interpretive data was last revised 2018. Testing performed by: [address] [address] Creatinine Ur 88.5 mg/dL ALEXIA Comment: Interpretive Data No reference range established. Current interpretive data was last revised 2018. Testing performed by: [facility], [address] [place] [address]., [address] Albumin Creatinine Ratio, Ur 108(H) 1 - 29 mg/g ALEXIA Comment:Testing performed by : [facility], [address] [place] [address]., [address] Urine 11/01/2024 10:5 9 AM CDT 11/01/2024 1:10 PM CDT Michele Zacarias Jr., MD LAB URINE ORDERABLES Final Result Performing Organization Address [facility] Co de Phone Number [facility] [address] [facility] [place] [address] * (ABNORMAL) eGFR (11/01/2024 10:55 AM CDT) [facility] eGFR 53(L) >=60 mL/min/1. 73 m2 Comment: [...] was last reviewed 2021. Testing performed by: [facility], [address] [place] [address]., [address] Blood 11/01/2024 10:5 5 AM CDT 11/01/2024 11:52 AM CDT us Michele Zacarias Jr., MD LAB BLOOD ORDERABLES Final Result [facility] [address] [facility] [place] [address] * Lipid panel (11/01/2024 10:55 [...] last revised on 2018. Testing performed by: [address] [address] Triglycerides 134 <=149 mg/dL ALEXIA CRAFT Comment: [...] last revised on 2018. Testing performed by: [address] [address] HDL 47 >=40 mg/dL ALEXIA Comment: Interpretive [...] last revised on 2018. Testing performed by: [address] [address] LDL, calculated 41 <=129 mg/dL ALEXIA Comment: [...] last revised on 2024. Testing performed by: [address] [address] Non-HDL Cholesterol 64 mg/dL ALEXIA Comment: Interpretive [...] last revised on 2018. Testing performed by: [address] [address] Chol/HDL ratio 2 ALEXIA Comment:Testing performed by : [address] [address] Blood 11/01/2024 10:5 5 AM CDT 11/01/2024 11:52 AM CDT Michele Zacarias Jr., MD LAB BLOOD ORDERABLES Final Result Performing Organization Address City/State/[facility] Co de Phone Number ALEXIA [address] [facility] Department of Laboratories [place], [place] [id number] * DIABETES EYE EXAM (11/03/2022) SCRIBED DIABETIC DILATED EYE EXAM Normal Historical Provider HEALTH MAINTENANCE Edited Result - Final * DIABETES FOOT EXAM (01/19/2021) SCRIBED DIABETIC FOOT EXAM Normal Historical Provider HEALTH MAINTENANCE Final Result from Last 3 Months or Most Recently Relevant to Health Maintenance Insurance [facility] MEDICARE ADVANTAGE UHC MEDICARE ADVANTAGE [facility] MDCR HMO REF [facility] MEDICARE ADVANTAGE Care Teams Volunteer Services Specialist Relationship Specialty Start Date End Date Michele Zacarias Jr., MD [address] [place] [phone] PCP - General Internal Medicine 10/21/22 Arvind Anthony OD [address] [address] Optometry 10/21/22 Jorgito Barahona MD [address] [address] Referring Physician Dermatology 10/21/22 Philippe Cruz MD [address] [place] [place] [address] Consulting Physician Cardiology 10/21/22
--- OUTSIDE RECORDS SUMMARY | 2025-03-08 16:20 | XMS_ITS | Encounter Summary ---
Author Organization [employer] Address [address] 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 786.2-COUGH The patient's chronic cough has not [...] assess medication effect. LAB ORDERS: Order number: [id number] Test Ordered: COMPREHENSIVE METABOLIC PANEL & GFR 1112 Order number: [id number] Test Ordered: HEMOGLOBIN A1C 1814 Order number: [id number] Test Ordered: LIPID PANEL 1078 Order number: [id number] Test Ordered: TSH 1720 272.4-HYPERLIPIDEMIA ASSESSMENT: Will [...] NEW PRESCRIPTION, 02/06/2007. LAB ORDERS: Order number: [id number] Test Ordered: XRAY CHEST (2 VIEWS) 709.9-SKIN [...] on filedocumented in this encounter Care Teams Jetting Machine Operator Relationship Specialty Start Date End Date Lino Sarah MD NO ADDRESS ON FILE PCP - General 11/29/07 documented as of this encounter
--- OUTSIDE RECORDS SUMMARY | 2025-03-08 16:20 | XMS_ITS | Encounter Summary ---
Author Organization [facility] Address [address] [place] [address] Care Team Providers Care Bottom Wheeler Name Role Phone Lino Sarah MD Primary Care Provider Un available Encounter Details Date Type Department Care Team (Late st Contact Info) Description 12/08/2005 Outpatient Historical [facility] Internal Medicine [place] [address] [facility] [address] [place] [phone] Lino Carrillo ms, MD Social History Tobacco Use Types Packs/Day Years Used Date Smoking Tobacco: Never Assessed Sex and Gender Information Value Date Recorded Sex Assigned at Not on file Legal Sex Male 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
--- OUTSIDE RECORDS SUMMARY | 2025-03-08 16:20 | XMS_ITS | Encounter Summary ---
Author Organization [facility] Address 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
--- OUTSIDE RECORDS SUMMARY | 2025-03-08 16:20 | XMS_ITS | Encounter Summary ---
Author Organization [facility] Address [address] [place] [address] Care Team Providers Care Retort Operator Name Role Phone Lino Sarah MD Primary Care Provider Un available Encounter Details Date Type Department Care Team (Latest Contact Info) Description 05/09/[address] 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 MACHINE BACKTENDER Gender Identity Not on file Sexual Orientation Not on file documented as of this encounter Last Filed Vital Signs Vital Sign Reading Time Taken Comments Blood Pressure - - Pulse - - Temperature 35.1 C (95.2 F) 05/09/2007 9:30 AM PAPER MACHINE BACKTENDER Respiratory Rate - - Oxygen Saturation - - Inhaled Oxygen Concentration - - Weight - - Height - - Body Mass Index - - documented in this encounter Plan of Treatment Not on file documented as of this encounter Procedures Procedure Name Priority Date/Time Associated Diagnosis Comments MICROALBUMIN/CREATININ E RATIO, RANDOM UR Routine 05/09/2007 10:20 AM PAPER MACHINE BACKTENDER TSH Routine 05/09/2007 10:20 AM PAPER MACHINE BACKTENDER HEMOGLOBIN A1C Routine 05/09/2007 10:20 AM PAPER MACHINE BACKTENDER LIPID PANEL Routine 05/09/2007 10:20 AM PAPER MACHINE BACKTENDER COMPREHENSIVE METABOLIC PANEL Routine 05/09/2007 10:20 AM PAPER MACHINE BACKTENDER documented in this encounter Results * MICROALBUMIN/CREATININE RATIO, RANDOM UR (05/09/2007 10:20 AM PAPER MACHINE BACKTENDER) MICROALBUMIN/C REAT RATIO, UR 11 0 - 29 mg/g creatinine INTERFACE SYSTEM 05/09/2007 10:2 0 AM PAPER MACHINE BACKTENDER Docittfernanda DavisSyracuse Universityrakesh URINE ORDERABLES Edited Performing Organization Address [facility] Phone Number INTERFACE SYSTEM Refer to clinic/hospital department * (ABNORMAL) HEMOGLOBIN A1C (05/09/2007 10:20 AM PAPER MACHINE BACKTENDER) HEMOGLOBIN A1C 7.5(H) 4.1 - 6.1 % of Hgb INTERFACE SYSTEM GLUCOSE, MEAN BLOOD 190 mg/dL INTERFACE SYSTEM 05/09/2007 10:2 0 AM PAPER MACHINE BACKTENDER CallVUdaniela Diaz CHEMISTRY ORDERABLES Edited Performing Organization Address City/[facility] Phone Number INTERFACE SYSTEM Refer to clinic/hospital department * TSH (05/09/2007 10:20 AM PAPER MACHINE BACKTENDER) TSH 2.02 0.27 - 4.20 uU/mL INTERFACE SYSTEM 05/09/2007 10:2 0 AM PAPER MACHINE BACKTENDER CallVUdaniela DavisSyracuse Universityrakesh CHEMISTRY ORDERABLES Edited Performing Organization Address [facility] Phone Number INTERFACE SYSTEM Refer to clinic/hospital department * (ABNORMAL) COMPREHENSIVE METABOLIC PANEL (05/09/2007 10:20 AM PAPER MACHINE BACKTENDER) GLUCOSE 159(H) 65 - 99 mg/dL INTERFACE [...] and non- Americans is available on the [facility] Intranet at: [email or web address] Select: Lab Policies and Procedures Select: Reference Ranges - GFR 05/09/2007 10:2 0 AM PAPER MACHINE BACKTENDER Lumavita CHEMISTRY ORDERABLES Edited Performing Organization Address [facility] de Phone Number INTERFACE SYSTEM Refer to clinic/hospital department * (ABNORMAL) LIPID PANEL (05/09/2007 10:20 AM PAPER MACHINE BACKTENDER) CHOLESTEROL 200(H) 100 - 199 mg/dL INTERFACE SYSTEM TRIGLYCERIDE 299(H) 10 - 149 mg/dL INTERFACE SYSTEM HDL 46 40 - 59 mg/dL INTERFACE SYSTEM CHOL/HDL RATIO 4.3 2.0 - 5.0 INTER FACE SYSTEM LDL CALCULATED 94 <=99 mg/dL INTERFACE SYSTEM LIPID PANEL COMMENT See Below INTERFACE SYSTEM Comment: The adult ATP and pediatric NCEP classifications for lipids are available on the [facility] Intranet at: [email or web address] Select: Lab Policies and Procedures,Current Select: Lipid Panel Interpretation 05/09/2007 10:2 0 AM PAPER MACHINE BACKTENDER Pilaipun SaengsaSyracuse Universityan CHEMISTRY ORDERABLES Edited Performing Organization Address City/[facility]/ZIP Co de Phone Number INTERFACE SYSTEM Refer to clinic/hospital department documented in this encounter Visit Diagnoses Diagnosis Type II or unspecified type diabetes mellitus without mention of complication, uncontrolled- Primary documented in this encounter Care Teams Retort Operator Relationship Specialty Start Date End Date Lino Sarah MD NO ADDRESS ON FILE PCP - General 11/29/07 documented as of this encounter
--- OUTSIDE RECORDS SUMMARY | 2025-03-08 16:20 | XMS_ITS | Encounter Summary ---
Author Organization [facility] Address [address] [place] [address] Care Team Providers Care Fur Ironer Name Role Phone Lino Sarah MD Primary Care Provider Un available Encounter Details Date Type Department Care Team (Late st Contact Info) Description 02/06/2007 Outpatient Historical [facility] Internal Medicine [place] [address] [address] [place] [address] MargothsaLino aviles Cough (Primary Dx) Social History Tobacco Use Types Packs/Day Years Used Date Smoking Tobacco: Never Assessed Sex and Gender Information Value Date Recorded Sex Assigned at Not on file Legal Sex Male 3:27 AM CLERICAL METHODS ANALYST Gender Identity Not on file Sexual Orientation [...] mg/dL INTERFACE SYSTEM 02/06/2007 9:55 AM CDT Roadnetfernanda DavisFoundshopping.comrakesh CHEMISTRY ORDERABLES Edited Performing Organization Address City/State/[facility] Co de Phone Number INTERFACE SYSTEM Refer to clinic/hospital department * TSH (02/06/2007 9:55 AM CDT) TSH 2.22 0.27 - 4.20 uU/mL INTERFACE SYSTEM 02/06/2007 9:55 AM CDT [facility] Hospital[facility]anda Lirangsarakesh CHEMISTRY ORDERABLES Edited Performing Organization Address [facility] Co de Phone Number INTERFACE SYSTEM Refer [...] on the [facility] Intranet at: [email or web address] Select: Lab Policies and Procedures Select: Reference Ranges - GFR CALCIUM 10.6(H) 8.4 - 10.2 mg/dL INTERFACE SYSTEM Comment:Verified by repeat a nalysis. 02/06/2007 9:55 AM CDT Kalliebrindafernanda Diaz CHEMISTRY ORDERABLES Edited Performing Organization Address [facility] Phone Number INTERFACE SYSTEM Refer to clinic/hospital [...] on the [facility] Intranet at: [email or web address] Select: Lab Policies and Procedures Select: Reference Ranges - Lipids 02/06/2007 9:55 AM CDT us Lino Diaz CHEMISTRY ORDERABLES Edited Performing Organization Address City/[facility] de Phone Number INTERFACE SYSTEM Refer to clinic/hospital department documented in this encounter Visit Diagnoses Diagnosis Cough- Primary documented in this encounter Care Teams Fur Ironer Relationship Specialty Start Date End Date Lino Sarah MD NO ADDRESS ON FILE PCP - General 11/29/07 documented as of this encounter
--- OUTSIDE RECORDS SUMMARY | 2025-03-08 16:20 | XMS_ITS | Encounter Summary ---
Author Organization [facility] Address 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
--- OUTSIDE RECORDS SUMMARY | 2025-03-08 16:20 | XMS_ITS | Encounter Summary ---
Author Organization [facility] Address [address] [place] [address] Care Team Providers Care Medical Claims Representative Name Role Phone Lino Sarah MD Primary Care Provider Un available Encounter Details Date Type Department Care Team (Latest Contact Info) Description 11/20/2007 Outpatient Historical [facility] Internal Medicine [place] [address] [facility] [address] [place] [address] Lino Diaz DM w/o Complication Type II, Uncontrolled Social History Tobacco Use Types Packs/Day Years Used Date Smoking Tobacco: Never Assessed Sex and Gender Information Value Date Recorded Sex Assigned at Not on file Legal Sex Male 3:27 AM CARDIOVASCULAR TECH Gender Identity Not on file Sexual Orientation [...] CDT) HDL 53 40 - 59 mg/dL [facility] CHOLESTEROL 149 100 - 199 mg/dL [facility] CHOL/HDL RATIO 2.8 2.0 - 5.0 [facility] TRIGLYCERIDE 188(H) 10 - 149 mg/dL [facility] LDL CALCULATED 58 <=99 mg/dL [facility] LIPID PANEL COMMENT See Below [facility] Comment: The adult ATP and pediatric NCEP classifications for lipids are available on the [facility] Intranet at: [email or web address] Select: Lab Policies and Procedures,Current Select: Lipid Panel Interpretation Blood specimen (specimen) 11/20/2007 10:37 AM CDT 11/20/2007 12:28 PM CDT Pilaipun BilleosaZarthCode CHEMISTRY ORDERABLES Edited Performing Organization Address City/[facility]/ZIP Co de Phone Number [facility] CLIA# [id number] [address] [place] [address] * (ABNORMAL) HEMOGLOBIN A1C (11/20/2007 10:37 AM CDT) HEMOGLOBIN A1C 7.6(H) 4.1 - 6.1 % of Hgb [facility] GLUCOSE, MEAN BLOOD 193 mg/dL [facility] Blood specimen (specimen) 11/20/2007 10:37 AM CDT 11/20/2007 12:28 PM CDT Pilaip[place] Saengsamran CHEMISTRY ORDERABLES Final Result [facility] CLIA# [id number] [address] [place] [address] * TSH (11/20/2007 10:37 AM CDT) TSH 2.07 0.27 - 4.20 uU/mL [facility] Blood specimen (specimen) 11/20/2007 10:37 AM CDT 11/20/2007 12:28 PM CDT MyRepublicfernanda Beyond CompliancechiragZarthCoderakesh CHEMISTRY ORDERABLES Edited [facility] CLIA# [id number] [address] [place] [address] * PSA MEDICARE SCREEN (11/20/2007 10:37 AM CDT) PSA, SCREEN 0.5 0.0 - 4.0 ng/mL [facility] Comment:Performed on Arkmicro70 System Blood specimen (specimen) 11/20/2007 10:37 AM CDT 11/20/2007 12:28 PM CDT MyRepublicfernanda DavisZarthCoderakesh CHEMISTRY ORDERABLES COM Ed ited Performing Organization Address City/[facility]/ZIP Co de Phone Number [facility] CLIA# [id number] [address] [place] [address] * (ABNORMAL) COMPREHENSIVE METABOLIC PANEL (11/20/2007 10:37 AM CDT) CO2 22 22 - 30 mmol/L [facility] TOTAL PROTEIN 6.9 6.3 - 8.6 g/dL [facility] POTASSIUM 4.9 3.5 - 4.9 mmol/L [facility] GLUCOSE 150(H) 65 - 99 mg/dL [facility] AST 21 12 - 38 U/L [facility] BUN 17 6 - 20 mg/dL [facility] CALCIUM 10.6(H) 8.4 - 10.2 mg/dL [facility] CHLORIDE 106 96 - 108 mmol/L [facility] ALBUMIN 4.5 3.4 - 4.8 g/dL [facility] CREATININE 0.86 0.67 - 1.17 mg/dL [facility] SODIUM 139 135 - 145 mmol/L [facility] ALT 18 0 - 41 U/L [facility] ALKALINE PHOSPHATASE 69 40 - 129 U/L [facility] BILIRUBIN TOTAL 0.8 0.2 - 1.0 mg/dL [facility] GFR, >60 >=60 mL/min/1. 7 sq meter [facility] GFR >60 >=60 mL/min/1. 7 sq meter [facility] Comment: Modification of Diet in Renal Disease (MDRD) study formula. Estimated GFR rate interpretative information for both Americans and non- Americans is available on the [facility] Intranet at: [email or web address] Select: Lab Policies and Procedures Select: Reference Ranges - GFR Blood specimen (specimen) 11/20/2007 10:37 AM CDT 11/20/2007 12:28 PM CDT Lino Diaz CHEMISTRY ORDERABLES Edited [facility] CLIA# [id number] [address] [place] [address] documented in this encounter Visit Diagnoses Diagnosis Type II or unspecified type diabetes mellitus without mention of complication, uncontrolled documented in this encounter Care Teams Medical Claims Representative Relationship Specialty Start Date End Date Lino Sarah MD NO ADDRESS ON FILE PCP - General 11/29/07 documented as of this encounter
--- OUTSIDE RECORDS SUMMARY | 2025-03-08 16:20 | XMS_ITS | Encounter Summary ---
Author Organization [facility] Address [address] [place] [address] Care Team Providers Care Plant Electrical Engineer Name Role Phone Lino Sarah MD Primary Care Provider Un available Encounter Details Date Type Department Care Team (Late st Contact Info) Description 02/01/2007 Orders Only [facility] [address] [place] [address] Bobby Choe MD [address] [place] [address] Social History Tobacco Use Types Packs/Day Years Used Date Smoking Tobacco: Never Assessed Sex and Gender Information Value Date Recorded Sex Assigned at Not on file Legal Sex Male 3:27 AM STATISTICAL ENGINEER Gender Identity Not on file Sexual Orientation Not on file documented as of this encounter Plan of Treatment Not on file documented as of this encounter Visit Diagnoses Not on filedocumented in this encounter Care Teams Plant Electrical Engineer Relationship Specialty Start Date End Date Lino Sarah MD NO ADDRESS ON FILE PCP - General 11/29/07 documented as of this encounter
--- OUTSIDE RECORDS SUMMARY | 2025-03-08 16:20 | XMS_ITS | Encounter Summary ---
Author Organization [facility] Address [address] [place] [address] Care Team Providers Care Foreclosure Field Inspector Name Role Phone Lino Sarah MD Primary Care Provider Un available Encounter Details Date Type Department Care Team (Late st Contact Info) Description 11/20/2007 Outpatient Historical [facility] Internal Medicine [place] [address] [address] [facility] [address] [place] [phone] Lino Carrillo ms, MD Social History Tobacco Use Types Packs/Day Years Used Date Smoking Tobacco: Never Assessed Sex and Gender Information Value Date Recorded Sex Assigned at Not on file Legal Sex Male 3:27 AM PROOFREADER Gender Identity Not on file Sexual Orientation Not on file documented as of this encounter Plan of Treatment Not on file documented as of this encounter Visit Diagnoses Not on filedocumented in this encounter Care Teams Foreclosure Field Inspector Relationship Specialty Start Date End Date Lino Sarah MD NO ADDRESS ON FILE PCP - General 11/29/07 documented as of this encounter
--- OUTSIDE RECORDS SUMMARY | 2025-03-08 16:20 | XMS_ITS | Encounter Summary ---
Author Organization [facility] [employer] Address [address] Holder: Epic Prelude [place]T [place] [address] Care Team Providers Care Business Unit Controller Name Role Phone Lino Sarah MD Primary Care Provider Un available Encounter Details Date Type Department Care Team (Latest Contact Info) Description 09/01/2005 Orders Only Lino Henderson MD Social History Tobacco Use Types Packs/Day Years Used Date Smoking Tobacco: Never Assessed Sex and Gender Information Value Date Recorded Sex Assigned at Not on file Legal Sex Male 3:27 AM CABLE COVERER Gender Identity Not on file Sexual Orientation Not on file documented as of this encounter Progress Notes * Interface, Prasanth Stl Conv Transcriptions - 04/11/2008 4:53 PM CDT WEIGHT: 251lbs BLOOD PRESSURE: 100/80 Right Arm Sitting TEMPERATURE: 96.1??f Oral PULSE: 76 Right Radial, Regular RESPIRATIONS: 18 HEIGHT: [id number] NURSE NAME: Lynsey Barber S ALLERGIES: No [...] are within normal limits. NEUROLOGIC: CRANIAL NERVES: coin machine collector II-XII grossly intact. PSYCHIATRIC: Judgment appropriate. Oriented. [...] to be made. LAB ORDERS: Order number: [id number] Test Ordered: COMPREHENSIVE METABOLIC PANEL 37584 Order number: [id number] Test Ordered: HEMOGLOBIN A1c 496 Order number: [id number] Test Ordered: LIPID PANEL 7600 Order number: [id number] Test Ordered: MICROALBUMIN/CREATININE RATIO, RANDOM URINE 6517 Order number: [id number] Test Ordered: PSA 5363 Order number: [id number] Test Ordered: TSH 899 272.4-HYPERLIPIDEMIA ASSESSMENT: Will [...] SPECIALTY REFERRAL: DERMATOLOGY Dr. Bethel Joy ph: [phone] fax: [phone]. RETURN VISIT : Patient instructed to return in a few months. Electronically Signed by: Lino Henderson MD on Thursday, September 01, 2005 Electronically Signed by: Bobby Choe MD on Tuesday, September 13, 2005 * Patric Dabo Health Transcriptions - 04/11/2008 4:48 PM CDT TIME:01:52 pm PATIENT`S HOME PHONE: PATIENT`S WORK PHONE: PATIENT`S INSURANCE: [facility] WHO TOOK THE CALL: Ciera Kim J GENERAL INFORMATION PATIENT STATUS: Established Patient. PCP: ebony. ALTERNATIVE PHONE NUMBER: [phone] WHO CALLED: Patient`s spouse called. SECTION 1: REQUESTED ACTION marnie 09/01/05 at 01:53 pm: SPECIALTY REFERRAL: DERMATOLOGY Dr. Bethel Joy ph: [phone] fax: [phone]. [address] Appoint on September [...] on filedocumented in this encounter Care Teams Business Unit Controller Relationship Specialty Start Date End Date Lino Sarah MD NO ADDRESS ON FILE PCP - General 11/29/07 documented as of this encounter
--- OUTSIDE RECORDS SUMMARY | 2025-03-08 16:20 | XMS_ITS | Encounter Summary ---
Author Organization [facility] Address [address] [place] [address] Care Team Providers Care Barrel Assembler Helper Name Role Phone Lino Sarah MD Primary Care Provider Un available Encounter Details Date Type Department Care Team (Late st Contact Info) Description 03/24/2007 Orders Only [facility] [address] [place] [address] Bobby Choe MD [address] [place] [address] Social History Tobacco Use Types Packs/Day Years Used Date Smoking Tobacco: Never Assessed Sex and Gender Information Value Date Recorded Sex Assigned at Not on file Legal Sex Male 3:27 AM TOE POUNDER Gender Identity Not on file Sexual Orientation Not on file documented as of this encounter Plan of Treatment Not on file documented as of this encounter Visit Diagnoses Not on filedocumented in this encounter Care Teams Barrel Assembler Helper Relationship Specialty Start Date End Date Lino Sarah MD NO ADDRESS ON FILE PCP - General 11/29/07 documented as of this encounter
--- OUTSIDE RECORDS SUMMARY | 2025-03-08 16:20 | XMS_ITS | Encounter Summary ---
Author Organization [facility] Address [address] [place] [address] Care Team Providers Care Rivet Heater Name Role Phone Lino Saarh MD Primary Care Provider Un available Encounter Details Date Type Department Care Team (Late st Contact Info) Description 12/08/2005 Outpatient Historical [facility] Internal Medicine [place] [address] [facility] [address] [place] [phone] Bobby Choe MD [address] [place] [address] Social History Tobacco Use Types Packs/Day Years Used Date Smoking Tobacco: Never Assessed Sex and Gender Information Value Date Recorded Sex Assigned at Not on file 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
--- OUTSIDE RECORDS SUMMARY | 2025-03-08 16:20 | XMS_ITS | Encounter Summary ---
Author Organization [employer] Address [address] [place] [address] Care Team Providers Care Supervisor Mold Cleaning And Storage Name Role Phone Lino Sarah MD Primary [...] on file Legal Sex Male 3:27 AM SECURITY ATTENDANT Gender Identity Not on file Sexual Orientation Not on file documented as of this encounter Plan of Treatment Not on file documented as of this encounter Procedures Procedure Name Priority Date/Time Associated Diagnosis Comments PSA MEDICARE SCREEN Routine 09/01/2005 1 0:11 AM SECURITY ATTENDANT TSH Routine 09/01/2005 10:11 AM SECURITY ATTENDANT HEMOGLOBIN A1C Routine 09/01/2005 10:11 AM SECURITY ATTENDANT LIPID PANEL Routine 09/01/2005 10:11 AM SECURITY ATTENDANT COMPREHENSIVE METABOLIC PANEL Routine 09/01/2005 10:11 AM SECURITY ATTENDANT documented in this encounter Results * TSH (09/01/2005 10:11 AM SECURITY ATTENDANT) TSH 2.10 0.27 - 4.20 uU/mL INTERFACE SYSTEM 09/01/2005 10:1 1 AM SECURITY ATTENDANT us Lino Sarah MD CHEMISTRY ORDERABLES Kimberly l Result INTERFACE SYSTEM Refer to clinic/hospital department * (ABNORMAL) LIPID PANEL (09/01/2005 10:11 AM SECURITY ATTENDANT) LIPID PANEL COMMENT See below INTERFACE SYSTEM [...] for risk classifications. 09/01/2005 10:1 1 AM SECURITY ATTENDANT us Lino Sarah MD CHEMISTRY ORDERABLES Kimberly l Result INTERFACE SYSTEM Refer to clinic/hospital department * PSA MEDICARE SCREEN (09/01/2005 10:11 AM SECURITY ATTENDANT) PSA, SCREEN 0.4 0.0 - 4.0 ng/mL INTERFACE SYSTEM Comment:Performed on [employer] System 09/01/2005 10:1 1 AM SECURITY ATTENDANT us Lino Sarah MD CHEMISTRY ORDERABLES COM Final Result Performing Organization Address [facility] Phone Number INTERFACE SYSTEM Refer to clinic/hospital department * (ABNORMAL) HEMOGLOBIN A1C (09/01/2005 10:11 AM SECURITY ATTENDANT) HEMOGLOBIN A1C 10.1(H) 3.9 - 6.1 % of Hgb INTERFACE SYSTEM GLUCOSE, MEAN BLOOD 250 mg/dL INTERFACE SYSTEM 09/01/2005 10:1 1 AM SECURITY ATTENDANT us Lino Sarah MD CHEMISTRY ORDERABLES Kimberly l Result Performing Organization Address [facility] Phone Number INTERFACE SYSTEM Refer to clinic/hospital department * (ABNORMAL) COMPREHENSIVE METABOLIC PANEL (09/01/2005 10:11 AM SECURITY ATTENDANT) GLUCOSE 256(H) 65 - 109 mg/dL INTERFACE [...] repeat a nalysis. 09/01/2005 10:1 1 AM SECURITY ATTENDANT us Lino Sarah MD CHEMISTRY ORDERABLES Kimberly l Result Performing Organization Address [facility] Phone Number INTERFACE SYSTEM Refer to clinic/hospital department documented in this encounter Visit Diagnoses Diagnosis Type II or unspecified type diabetes mellitus without mention of complication, uncontrolled- Primary documented in this encounter Care Teams Supervisor Mold Cleaning And Storage Relationship Specialty Start Date End Date Lino Sarah MD NO ADDRESS ON FILE PCP - General 11/29/07 documented as of this encounter
--- OUTSIDE RECORDS SUMMARY | 2025-03-08 16:20 | XMS_ITS | Encounter Summary ---
Author Organization [employer] Address [address] [place] [address] Care Team Providers Care Risk Assessment Analyst Name Role Phone Lino Sarah MD Primary Care Provider Un available Encounter Details Date Type Department Care Team (Late st Contact Info) Description 12/14/2006 Orders Only [facility] 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
--- OUTSIDE RECORDS SUMMARY | 2025-03-08 16:20 | XMS_ITS | Encounter Summary ---
Author Organization [employer] Address 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 Gender Identity Not on file Sexual Orientation Not on file documented as of this encounter Plan of Treatment Not on file documented as of this encounter Procedures Procedure Name Priority Date/Time Associated Diagnosis Comments POC GLUCOSE Routine 08/11/2006 7:33 AM TUBE BENDING MACHINE OPERATOR documented in this encounter Results * (ABNORMAL) POC GLUCOSE (08/11/2006 7:33 AM TUBE BENDING MACHINE OPERATOR) GLUCOSE POC 137(H) 65 - 99 mg/dL INTERFACE SYSTEM 08/11/2006 7:33 AM TUBE BENDING MACHINE OPERATOR us Major Sarah MD POINT OF CARE TESTING Edited INTERFACE SYSTEM Refer to clinic/hospital department documented in this encounter Visit Diagnoses Diagnosis Diverticulosis of colon (without mention of hemorrhage)- Primary documented in this encounter Care Teams Stock Mixer Relationship Specialty Start Date End Date Lino Sarah MD NO ADDRESS ON FILE PCP - General 5/28/08 documented as of this encounter
--- OUTSIDE RECORDS SUMMARY | 2025-03-08 16:20 | XMS_ITS | Encounter Summary ---
Author Organization [employer] Address [address] [place] [address] Care Team Providers Care Boil Off Worker Name Role Phone Lino Sarah MD Primary Care Provider Un available Encounter Details Date Type Department Care Team (Late st Contact Info) Description 10/13/2006 Orders Only [facility] Diabetic Retinal Scanning Center 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
--- OUTSIDE RECORDS SUMMARY | 2025-03-08 16:20 | XMS_ITS | Encounter Summary ---
Author Organization [facility] Address [address] 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 PCP: ebony. WHO CALLED: Pharmacy called. PHARMACY NUMBER: [phone] SECTION 1: REQUESTED ACTION marnie 02/01/06 at [...] on filedocumented in this encounter Care Teams Guest Services Officer Relationship Specialty Start Date End Date Lino Sarah MD NO ADDRESS ON FILE PCP - General 11/29/07 documented as of this encounter
--- OUTSIDE RECORDS SUMMARY | 2025-03-08 16:20 | XMS_ITS | Encounter Summary ---
Author Organization [employer] Address 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 LEAD Gender Identity Not on file Sexual Orientation [...] SYSTEM 03/01/2007 12:2 5 PM CDT Result [facility] Nataliia Burnham MD HEMATOLOGY ORDERABLES E dited Performing Organization Address City/[facility] de Phone Number INTERFACE SYSTEM [...] HEMATOLOGY ORDERABLES E dited Performing Organization Address City/[facility] de Phone Number INTERFACE SYSTEM [...] and non- Americans is available on the [facility] Intranet at: [email or web address] Select: Lab Policies and Procedures Select: Reference [...] patients with mechanical heart valves or post VA. Pediatric (12 years and under): 1.5 - [...] Primary documented in this encounter Care Teams Blending Technician Relationship Specialty Start Date End Date Lino Saarh MD NO ADDRESS ON FILE PCP - General 11/29/07 documented as of this encounter
--- OUTSIDE RECORDS SUMMARY | 2025-03-08 16:20 | XMS_ITS | Encounter Summary ---
Author Organization [employer] Address [address] [place] [address] Care Team Providers Care Kiln Door Repairer Name Role Phone Lino Sarah MD Primary Care Provider Un available Encounter Details Date Type Department Care Team (Late st Contact Info) Description 05/09/2007 Orders Only [facility] Diabetic Retinal Scanning Center 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
--- OUTSIDE RECORDS SUMMARY | 2025-03-08 16:20 | XMS_ITS | Encounter Summary ---
Author Organization [facility] Address [address] [place] [address] Care Team Providers Care Supervisor Steno Pool Name Role Phone Lino Sarah MD Primary Care Provider Un available Encounter Details Date Type Department Care Team (Late st Contact Info) Description 10/08/2005 Outpatient Historical [facility] Internal Medicine Quinn [address] [place] [address] Bobby Choe MD [address] [place] [address] Social History Tobacco Use Types Packs/Day Years Used Date Smoking Tobacco: Never Assessed Sex and Gender Information Value Date Recorded Sex Assigned at Not on file 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
--- OUTSIDE RECORDS SUMMARY | 2025-03-08 16:21 | XMS_ITS | Encounter Summary ---
Author Organization [employer] Address [address] [place] [address] Care Team Providers Care Mycologist Name Role Phone Lino Sarah MD Primary Care Provider Un available Encounter Details Date Type Department Care Team (Late st Contact Info) Description 07/28/2001 Outpatient Historical [facility] Major Sarah MD [address] [place] [address] [place] [address] BENIGN NEOPLASM LG BOWEL (Primary Dx) Social History Tobacco Use Types Packs/Day Years Used Date Smoking Tobacco: Never Assessed Sex and Gender Information Value Date Recorded Sex Assigned at Not on file Legal Sex Male 3:27 AM CONTACT CENTER REP Gender Identity Not on file Sexual Orientation Not on file documented as of this encounter Plan of Treatment Not on file documented as of this encounter Visit Diagnoses Diagnosis Benign neoplasm of colon- Primary documented in this encounter Care Teams Mycologist Relationship Specialty Start Date End Date Lino Sarah MD NO ADDRESS ON FILE PCP - General 11/29/07 documented as of this encounter
--- OUTSIDE RECORDS SUMMARY | 2025-03-08 16:21 | XMS_ITS | Encounter Summary ---
Author Organization [facility] Healthcare Address [address] [place] [address] Care Team Providers Care Ribbon Lapper Tender Name Role Phone Deann Sanchez MD, Michele Garcia Primary Care Provide r Arvind Anthony OD Unavailable Jorgito Barahona MD Unavailable Philippe Cruz MD Unavailable Encounter Details Date Type Department Care Team (Late st Contact Info) Description 10/31/2024 Orders Only [facility] Health Information Management [address] [place] [address] Scanning, Provider Social History Tobacco Use [...] on file Legal Sex Male 12:27 AM SUPPLY CONTROLLER Gender Identity Male 06/30/2021 2:21 PM SUPPLY CONTROLLER Sexual Orientation Not on file documented as [...] on filedocumented in this encounter Care Teams Ribbon Lapper Tender Relationship Specialty Start Date End Date Michele Zacarias Jr., MD [address] [place] [address] PCP - General Internal Medicine 10/21/22 Arvind Anthony OD [address] [address] Optometry 10/21/22 Jorgito Barahona MD [address] [address] Referring Physician Dermatology 10/21/22 Philippe Cruz MD [address] [place] [address] Consulting Physician Cardiology 10/21/22 documented as of this encounter
--- OUTSIDE RECORDS SUMMARY | 2025-03-08 16:21 | XMS_ITS | Encounter Summary ---
Author Organization [employer] Address 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 Gender Identity Not on file Sexual Orientation [...] ORDERABLES Final Res ult Performing Organization Address [facility] de Phone Number INTERFACE SYSTEM Refer to [...] ORDERABLES Final Res ult Performing Organization Address [facility] Co de Phone Number INTERFACE SYSTEM Refer to clinic/hospital department * PSA (10/27/2004 11:00 AM CDT) PSA 0.5 0.0 - 4.0 ng/mL INTERFACE SYSTEM Comment:Performed on [employer]aly[employer] E170 System 10/27/2004 11:0 0 AM CDT us Kaz Darnell MD CHEMISTRY ORDERABLES Final Resu lt Performing Organization Address [facility] Phone Number INTERFACE SYSTEM Refer to clinic/hospital department * LIPASE (10/27/2004 11:00 AM CDT) LIPASE 23 13 - 60 U/L INTERFAC E SYSTEM 10/27/2004 11:0 0 AM CDT us Kaz Darnell MD CHEMISTRY ORDERABLES Final Resu lt Performing Organization Address [facility] Phone Number INTERFACE SYSTEM Refer to clinic/hospital department * (ABNORMAL) HEMOGLOBIN A1C (10/27/2004 11:00 AM CDT) HEMOGLOBIN A1C 7.9(H) 3.9 - 6.1 % of Hgb INTERFACE SYSTEM Comment: Note: Analyzer upgraded from Cardize Variant to Variant II. No change in methodology. GLUCOSE, MEAN BLOOD 177 mg/dL INTERFACE SYSTEM 10/27/2004 11:0 0 AM CDT us Kaz Darnell MD CHEMISTRY ORDERABLES Final Resu lt Performing Organization Address [facility] Phone Number INTERFACE SYSTEM Refer to clinic/hospital department * AMYLASE (10/27/2004 11:00 AM CDT) AMYLASE 51 28 - 100 U/L INTERFACE SYSTEM 10/27/2004 11:0 0 AM CDT Result Alexis Darnell MD CHEMISTRY ORDERABLES Final Resu lt Performing Organization Address City/[facility] Phone Number INTERFACE SYSTEM Refer [...] Primary documented in this encounter Care Teams Animal Cruelty Investigator Relationship Specialty Start Date End Date Lino Sarah MD NO ADDRESS ON FILE PCP - General 11/29/07 documented as of this encounter
--- OUTSIDE RECORDS SUMMARY | 2025-03-08 16:21 | XMS_ITS | Encounter Summary ---
Author Organization [facility] Healthcare Address [address] [place] [address] Care Team Providers Care Radio Repair Teacher Name Role Phone Deann Sanchez MD, Michele Garcia Primary Care Provide r Arvind Anthony OD Unavailable [phone] Jorgito Barahona MD Unavailable Philippe Cruz MD Unavailable Encounter Details Date Type Department Care Team (Late st Contact Info) Description 12/22/2024 Orders Only [facility] Health Information Management [address] [place] [address] Scanning, Provider Social History Tobacco Use [...] on file Legal Sex Male 12:27 AM COTTON WEIGHER Gender Identity Male 06/30/2021 2:21 PM COTTON WEIGHER Sexual Orientation Not on file documented as of this encounter Plan of Treatment Not on file documented as of this encounter Procedures Procedure Name Priority Date/Time Associated Diagnosis Comments SCAN - LABS 12/22/2024 documented in this encounter Results * SCAN - LABS (12/22/2024) Provider Scanning Final Result documented in this encounter Visit Diagnoses Not on filedocumented in this encounter Care Teams Radio Repair Teacher Relationship Specialty Start Date End Date Michele Zacarias Jr., MD [address] [place] [address] PCP - General Internal Medicine 10/21/22 Arvind Anthony OD [address] [id number] Optometry 10/21/22 Jorgito Barahona MD [address] [id number] Referring Physician Dermatology 10/21/22 Philippe Cruz MD [address], [address] [place] [address] Consulting Physician Cardiology 10/21/22 documented as of this encounter
--- OUTSIDE RECORDS SUMMARY | 2025-03-08 16:21 | XMS_ITS | Encounter Summary ---
Author Organization [facility] Address [address] [place] [address] Care Team Providers Care Furnace Loader Name Role Phone Lino Sarah MD Primary Care Provider Un available Encounter Details Date Type Department Care Team (Late st Contact Info) Description 10/27/2004 Outpatient Historical [facility] Internal Medicine [facility] [address] [place] [address] [place] [address] [facility] [address] [address] Social History Tobacco Use Types Packs/Day Years Used Date Smoking Tobacco: Never Assessed Sex and Gender Information Value Date Recorded Sex Assigned at Not on file 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
--- OUTSIDE RECORDS SUMMARY | 2025-03-08 16:21 | XMS_ITS | Encounter Summary ---
Author Organization [employer] Address [address] [place] [address] Care Team Providers Care Technical Support Professional Name Role Phone Lino Sarah MD Primary Care Provider Un available Encounter Details Date Type Department Care Team (Late st Contact Info) Description 07/26/2005 Orders Only [facility] Diabetic Retinal Scanning Center 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
--- OUTSIDE RECORDS SUMMARY | 2025-03-08 16:21 | XMS_ITS | Encounter Summary ---
Author Organization [employer] Address 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
--- OUTSIDE RECORDS SUMMARY | 2025-03-08 16:21 | XMS_ITS | Encounter Summary ---
Author Organization [employer] Address [address] [place] [address] Care Team Providers Care Cuprous Chloride Operator Name Role Phone Lino Sarah MD Primary Care Provider Un available Encounter Details Date Type Department Care Team (Late st Contact Info) Description 07/11/2007 Orders Only [facility] Diabetic Retinal Scanning Center 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
--- OUTSIDE RECORDS SUMMARY | 2025-03-08 16:21 | XMS_ITS | Encounter Summary ---
Author Organization [employer] Address [address] [place] [address] Care Team Providers Care Chief Revenue Officer Name Role Phone Lino Sarah MD Primary Care Provider Un available Encounter Details Date Type Department Care Team (Late st Contact Info) Description 07/02/2004 Outpatient Historical [facility] [address] Kaz Darnell MD [address] [place] [phone] DIABETES MELLITUS TYPE II-UNCOMPL (CMS/FORMERLY [facility]) (Primary Dx) Social History Tobacco Use Types Packs/Day Years Used Date Smoking Tobacco: Never Assessed Sex and Gender Information Value Date Recorded Sex Assigned at Not on file 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
--- OUTSIDE RECORDS SUMMARY | 2025-03-08 16:21 | XMS_ITS | Encounter Summary ---
Author Organization [employer] Address 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
--- OUTSIDE RECORDS SUMMARY | 2025-03-08 16:21 | XMS_ITS | Encounter Summary ---
Author Organization [facility] Address [address] [place] [address] Care Team Providers Care Tungsten Refiner Name Role Phone Lino Sarah MD Primary Care Provider Un available Encounter Details Date Type Department Care Team (Late st Contact Info) Description 11/13/2002 Outpatient Historical [facility] Internal Medicine [place] [address] [facility] [address] [place] [phone] [place] [address] [place] [address] Social History Tobacco Use Types Packs/Day Years Used Date Smoking Tobacco: Never Assessed Sex and Gender Information Value Date Recorded Sex Assigned at Not on file 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
--- OUTSIDE RECORDS SUMMARY | 2025-03-08 16:21 | XMS_ITS | Encounter Summary ---
Author Organization [facility] Address [address] [place] [address] Care Team Providers Care Inking Machine Tender Name Role Phone Lino Sarah MD Primary Care Provider Un available Encounter Details Date Type Department Care Team (Late st Contact Info) Description 08/17/2001 Outpatient Historical [facility] Internal Medicine [place] [address] [facility] [address] [place] [phone] [place] [address] [place] [address] Social History Tobacco Use Types Packs/Day Years Used Date Smoking Tobacco: Never Assessed Sex and Gender Information Value Date Recorded Sex Assigned at Not on file 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
--- OUTSIDE RECORDS SUMMARY | 2025-03-08 16:21 | XMS_ITS | Encounter Summary ---
Author Organization [facility] Address [address] [place] [address] Care Team Providers Care Silk Washing Machine Operator Name Role Phone Lino Sarah MD Primary Care Provider Un available Encounter Details Date Type Department Care Team (Late st Contact Info) Description 06/15/2007 Outpatient Historical [facility] Internal Medicine [place] [address] 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
--- OUTSIDE RECORDS SUMMARY | 2025-03-08 16:21 | XMS_ITS | Encounter Summary ---
Author Organization [facility] Address [address] [place] [address] Care Team Providers Care Health Insurance Specialist Name Role Phone Lino Sarah MD Primary Care Provider Un available Encounter Details Date Type Department Care Team (Late st Contact Info) Description 07/02/2004 Outpatient Historical [facility] Internal Medicine [facility] [address] [facility] [address] [place] [phone] [place] [address] [phone] Social History Tobacco Use Types Packs/Day Years Used Date Smoking Tobacco: Never Assessed Sex and Gender Information Value Date Recorded Sex Assigned at Not on file Legal Sex Male 3:27 AM NETWORK 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
--- OUTSIDE RECORDS SUMMARY | 2025-03-08 16:21 | XMS_ITS | Encounter Summary ---
Author Organization [facility] Address [address] [place] [address] Care Team Providers Care Enamel Burner Name Role Phone Lino Sarah MD Primary Care Provider Un available Encounter Details Date Type Department Care Team (Late st Contact Info) Description 07/20/[address] 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
--- OUTSIDE RECORDS SUMMARY | 2025-03-08 16:21 | XMS_ITS | Encounter Summary ---
Author Organization [employer] Address [address] [place] [address] Care Team Providers Care Lpn Or Medical Assistant Name Role Phone Lino Sarah MD Primary Care Provider Un available Encounter Details Date Type Department Care Team (Latest Contact Info) Description 07/10/2004 Outpatient Historical [facility], [address] Kaz Darnell MD [address] [place] [phone] HYPERCALCEMIA (Primary Dx) Social History Tobacco Use Types Packs/Day Years Used Date Smoking Tobacco: Never Assessed Sex and Gender Information Value Date Recorded Sex Assigned at Not on file Legal Sex Male 3:27 AM MATERIALS CLERK Gender Identity Not on file Sexual Orientation Not on file documented as of this encounter Plan of Treatment Not on file documented as of this encounter Procedures Procedure Name Priority Date/Time Associated Diagnosis Comments PHOSPHORUS Routine 07/10/2004 12:13 PM MATERIALS CLERK PTH INTACT Routine 07/10/2004 12:13 PM MATERIALS CLERK CALCIUM IONIZED Routine 07/10/2004 12:13 PM MATERIALS CLERK documented in this encounter Results * (ABNORMAL) CALCIUM IONIZED (07/10/2004 12:13 PM MATERIALS CLERK) CALCIUM IONIZED 5.44(H) 4.76 - 5.16 mg/dL INTERFACE SYSTEM 07/10/2004 12:1 3 PM MATERIALS CLERK us Kaz Darnell MD CHEMISTRY ORDERABLES Final Resu lt INTERFACE SYSTEM Refer to clinic/hospital department * (ABNORMAL) PTH INTACT (07/10/2004 12:13 PM MATERIALS CLERK) CALCIUM 10.6(H) 8.6 - 10.2 mg/dL INTERFACE SYSTEM PTH INTACT 114(H) 15 - 65 pg/mL INTERFACE SYSTEM 07/10/2004 12:1 3 PM MATERIALS CLERK Kaz Darnell MD CHEMISTRY ORDERABLES Final Resu Performing Organization Address [facility] Phone Number INTERFACE SYSTEM Refer to clinic/hospital department * PHOSPHORUS (07/10/2004 12:13 PM MATERIALS CLERK) PHOSPHORUS 2.5 2.5 - 4.5 mg/dL INTERFACE SYSTEM 07/10/2004 12:1 3 PM MATERIALS CLERK us Kaz Darnell MD CHEMISTRY ORDERABLES Final Resu Performing Organization Address [facility] Phone Number INTERFACE SYSTEM Refer to clinic/hospital department documented in this encounter Visit Diagnoses Diagnosis Hypercalcemia- Primary documented in this encounter Care Teams Lpn Or Medical Assistant Relationship Specialty Start Date End Date Lino Sarah MD NO ADDRESS ON FILE PCP - General 11/29/07 documented as of this encounter
--- OUTSIDE RECORDS SUMMARY | 2025-03-08 16:21 | XMS_ITS | Encounter Summary ---
Author Organization [facility] Address [address] [place] [address] Care Team Providers Care Montessori Preschool Teacher Name Role Phone Lino Sarah MD Primary Care Provider Un available Encounter Details Date Type Department Care Team (Late st Contact Info) Description 01/13/[address] 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
--- OUTSIDE RECORDS SUMMARY | 2025-03-08 16:21 | XMS_ITS | Encounter Summary ---
Author Organization [employer] Address 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
--- OUTSIDE RECORDS SUMMARY | 2025-03-08 16:21 | XMS_ITS | Encounter Summary ---
Author Organization [facility] Healthcare Address [address] [place] [address] Care Team Providers Care Supervisor Riprap Placing Name Role Phone Deann Sanchez MD, Michele Garcia Primary Care Provide r Arvind Anthony OD Unavailable Jorgito Barahona MD Unavailable Philippe Cruz MD Unavailable Encounter Details Date Type Department Care Team (Late st Contact Info) Description 03/29/2024 Orders Only [facility] Health Information Management [address] [place] [phone] Scanning, Provider Social History Tobacco Use [...] on file Legal Sex Male 12:27 AM ACETYLENE TORCH BURNER Gender Identity Male 06/30/2021 2:21 PM ACETYLENE TORCH BURNER Sexual Orientation Not on file documented as of this encounter Plan of Treatment Not on file documented as of this encounter Procedures Procedure Name Priority Date/Time Associated Diagnosis Comments SCAN - LABS 03/29/2024 documented in this encounter Results * SCAN - LABS (03/29/2024) us Provider Scanning Final Result documented in this encounter Visit Diagnoses Not on filedocumented in this encounter Care Teams Supervisor Riprap Placing Relationship Specialty Start Date End Date Michele Zacarias Jr., MD [address] [place] [address] PCP - General Internal Medicine 10/21/22 Arvind Anthony OD [address] [id number] Optometry 10/21/22 Jorgito Barahona MD [address] [id number] Referring Physician Dermatology 10/21/22 Philippe Cruz MD [address] [address], [address] [place], [place] [phone] Consulting Physician Cardiology 10/21/22 documented as of this encounter
--- OUTSIDE RECORDS SUMMARY | 2025-03-08 16:21 | XMS_ITS | Encounter Summary ---
Author Organization [employer] Address [address] [facility] Attn: Epic Prelude ADT [place] [address] Care Team Providers Care Crimping Machine Operator For Metal Name Role Phone Lino Sarah MD Primary [...] on file Legal Sex Male 3:27 AM PATROL JUDGE Gender Identity Not on file Sexual Orientation Not on file documented as of this encounter Plan of Treatment Not on file documented as of this encounter Visit Diagnoses Not on filedocumented in this encounter Care Teams Crimping Machine Operator For Metal Relationship Specialty Start Date End Date Lino aSrah MD NO ADDRESS ON FILE PCP - General 11/29/07 documented as of this encounter
--- OUTSIDE RECORDS SUMMARY | 2025-03-08 16:21 | XMS_ITS | Encounter Summary ---
Author Organization [facility] Address [address] [place] [address] Care Team Providers Care Machine Repairer Name Role Phone Lino Sarah MD Primary Care Provider Un available Encounter Details Date Type Department Care Team (Late st Contact Info) Description 11/25/2003 Outpatient Historical [facility] Internal Medicine [place] [address] [facility] [address] [place] [phone] Bobby Choe MD [address] [place] [address] Social History Tobacco Use Types Packs/Day Years Used Date Smoking Tobacco: Never Assessed Sex and Gender Information Value Date Recorded Sex Assigned at Not on file Legal Sex Male 3:27 AM AWNING MAKER Gender Identity Not on file Sexual Orientation Not on file documented as of this encounter Plan of Treatment Not on file documented as of this encounter Visit Diagnoses Not on filedocumented in this encounter Care Teams Machine Repairer Relationship Specialty Start Date End Date Lino Sarah MD NO ADDRESS ON FILE PCP - General 11/29/07 documented as of this encounter
--- OUTSIDE RECORDS SUMMARY | 2025-03-08 16:21 | XMS_ITS | Encounter Summary ---
Author Organization [facility] Address [address] [place] [address] Care Team Providers Care Broadband Engineer Name Role Phone Lino Sarah MD Primary Care Provider Un available Encounter Details Date Type Department Care Team (Late st Contact Info) Description 12/31/1999 Outpatient Historical [facility] Internal Medicine [place] [address] [facility] [address] [place] [phone] [place] [address] [place] [address] Social History Tobacco Use Types Packs/Day Years Used Date Smoking Tobacco: Never Assessed Sex and Gender Information Value Date Recorded Sex Assigned at Not on file Legal Sex Male 3:27 AM FIRER RETORT Gender Identity Not on file Sexual Orientation Not on file documented as of this encounter Plan of Treatment Not on file documented as of this encounter Visit Diagnoses Not on filedocumented in this encounter Care Teams Broadband Engineer Relationship Specialty Start Date End Date Lino Sarah MD NO ADDRESS ON FILE PCP - General 11/29/07 documented as of this encounter
--- OUTSIDE RECORDS SUMMARY | 2025-03-08 16:21 | XMS_ITS | Encounter Summary ---
Author Organization [facility] Address [address] [place] [address] Care Team Providers Care Motor Power Connector Name Role Phone Lino Sarah MD Primary Care Provider Un available Encounter Details Date Type Department Care Team (Late st Contact Info) Description 08/27/1998 Outpatient Historical [facility] Internal Medicine [place] [address] [facility] [address] [place] [phone] [place] [address] [place] [address] Social History Tobacco Use Types Packs/Day Years Used Date Smoking Tobacco: Never Assessed Sex and Gender Information Value Date Recorded Sex Assigned at Not on file 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
--- OUTSIDE RECORDS SUMMARY | 2025-03-08 16:21 | XMS_ITS | Encounter Summary ---
Author Organization [facility] Healthcare Address [address] [place] [address] Care Team Providers Care Inside Tester Name Role Phone Deann Sanchez MD, Michele Garcia Primary Care Provide r Arvind Anthony OD Unavailable [phone] Jorgito Barahona MD Unavailable Philippe Cruz MD Unavailable Encounter Details Date Type Department Care Team (Late st Contact Info) Description 08/31/2024 Orders Only [facility] Health Information Management [address] [place] [address] Scanning, Provider Social History Tobacco Use [...] on file Legal Sex Male 12:27 AM CHIP PERSON Gender Identity Male 06/30/2021 2:21 PM CHIP PERSON Sexual Orientation Not on file documented as of this encounter Plan of Treatment Not on file documented as of this encounter Procedures Procedure Name Priority Date/Time Associated Diagnosis Comments SCAN - LABS 08/31/2024 documented in this encounter Results * SCAN - LABS (08/31/2024) us Provider Scanning Final Result documented in this encounter Visit Diagnoses Not on filedocumented in this encounter Care Teams Inside Tester Relationship Specialty Start Date End Date Michele Zacarias Jr., MD [address] [place] [address] PCP - General Internal Medicine 10/21/22 Arvind Anthony OD [address] [phone] Optometry 10/21/22 Jorgito Barahona MD [address] [phone] Referring Physician Dermatology 10/21/22 Philippe Cruz MD [address] [place] [address] [place] [address], [address] [place] [address] Consulting Physician Cardiology 10/21/22 documented as of this encounter
--- OUTSIDE RECORDS SUMMARY | 2025-03-08 16:21 | XMS_ITS | Encounter Summary ---
Author Organization [facility] Healthcare Address [address] [place] [address] Care Team Providers Care Head Of Sales And Marketing Name Role Phone Deann Sanchez MD, Michele Garcia Primary Care Provide r Arvind Anthony OD Unavailable Jorgito Barahona MD Unavailable Philippe Cruz MD Unavailable Encounter Details Date Type Department Care Team (Late st Contact Info) Description 11/29/2024 Orders Only [facility] Health Information Management [address] [place] [phone] Scanning, Provider Social History Tobacco Use [...] on file Legal Sex Male 12:27 AM SENIOR MARKET INTELLIGENCE CONSULTANT Gender Identity Male 06/30/2021 2:21 PM SENIOR MARKET INTELLIGENCE CONSULTANT Sexual Orientation Not on file documented as of this encounter Plan of Treatment Not on file documented as of this encounter Procedures Procedure Name Priority Date/Time Associated Diagnosis Comments SCAN - LABS 11/29/2024 documented in this encounter Results * SCAN - LABS (11/29/2024) Provider Scanning Final Result documented in this encounter Visit Diagnoses Not on filedocumented in this encounter Care Teams Head Of Sales And Marketing Relationship Specialty Start Date End Date Michele Zacarias Jr., MD [address] [place] [phone] PCP - General Internal Medicine 10/21/22 Arvind Anthony OD [address] [phone] Optometry 10/21/22 Jorgito Barahona MD [address] [phone] Referring Physician Dermatology 10/21/22 Philippe Cruz MD [address], [address] [place] [address] Consulting Physician Cardiology 10/21/22 documented as of this encounter
--- OUTSIDE RECORDS SUMMARY | 2025-03-08 16:21 | XMS_ITS | Encounter Summary ---
Author Organization [facility] Address [address] [place] [address] Care Team Providers Care Tractor Trailer Mechanic Name Role Phone Lino Sarah MD Primary Care Provider Un available Encounter Details Date Type Department Care Team (Late st Contact Info) Description 10/28/1998 Outpatient Historical [facility] Internal Medicine [place] [address] [facility] [address] [place] [phone] [place] [address] [place] [address] Social History Tobacco Use Types Packs/Day Years Used Date Smoking Tobacco: Never Assessed Sex and Gender Information Value Date Recorded Sex Assigned at Not on file Legal Sex Male 3:27 AM SCREEN ROLLER Gender Identity Not on file Sexual Orientation Not on file documented as of this encounter Plan of Treatment Not on file documented as of this encounter Visit Diagnoses Not on filedocumented in this encounter Care Teams Tractor Trailer Mechanic Relationship Specialty Start Date End Date Lino Sarah MD NO ADDRESS ON FILE PCP - General 11/29/07 documented as of this encounter
--- OUTSIDE RECORDS SUMMARY | 2025-03-08 16:21 | XMS_ITS | Encounter Summary ---
Author Organization [employer] Address [address] [place] [address] Care Team Providers Care Banjo Repair Person Name Role Phone Lino Sarah MD Primary Care Provider Un available Encounter Details Date Type Department Care Team (Late st Contact Info) Description 08/15/2003 Outpatient Historical [place] [address] [place] [address] CERVICAL SPONDYLOSIS (Primary Dx) Social History Tobacco Use Types Packs/Day Years Used Date Smoking Tobacco: Never Assessed Sex and Gender Information Value Date Recorded Sex Assigned at Not on file Legal Sex Male 3:27 AM MERINGUER Gender Identity Not on file Sexual Orientation Not on file documented as of this encounter Plan of Treatment Not on file documented as of this encounter Visit Diagnoses Diagnosis Cervical spondylosis without myelopathy- Primary documented in this encounter Care Teams Banjo Repair Person Relationship Specialty Start Date End Date Lino Sarah MD NO ADDRESS ON FILE PCP - General 11/29/07 documented as of this encounter
--- OUTSIDE RECORDS SUMMARY | 2025-03-08 16:21 | XMS_ITS | Encounter Summary ---
Author Organization [employer] Address [address] [place] [address] Care Team Providers Care Supervisor Parking Lot Name Role Phone Lino Sarah MD Primary Care Provider Un available Encounter Details Date Type Department Care Team (Latest Contact Info) Description 03/30/1999 Outpatient Historical HIS [facility] Elvira Betancur MD [address] [place] [address] Dr WATSON [address] [place] [phone] Pure hypercholesterolemia (Primary Dx) Social History Tobacco Use Types Packs/Day Years Used Date Smoking Tobacco: Never Assessed Sex and Gender Information Value Date Recorded Sex Assigned at Not on file Legal Sex Male 3:27 AM FLOUR MIXER Gender Identity Not on file Sexual Orientation Not on file documented as of this encounter Plan of Treatment Not on file documented as of this encounter Visit Diagnoses Diagnosis Pure hypercholesterolemia- Primary documented in this encounter Care Teams Supervisor Parking Lot Relationship Specialty Start Date End Date Lino Sarah MD NO ADDRESS ON FILE PCP - General 11/29/07 documented as of this encounter
--- OUTSIDE RECORDS SUMMARY | 2025-03-08 16:21 | XMS_ITS | Encounter Summary ---
Author Organization [employer] Address [address] [place] [address] Care Team Providers Care Commercial Painter Name Role Phone Lino Sarah MD Primary Care Provider Un available Encounter Details Date Type Department Care Team (Late st Contact Info) Description 11/19/1998 Outpatient Historical HIS [facility] Elvira Betancur MD [address] [place] [address] [place] [address] Social History Tobacco Use Types Packs/Day Years Used Date Smoking Tobacco: Never Assessed Sex and Gender Information Value Date Recorded Sex Assigned at Not on file Legal Sex Male 3:27 AM WASHTUB WORKER HELPER Gender Identity Not on file Sexual Orientation Not on file documented as of this encounter Plan of Treatment Not on file documented as of this encounter Visit Diagnoses Not on filedocumented in this encounter Care Teams Commercial Painter Relationship Specialty Start Date End Date Lino Sarah MD NO ADDRESS ON FILE PCP - General 11/29/07 documented as of this encounter
--- OUTSIDE RECORDS SUMMARY | 2025-03-08 16:21 | XMS_ITS | Encounter Summary ---
Author Organization [facility] Address [address] [place] [address] Care Team Providers Care Stove Cleaner Name Role Phone Lino Sarah MD Primary Care Provider Un available Encounter Details Date Type Department Care Team (Late st Contact Info) Description 05/09/2007 Outpatient Historical [facility] Internal Medicine [place] [address] [facility] [address] [place] [phone] Lino Carrillo ms, MD Social History Tobacco Use Types Packs/Day Years Used Date Smoking Tobacco: Never Assessed Sex and Gender Information Value Date Recorded Sex Assigned at Not on file Legal Sex Male 3:27 AM ROLLER HELPER Gender Identity Not on file Sexual Orientation Not on file documented as of this encounter Plan of Treatment Not on file documented as of this encounter Visit Diagnoses Not on filedocumented in this encounter Care Teams Stove Cleaner Relationship Specialty Start Date End Date Lino Sarah MD NO ADDRESS ON FILE PCP - General 11/29/07 documented as of this encounter
--- OUTSIDE RECORDS SUMMARY | 2025-03-08 16:21 | XMS_ITS | Encounter Summary ---
Author Organization [facility] Address [address] [place] [address] Care Team Providers Care Biology Department Chair Name Role Phone Lino Sarah MD Primary Care Provider Un available Encounter Details Date Type Department Care Team (Late st Contact Info) Description 07/20/2001 Outpatient Historical [facility] Internal Medicine [place] [address] [facility] [address] [place] [phone] [place] [address] [place] [address] Social History Tobacco Use Types Packs/Day Years Used Date Smoking Tobacco: Never Assessed Sex and Gender Information Value Date Recorded Sex Assigned at Not on file Legal Sex Male 3:27 AM HOT BLAST WORKER Gender Identity Not on file Sexual Orientation Not on file documented as of this encounter Plan of Treatment Not on file documented as of this encounter Visit Diagnoses Not on filedocumented in this encounter Care Teams Biology Department Chair Relationship Specialty Start Date End Date Lino Sarah MD NO ADDRESS ON FILE PCP - General 11/29/07 documented as of this encounter
--- OUTSIDE RECORDS SUMMARY | 2025-03-08 16:21 | XMS_ITS | Encounter Summary ---
Author Organization [facility] Address [address] [place] [address] Care Team Providers Care Preparer Making Department Name Role Phone Lino Sarah MD Primary Care Provider Un available Encounter Details Date Type Department Care Team (Late st Contact Info) Description 06/15/2007 Outpatient Historical [facility] Internal Medicine [place] [address] [facility] [address] [place] [phone] Lino Carrillo ms, MD Social History Tobacco Use Types Packs/Day Years Used Date Smoking Tobacco: Never Assessed Sex and Gender Information Value Date Recorded Sex Assigned at Not on file Legal Sex Male 3:27 AM CLIENT ARCHITECT Gender Identity Not on file Sexual Orientation Not on file documented as of this encounter Last Filed Vital Signs Vital Sign Reading Time Taken Comments Blood Pressure 120/84 06/15/2007 9:45 AM CLIENT ARCHITECT Pulse 72 06/15/2007 9:45 AM CLIENT ARCHITECT Temperature 36.4 C (97.5 F) 06/15/2007 9:45 AM CLIENT ARCHITECT Respiratory Rate 18 06/15/2007 9:45 AM CLIENT ARCHITECT Oxygen Saturation - - Inhaled Oxygen Concentration - - Weight 112.9 kg (249 lb) 06/15/2007 9:45 AM CLIENT ARCHITECT Height 177.8 cm (5' 10) 06/15/2007 9:45 AM CLIENT ARCHITECT Body Mass Index 35.73 06/15/2007 9:45 AM CLIENT ARCHITECT documented in this encounter Plan of Treatment Not on file documented as of this encounter Visit Diagnoses Not on filedocumented in this encounter Care Teams Preparer Making Department Relationship Specialty Start Date End Date Lino Sarah MD NO ADDRESS ON FILE PCP - General 11/29/07 documented as of this encounter
--- OUTSIDE RECORDS SUMMARY | 2025-03-08 16:21 | XMS_ITS | Encounter Summary ---
Author Organization [facility] Address 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
--- OUTSIDE RECORDS SUMMARY | 2025-03-08 16:21 | XMS_ITS | Encounter Summary ---
Author Organization [employer] Address [address] [place] [address] Care Team Providers Care Heating Element Builder Name Role Phone Lino Sarah MD Primary Care Provider Un available Encounter Details Date Type Department Care Team (Late st Contact Info) Description 12/30/1998 Outpatient Historical HIS 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
--- OUTSIDE RECORDS SUMMARY | 2025-03-08 16:21 | XMS_ITS | Clinical Summary ---
Author Organization [employer] [facility] Address [address] [place] [address] Care Team Providers Care Brick Layer Name Role Phone Lino Sarah MD [...] Tb24 Take 1 Tab by mouth daily early interventionist. 30 6 8 Active blood sugar diagnostic [...] Coronary atherosclerosis of unspecified type of vessel, lytton or graft 07/30/2004 Other and unspecified hyperlipidemia [...] on file Legal Sex Male 3:27 AM HEEL SEAT LASTER Gender Identity Not on file Sexual Orientation Not on file Last Filed Vital Signs Vital Sign Reading Time Taken Comments Blood Pressure 120/84 06/15/2007 9:45 AM HEEL SEAT LASTER Pulse 72 06/15/2007 9:45 AM HEEL SEAT LASTER Temperature 36.4 C (97.5 F) 06/15/2007 9:45 AM HEEL SEAT LASTER Respiratory Rate 18 06/15/2007 9:45 AM HEEL SEAT LASTER Oxygen Saturation - - Inhaled Oxygen Concentration - - Weight 112.9 kg (249 lb) 06/15/2007 9:45 AM HEEL SEAT LASTER Height 177.8 cm (5' 10) 06/15/2007 9:45 AM HEEL SEAT LASTER Body Mass Index 35.73 06/15/2007 9:45 AM HEEL SEAT LASTER Plan of Treatment Health Maintenance Due Date Last Done Comments DTAP/TDAP/TD VACCINES (1 - Tdap) 1962 PNEUMOCOCCAL VACCINE 50+ YEARS (1 of 1 - PCV) 04/18/19 93 ZOSTER VACCINE (1 of 2) 1993 RSV VACCINE (60+ or ) (1 - 1-dose 75+ series) 2018 INFLUENZA VACCINE (#1) 2025 07/20/2001 Care Teams Brick Layer Relationship Specialty Start Date End Date Lino Sarah MD NO ADDRESS ON FILE PCP - General 11/29/07
--- OUTSIDE RECORDS SUMMARY | 2025-03-08 16:21 | XMS_ITS | Encounter Summary ---
Author Organization [facility] Healthcare Address [address] [place] [address] Care Team Providers Care Repair Manager Name Role Phone Deann Sanchez MD, Michele Garcia Primary Care Provide r Arvind Anthony OD Unavailable [phone] Jorgito Barahona MD Unavailable Philippe Cruz MD Unavailable Encounter Details Date Type Department Care Team (Late st Contact Info) Description 08/03/2024 Orders Only [facility] Information Management [address] [place] [address] Scanning, Provider Social History Tobacco Use [...] on file Legal Sex Male 12:27 AM SECOND MATE Gender Identity Male 06/30/2021 2:21 PM SECOND MATE Sexual Orientation Not on file documented as of this encounter Plan of Treatment Not on file documented as of this encounter Procedures Procedure Name Priority Date/Time Associated Diagnosis Comments SCAN - LABS 08/03/2024 documented in this encounter Results * SCAN - LABS (08/03/2024) us Provider Scanning Final Result documented in this encounter Visit Diagnoses Not on filedocumented in this encounter Care Teams Repair Manager Relationship Specialty Start Date End Date Michele Zacarias Jr., MD [address] [place] [id number] PCP - General Internal Medicine 10/21/22 Arvind Anthony OD [address] [id number] Optometry 10/21/22 Jorgito Barahona MD [address] [id number] Referring Physician Dermatology 10/21/22 Philippe Cruz MD [address] [place], [address] [place], [place] [id number] Consulting Physician Cardiology 10/21/22 documented as of this encounter
--- OUTSIDE RECORDS SUMMARY | 2025-03-08 16:21 | XMS_ITS | Encounter Summary ---
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
--- OUTSIDE RECORDS SUMMARY | 2025-03-08 16:21 | XMS_ITS | Encounter Summary ---
Author Organization [employer] Address [address] [place] [address] Care Team Providers Care Pitting Machine Operator Name Role Phone Lino Sarah MD Primary Care Provider Un available Encounter Details Date Type Department Care Team (Late st Contact Info) Description 06/23/2007 Orders Only [facility] 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
--- OUTSIDE RECORDS SUMMARY | 2025-03-08 16:21 | XMS_ITS | Encounter Summary ---
Author Organization [facility] Address [address] [place] [address] Care Team Providers Care Maintenance Worker Swimming Pool Name Role Phone Lino Sarah MD Primary Care Provider Un available Encounter Details Date Type Department Care Team (Late st Contact Info) Description 04/08/1998 Outpatient Historical [facility] Internal Medicine [place] [address] [facility] [address] [place] [phone] [place] [address] [place] [address] Social History Tobacco Use Types Packs/Day Years Used Date Smoking Tobacco: Never Assessed Sex and Gender Information Value Date Recorded Sex Assigned at Not on file 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
--- OUTSIDE RECORDS SUMMARY | 2025-03-08 16:21 | XMS_ITS | Encounter Summary ---
Author Organization [facility] Address [address] [place] [address] Care Team Providers Care Personnel Clerk Name Role Phone Lino Sarah MD Primary Care Provider Un available Encounter Details Date Type Department Care Team (Late st Contact Info) Description 07/18/2003 Outpatient Historical [facility] Internal Medicine [place] [address] [facility] [address] [place] [phone] [place] [address] [place] [address] Social History Tobacco Use Types Packs/Day Years Used Date Smoking Tobacco: Never Assessed Sex and Gender Information Value Date Recorded Sex Assigned at Not on file 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
--- OUTSIDE RECORDS SUMMARY | 2025-03-08 16:21 | XMS_ITS | Encounter Summary ---
Author Organization [facility] Address [address] [place] [address] Care Team Providers Care Animal Anatomy Teacher Name Role Phone Lino Sarah MD Primary Care Provider Un available Encounter Details Date Type Department Care Team (Late st Contact Info) Description 05/09/2007 Outpatient Historical [facility] Internal Medicine [place] [address] 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
--- OUTSIDE RECORDS SUMMARY | 2025-03-08 16:21 | XMS_ITS | Encounter Summary ---
Author Organization [facility] Address [address] [place] [address] Care Team Providers Care Fish Hatchery Superintendent Name Role Phone Lino Sarah MD Primary Care Provider Un available Encounter Details Date Type Department Care Team (Late st Contact Info) Description 09/01/2005 Outpatient Historical [facility] Internal Medicine [place] [address] [facility] [address] [place] [phone] Bobby Choe MD [address] [place] [address] Social History Tobacco Use Types Packs/Day Years Used Date Smoking Tobacco: Never Assessed Sex and Gender Information Value Date Recorded Sex Assigned at Not on file Legal Sex Male 3:[address] Gender Identity Not on file Sexual Orientation Not on file documented as of this encounter Last Filed Vital Signs Vital Sign Reading Time Taken Comments Blood Pressure 100/80 09/01/2005 9:[address] Pulse 76 09/01/2005 9:[address] Temperature 35.6 C (96.1 F) 09/01/2005 9:[address] Respiratory Rate 18 09/01/2005 9:[address] Oxygen Saturation - - Inhaled Oxygen Concentration - - Weight 113.9 kg (251 lb) 09/01/2005 9:[address] Height 177.8 cm (5' 10) 09/01/2005 9:[address] Body Mass Index 36.01 09/01/2005 9:[address] documented in this encounter Plan of Treatment Not on file documented as of this encounter Visit Diagnoses Not on filedocumented in this encounter Care Teams Fish Hatchery Superintendent Relationship Specialty Start Date End Date Lino Sarah MD NO ADDRESS ON FILE PCP - General 11/29/07 documented as of this encounter
--- OUTSIDE RECORDS SUMMARY | 2025-03-08 16:21 | XMS_ITS | Encounter Summary ---
Author Organization [employer] Address 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
--- OUTSIDE RECORDS SUMMARY | 2025-03-08 16:21 | XMS_ITS | Encounter Summary ---
Author Organization [facility] Healthcare Address [address] [place] [address] Care Team Providers Care Secretary Receptionist Name Role Phone Deann Sanchez MD, Michele Garcia Primary Care Provide r Arvind Anthony OD Unavailable Jorgito Barahona MD Unavailable Philippe Cruz MD Unavailable Encounter Details Date Type Department Care Team (Late st Contact Info) Description 09/28/2024 Orders Only [facility] [place] Information Management [address] [place] [address] Scanning, Provider Social History Tobacco Use [...] on file Legal Sex Male 12:27 AM SSIS SSRS DEVELOPER Gender Identity Male 06/30/2021 2:21 PM SSIS SSRS DEVELOPER Sexual Orientation Not on file documented as of this encounter Plan of Treatment Not on file documented as of this encounter Procedures Procedure Name Priority Date/Time Associated Diagnosis Comments SCAN - LABS 09/28/2024 documented in this encounter Results * SCAN - LABS (09/28/2024) us Provider Scanning Final Result documented in this encounter Visit Diagnoses Not on filedocumented in this encounter Care Teams Secretary Receptionist Relationship Specialty Start Date End Date Michele Zacarias Jr., MD [address] [place] [id number] PCP - General Internal Medicine 10/21/22 Arvind Anthony OD [address] [id number] Optometry 10/21/22 Jorgito Barahona MD [address] [phone] Referring Physician Dermatology 10/21/22 Philippe Cruz MD [address] [place] [address] [place] [address] Consulting Physician Cardiology 10/21/22 documented as of this encounter
--- OUTSIDE RECORDS SUMMARY | 2025-03-08 16:23 | XMS_ITS | Encounter Summary ---
Author Organization [facility] Healthcare Address [address] [place] [address] Care Team Providers Care Brim Plater Name Role Phone Deann Sanchez MD, Michele Garcia Primary Care Provide r Arvind Anthony OD Unavailable Jorgito Barahona MD Unavailable Philippe Cruz MD Unavailable Encounter Details Date Type Department Care Team (Late st Contact Info) Description 05/01/2024 Orders Only [facility] [place] [facility] Health Information Management [address] [place] [id number] Scanning, Provider Social History Tobacco Use [...] on file Legal Sex Male 12:27 AM FILM ARCHIVIST Gender Identity Male 06/30/2021 2:21 PM FILM ARCHIVIST Sexual Orientation Not on file documented as of this encounter Plan of Treatment Not on file documented as of this encounter Procedures Procedure Name Priority Date/Time Associated Diagnosis Comments SCAN - LABS 05/01/2024 documented in this encounter Results * SCAN - LABS (05/01/2024) us Provider Scanning Final Result documented in this encounter Visit Diagnoses Not on filedocumented in this encounter Care Teams Brim Plater Relationship Specialty Start Date End Date Michele Zacarias Jr., MD [address] [place] [id number] PCP - General Internal Medicine 10/21/22 Arvind Anthony OD [address] [id number] Optometry 10/21/22 Jorgito Barahona MD [address] [phone] Referring Physician Dermatology 10/21/22 Philippe Cruz MD [address] [place] [address], [place] [address] [place] [address] Consulting Physician Cardiology 10/21/22 documented as of this encounter
--- OUTSIDE RECORDS SUMMARY | 2025-03-08 16:23 | XMS_ITS | Encounter Summary ---
Author Organization [facility] Healthcare Address [address] [place] [address] Care Team Providers Care Optimization Consultant Name Role Phone Deann Sanchez MD, Michele Garcia Primary Care Provide r Arvind Anthony OD Unavailable Jorgito Barahona MD Unavailable Philippe Cruz MD Unavailable Encounter Details Date Type Department Care Team (Late st Contact Info) Description 07/05/2024 Orders Only [facility] [place] Health Information Management [address] [place] [id number] Scanning, Provider Social History Tobacco Use [...] on file Legal Sex Male 12:27 AM STATION BAGGAGE AGENT Gender Identity Male 06/30/2021 2:21 PM STATION BAGGAGE AGENT Sexual Orientation Not on file documented as of this encounter Plan of Treatment Not on file documented as of this encounter Procedures Procedure Name Priority Date/Time Associated Diagnosis Comments SCAN - LABS 07/05/2024 documented in this encounter Results * SCAN - LABS (07/05/2024) us Provider Scanning Final Result documented in this encounter Visit Diagnoses Not on filedocumented in this encounter Care Teams Optimization Consultant Relationship Specialty Start Date End Date Michele Zacarias Jr., MD [address] [place] [phone] PCP - General Internal Medicine 10/21/22 Arvind Anthony OD [address] [phone] Optometry 10/21/22 Jorgito Barahona MD [address] [phone] Referring Physician Dermatology 10/21/22 Philippe Cruz MD [address] [place] [address], [place] [address] [place] [address] Consulting Physician Cardiology 10/21/22 documented as of this encounter
--- OUTSIDE RECORDS SUMMARY | 2025-03-08 16:23 | XMS_ITS | Encounter Summary ---
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 Male 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 Gender Identity Male 06/30/2021 2:21 PM CHIEF 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 Sexual Orientation Not on file documented as of this encounter Plan of Treatment Not on file documented as of this encounter Procedures Procedure Name Priority Date/Time Associated Diagnosis Comments SCAN - LABS 06/05/2024 documented in this encounter Results * SCAN - LABS (06/05/2024) us Provider Scanning Final Result documented in this encounter Visit Diagnoses Not on filedocumented in this encounter Care Teams Drive Thru Order Taker Relationship Specialty Start Date End Date Michele Zacarias Jr., MD [address] [place] [id number] PCP - General Internal Medicine 10/21/22 Arvind Anthony OD [address] [phone] Optometry 10/21/22 Jorgito Barahona MD [address] [phone] Referring Physician Dermatology 10/21/22 Philippe Cruz MD [address] [place] [address], [place] [address] [place] [address] Consulting Physician Cardiology 10/21/22 documented as of this encounter
--- NOTE | 2025-03-08 17:19 | ED.GENADULT ---
HPI - General Adult General Chief complaint: Unspecified Stated complaint: shaky for past 4 hours. Nausea Time Seen by Provider: 03/08/25 15:54 Source: patient and family Mode of arrival: ambulatory Limitations: no limitations History of Present Illness HPI narrative: Patient presents with report of being shaky and with tremors approximately 4 hours. Patient had been with his in the morning while she underwent a Mohs procedure and they do note that the room was quite cold and this is when he started to feel chilled. This was associated with nausea. He also was incontinent of urine today but his believes this is because he didn't leave the room to naturally go to the bathroom for the several hours they were waiting/she was undergoing procedure. He is on warfarin for history of atrial fibrillation. No loss of Consciousness. Symptoms have resolved now, upon arrival to ED. Completely asympatomatic now including no abdominal pain. He had possibly been constipated and so took magnesium earlier. He is unsure of his last bowel movement. History of a hernia. applied heating pad. Denies any cough diarrhea. 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 Related Data Home Medications ?Medication ?Instructions ?Recorded ?Confirmed ?Last Taken ?Type blood sugar diagnostic #10 ea 07/25/19 Unknown History carvedilol 6.25 mg tablet 6.25 mg PO Q12H 07/25/19 Unknown History lancets 26 gauge (Lancets,Ultra #100 ea 07/25/19 Unknown History Thin) lisinopril 10 mg tablet 10 mg PO DAILY 07/25/19 Unknown History magnesium oxide 400 mg PO DAILY 07/25/19 Unknown History warfarin 2.5 mg tablet 2.5 mg PO DAILY 07/25/19 Unknown History Allergies Allergy/AdvReac Type Severity Reaction Status Date / Time No Known Allergies Allergy Unknown Verified 03/08/25 13:31 [facility] Past Medical History Medical History 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 HEAD: Normocephalic, atraumatic. EYES: Non injected, non icteric ENT: Nares clear, no rhinorrhea or epistaxis. Gross auditory acuity intact. NECK: Supple. No meningismus. CHEST: Speaking in full sentences. No respiratory distress. HEART: Regular rate and rhythm. . ABDOMEN: Soft, nondistended. No rigidity or guarding. Not peritoneal. No tenderness to palpation throughout. EXTREMITIES: Normal range of motion. SKIN: Warm, dry, no rash. NEURO: No focal deficits. Alert and oriented. Answering questions. Following commands. Normal speech without aphasia or dysarthria. No abnormal movements appreciated including no tremor/rigors. PSYCH: Normal mood and affect. Course Vital Signs Vital signs: Vital Signs Temperature 99.8 F H 03/08/25 13:32 Pulse Rate 102 H 03/08/25 13:32 Respiratory Rate 20 03/08/25 13:32 Blood Pressure 162/91 H 03/08/25 13:32 Pulse Oximetry 100 03/08/25 13:32 Oxygen Delivery Room Air 03/08/25 13:32 Temperature 99.8 F H 03/08/25 13:32 Pulse Rate 83 03/08/25 20:26 Respiratory Rate 20 03/08/25 20:26 Blood Pressure 111/69 03/08/25 20:26 Pulse Oximetry 97 03/08/25 20:26 Oxygen Delivery Room Air 03/08/25 13:32 Medical Decision Making MDM Narrative Medical decision making narrative: Patient presents after feeling shaky and having tremors and being chilled earlier associated with nausea. He also had extend urinary incontinence. Symptoms have completely resolved at the time presentation to the emergency department and patient and his believe that he was chilled due to the very cold temperature through they were in for several hours while underwent Mohs procedure. In addition, he did not leave the room to go to the bathroom during that time so they believe this explains his incontinence. In the emergency department he is technically afebrile but with an elevated temperature at 99.8? F. He also so mild tachycardia at 102 and he is hypertensive. On repeat assessment the heart rate and blood pressure have normalized without interval intervention. Urine does not appear to be infected. Lactic acid within normal living. Upon assessment patient notes that he is feeling markedly better and has no symptoms other than some slightly lingering nausea but attributes this to having not eaten all day. Patient is noted to become hypotensive by the nurse on 2 readings however and thus 1 L IV fluids ordered. Mild thrombocytopenia without prior for comparison. Hyperglycemia without anion gap or acidosis. Patient has mild hypercalcemia although it corrects downwards to 11.1 given albumin level. Patient has marked transaminitis without any prior for comparison. Lipase, acetaminophen level, and coags are ordered in addition to CT abdomen pelvis. INR is 2.1. Patient is on warfarin. Patient denies any known history of transaminitis or other issues with his liver. He denies any alcohol consumption. He does take 3 Tylenol tablets every night. He gets his INR checked every 4 weeks given he is on warfarin although these checks have been more frequent recently due to some variable levels. CT without acute process but there is nonobstructive pattern consistent with constipation. Hepatitis labs ordered. Confirms has a PCP, Dr Dutton (?). Patient had hyperbilirubinemia however neither the direct or indirect when fractionated are markedly elevated. Hepatitis labs are ordered. Patient otherwise not jaundiced, no tenderness on exam. Given he otherwise continues to be well appearing and is without any complaint, reasonable to discharge but with strict follow up instructions (PCP, in addition to keeping his cardiology appointment on Tuesday). Provided prescriptions for bowel regimen medications. Differential Diagnosis Differential Diagnosis: environmental/situational temperature; considered rigors secondary to infection (UTI, PNA, etc); overflow incontinence; unlikely to be seizure by report ; considered acute liver failure Vital Signs Vital Signs: Vital Signs Temperature 99.8 F H 03/08/25 13:32 Pulse Rate 102 H 03/08/25 13:32 Respiratory Rate 20 03/08/25 13:32 Blood Pressure 162/91 H 03/08/25 13:32 Pulse Oximetry 100 03/08/25 13:32 Oxygen Delivery Room Air 03/08/25 13:32 Temperature 99.8 F H 03/08/25 13:32 Pulse Rate 83 03/08/25 20:26 Respiratory Rate 20 03/08/25 20: Blood Pressure 111/69 03/08/25 20:26 Pulse Oximetry 97 03/08/25 20:26 Oxygen Delivery Room Air 03/08/25 13:32 Lab Data Lab results reviewed: Yes I reviewed the patient's lab results. 03/08/25 14:34 03/08/25 14:34 Labs: Lab Results 03/08/25 03/08/25 03/08/25 Range/Units 13:29 14:06 14:33 WBC (4.5-10.0) K/mm3 RBC (4.6-6.20) M/mm3 Hgb (14.0-18.0) g/dL Hct (42.0-52.0) % MCV (80-100) fl MCH (26-34) pg MCHC (32-36) g/dl RDW (11.5-14.5) % Plt Count (150-375) k/mm3 MPV (7.4-10.4) fl Immature Gran % (Auto) (0-0.5) % Neut % (Auto) (45.5-73.1) % Lymph % (Auto) (18.3-44.2) % [place] % (Auto) (2.6-8.5) % Eos % (Auto) (0-4.4) % Baso % (Auto) (0.2-1.2) % Lymph # (Auto) (0.9-3.2) K/mm3 [place]ward # (Auto) (0.1-0.6) K/mm3 Eos # (Auto) (0-0.3) K/mm3 Baso # (Auto) (0.0-0.1) K/mm3 Abs Immat Gran (auto) (0.00-0.031) K/mm3 Absolute Neuts (auto) (1.3-6.7) K/mm3 Absolute Nucleated RBC (0.0-0.012) K/mm3 Nucleated RBC % (0.0-0.2) % % Immature Plt Fraction (0.9-11.2) % PT 22.9 H (11.1-14.7) Seconds INR 2.1 APTT 29.4 (22.3-36.8) Seconds Sodium (137-145) mmol/L Potassium (3.4-5.0) mmol/L Chloride (98-107) mmol/L Carbon Dioxide (22-30) mmol/L Anion Gap (4-12) mmol/L BUN (9-20) mg/dL Creatinine (0.7-1.3) mg/dL Estim Creat Clear Calc ml/min Estimated GFR (59 - ) Glucose (65-110) mg/dL POC Capillary Glucose 194 H (65-105) mg/dl Lactic Acid (0.7-2.0) mmol/L Calcium (8.4-10.2) mg/dL Total Bilirubin (0.2-1.3) mg/dL Direct Bilirubin 0.4 H (0-0.3) mg/dL Indirect Bilirubin 1.2 H (0-1.1) mg/dL AST (17-59) U/L ALT (6-50) U/L Alkaline Phosphatase (38-126) U/L Total Protein (6.3-8.2) g/dL Albumin (3.5-5.1) g/dL Lipase 46 (23-300) U/L Urine Color Dark yellow (Yellow) Urine Appearance Clear (Clear) Urine pH 5.0 (5.0-9.0) Ur Specific [place] 1.019 (1.001-1.035) Urine Protein 1+ H (Negative) mg/dL Urine Glucose (UA) Trace H (Negative) mg/dL Urine Ketones Trace H (Negative) mg/dL Ur Blood (Man) Negative (Negative) Urine Nitrate Negative (Negative) Urine Bilirubin 1+ H (Negative) Urine Urobilinogen 1.0 (<2.0) mg/dL Leukocyte Esterase Rfl Negative (Negative) HERIBERTO/UL Urine RBC 0-2 (0-2) /hpf Urine WBC 0-5 (0-3) /hpf Ur Squamous Epith Cells None seen (Few) /hpf Urine Bacteria None seen /hpf Urine Casts 3-5 Acetaminophen < 10 L (10-30) ug/mL Hepatitis A Total & IgM Cancelled Hepatitis A Ab Total Hep Bs Antigen Negative (Negative) Hep Bs Antibody Negative Hep B Core Total Ab Cancelled Hepatitis C Ab Screen Negative (Negative) Influenza A (RT-PCR) (Negative) Influenza B (RT-PCR) (Negative) RSV (RT-PCR) (Negative) SARS-CoV-2 RNA (RT-PCR) (Negative) 09/05/25 09/05/25 09/07/25 Range/Units 14:34 17:57 14:33 WBC 5.6 (4.5-10.0) K/mm3 RBC 4.26 L (4.6-6.20) M/mm3 Hgb 14.1 (14.0-18.0) g/dL Hct 42.2 (42.0-52.0) % MCV 99.1 (80-100) fl MCH 33.1 (26-34) pg MCHC 33.4 (32-36) g/dl RDW 12.4 (11.5-14.5) % Plt Count 137 L (150-375) k/mm3 MPV 10.4 (7.4-10.4) fl Immature Gran % (Auto) 0.4 (0-0.5) % Neut % (Auto) 93.0 H (45.5-73.1) % Lymph % (Auto) 4.0 L (18.3-44.2) % Woodward % (Auto) 1.8 L (2.6-8.5) % Eos % (Auto) 0.4 (0-4.4) % Baso % (Auto) 0.4 (0.2-1.2) % Lymph # (Auto) 0.22 L (0.9-3.2) K/mm3 [place]ward # (Auto) 0.1 (0.1-0.6) K/mm3 Eos # (Auto) 0.0 (0-0.3) K/mm3 Baso # (Auto) 0.0 (0.0-0.1) K/mm3 Abs Immat Gran (auto) 0.02 (0.00-0.031) K/mm3 Absolute Neuts (auto) 5.2 (1.3-6.7) K/mm3 Absolute Nucleated RBC 0.000 (0.0-0.012) K/mm3 Nucleated RBC % 0.0 (0.0-0.2) % % Immature Plt Fraction 3.1 (0.9-11.2) % PT (11.1-14.7) Seconds INR APTT (22.3-36.8) Seconds Sodium 137 (137-145) mmol/L Potassium 4.7 (3.4-5.0) mmol/L Chloride 105 (98-107) mmol/L Carbon Dioxide 23 (22-30) mmol/L Anion Gap 9 (4-12) mmol/L BUN 27 H (9-20) mg/dL Creatinine 1.27 (0.7-1.3) mg/dL Estim Creat Clear Calc 39 ml/min Estimated GFR 54 L (59 - ) Glucose 223 H (65-110) mg/dL POC Capillary Glucose (65-105) mg/dl Lactic Acid 1.9 (0.7-2.0) mmol/L Calcium 11.5 H (8.4-10.2) mg/dL Total Bilirubin 2.8 H (0.2-1.3) mg/dL Direct Bilirubin (0-0.3) mg/dL Indirect Bilirubin (0-1.1) mg/dL AST 801 H (17-59) U/L ALT 502 H (6-50) U/L Alkaline Phosphatase 258 H (38-126) U/L Total Protein 7.3 (6.3-8.2) g/dL Albumin 4.5 (3.5-5.1) g/dL Lipase (23-300) U/L Urine Color (Yellow) Urine Appearance (Clear) Urine pH (5.0-9.0) Ur Specific [place] (1.001-1.035) Urine Protein (Negative) mg/dL Urine Glucose (UA) (Negative) mg/dL Urine Ketones (Negative) mg/dL Ur Blood (Man) (Negative) Urine Nitrate (Negative) Urine Bilirubin (Negative) Urine Urobilinogen (<2.0) mg/dL Leukocyte Esterase Rfl (Negative) HERIBERTO/UL Urine RBC (0-2) /hpf Urine WBC (0-3) /hpf Ur Squamous Epith Cells (Few) /hpf Urine Bacteria /hpf Urine Casts Acetaminophen (10-30) ug/mL Hepatitis A Total & IgM Hepatitis A Ab Total Pending Hep Bs Antigen (Negative) Hep Bs Antibody Hep B Core Total Ab Pending Hepatitis C Ab Screen (Negative) Influenza A (RT-PCR) Negative (Negative) Influenza B (RT-PCR) Negative (Negative) RSV (RT-PCR) Negative (Negative) SARS-CoV-2 RNA (RT-PCR) Negative (Negative) Imaging Data Radiologist's impression: Impression: 1: No acute cardiopulmonary disease. 2: Chronic left basilar infiltrates, consistent with atelectasis or scarring. IMPRESSION: 1. No acute abdominal abnormality. ECG Data EKG #1: Attestation: I personally reviewed and interpreted this ECG as follows: ECG completion date: 03/08/25 ECG completion time: 14:40 Interpretation: Normal sinus rhythm at a rate of 98 beats per minute. NJ 155. QT/QTc 348/445. There is significant baseline wandering limiting full interpretation. Left bundle-branch block with QRS duration greater than 120 milliseconds (146), dominant S-wave in V1, broad monophasic R-wave in lateral leads (1, aVL, V5-V6), absence of Q-waves in lateral leads. Discharge Plan Discharge Clinical Impression: Episode of shaking, Nausea, Hyperglycemia, Hypercalcemia, Transaminitis, Constipation Patient Disposition: Home Condition: Stable Instructions: Antibiotic Form, Constipation (DC), High Fiber Diet (ED), Acute Nausea and Vomiting (DC), Hypercalcemia (ED), Transaminitis (ED) Additional Instructions: While I am reassured that your symptoms resolved and there are several reasons why you might have experienced these symptoms as you/your explained, it is important that you follow up with your primary care physician for your very elevated liver enzymes (in the multi-hundreds) although your CT scan was normal (except for showing constipation. Drink plenty of fluids and You can use the psyllium/fiber and add Miralax if you still need to have a bowel movement. If still constipated, can use the laxative (magnesium citrate). Also keep your upcoming already scheduled appointment with your betting agency manager. Return to the emergency department with any new or worsening symptoms. Patient Language: Portuguese Prescriptions: New Metamucil 3.4 gram/5.4 gram powder 1 tbsp PO DAILY Qty: 660 0RF Rx Instructions: mix into at least 8 oz of water or juice before administering polyethylene glycol 3350 [Miralax] 17 gram/dose powder 17 g PO DAILY Qty: 119 0RF magnesium citrate Solution 150 ml PO DAILY PRN (Reason: constipation) Qty: 296 0RF No Action pioglitazone 45 mg tablet 45 mg PO DAILY Qty: 90 2RF Rx Instructions: TAKE 1 TABLET BY MOUTH EVERY DAY. DOSAGE INCREASE carvedilol 6.25 mg tablet 6.25 mg PO Q12H Rx Instructions: must administer with a meal/food (DME) lancets [Lancets,Ultra Thin] 26 gauge misc See Rx Instructions .ROUTE .MEDSUPPLY Qty: 100 Rx Instructions: Use 1 lancet to check fasting blood sugar lisinopril 10 mg tablet 10 mg PO DAILY magnesium oxide 400 mg magnesium tablet 400 mg PO DAILY (DME) blood sugar diagnostic Strip See Rx Instructions .ROUTE .MEDSUPPLY Qty: 10 Rx Instructions: Use 1 test strip to check fasting glucose daily warfarin 2.5 mg tablet 2.5 mg PO DAILY omeprazole 20 mg capsule,delayed release(DR/EC) 20 mg PO DAILY Qty: 90 4RF atorvastatin 80 mg tablet 80 mg PO DAILY Qty: 90 4RF hydrochlorothiazide 25 mg tablet 25 mg PO DAILY Qty: 90 4RF metformin 1,000 mg tablet 1,000 mg PO BID Qty: 30 0RF Follow-up/Referrals: Philippe Cruz MD [Physician, Cardiology] Deann,Michele Garcia Jr., MD [Primary Care Provider, Unknown] Time of Disposition: 19:51
[2025-03-08] MEDS: ONDANSETRON HCL ODT 4 MG TABLET PO (17:34)
[2025-03-08] MEDS: SODIUM CHLORIDE 0.9% IV 1,000 ML 999 ML IV CONT (17:35)
[2025-03-08 17:49] LABS: Acetaminophen < 10 ug/mL (10-30)
[2025-03-08 17:51] LABS: Lipase 46 U/L (23-300)
[2025-03-08 17:56] LABS: INR 2.1; Partial Thromboplastin Time 29.4 Seconds (22.3-36.8); Prothrombin Time 22.9 Seconds (11.1-14.7)
[2025-03-08 18:36] LABS: Influenza A QL RT-PCR Negative (Negative); Influenza B QL RT-PCR Negative (Negative); RSV RNA, RT-PCR Negative (Negative); SARS-CoV-2 RNA PCR Negative (Negative)
[2025-03-08 19:19] LABS: Hepatitis B Surface Antigen Negative (Negative)
[2025-03-08 19:37] LABS: Hepatitis B Surface Anti Res Negative
[2025-03-12 04:07] LABS: Hep A Ab, Total Negative (Negative)
[2025-03-12 06:07] LABS: Hep B Core Ab, Total Negative (Negative)
== END 2025-03-08 20:05 | disposition home or self-care (01) ==
PROVIDERS: Emergency Medicine; Emergency Provider Student in an Organized Health Care Education/Training Program; PCP Hospitalist
DX: R25.1 Tremor, unspecified (principal); E83.52 Hypercalcemia; R11.0 Nausea; R74.01 Elevation of levels of liver transaminase levels; K59.00 Constipation, unspecified; Z20.822 Contact with and (suspected) exposure to COVID-19; I48.0 Paroxysmal atrial fibrillation; Z79.01 Long term (current) use of anticoagulants; I44.7 Left bundle-branch block, unspecified; I49.1 Atrial premature depolarization
CPT/HCPCS: 36415; 71046; 74177; 80053; 80143; 81001; 82248; 82948; 83605; 83690; 85025; 85055; 85610; 85730; 86704; 86706; 86708; 86803; 87340; 87637; 93005; 96360; 99284; A9270; J7030; Q9967

== ENCOUNTER 2025-04-18 12:36 | Outpatient (RCR) | payer MEDICARE, SELFPAY ==
[2025-01-30 09:43] LABS: INR 3.2; Prothrombin Time 32.2 Seconds (11.1-14.7)
[2025-03-05 09:23] LABS: INR 2.2; Prothrombin Time 23.9 Seconds (11.1-14.7)
[2025-03-26 10:21] LABS: INR 1.6; Prothrombin Time 19.0 Seconds (11.1-14.7)
[2025-04-05 09:42] LABS: INR 1.9; Prothrombin Time 20.9 Seconds (11.1-14.7)
[2025-04-18 13:25] LABS: INR 2.2; Prothrombin Time 23.9 Seconds (11.1-14.7)
== END 2025-04-30 23:59 | disposition home or self-care (01) ==
LOC: ANHLAB 12:36
PROVIDERS: PCP Hospitalist; Visit Provider Internal Medicine Cardiovascular Disease
DX: Z51.81 Encounter for therapeutic drug level monitoring (principal); I48.0 Paroxysmal atrial fibrillation; Z79.01 Long term (current) use of anticoagulants
CPT/HCPCS: 36415; 85610